=== PATIENT | male | born 1975 | race Two or more races ===

== ENCOUNTER 2021-06-17 17:39 | Emergency (ER) | payer MEDICAID, SELFPAY ==
--- NOTE | ~2021-06-17 | US_ITS ---
EXAMINATION: US VENOUS ULTRASOUND WITH DOPPLER LOWER EXTREMITY, LEFT CLINICAL INFORMATION: Left lower leg pain and swelling COMPARISON: None TECHNIQUE: Ultrasound of the deep veins is performed from the hip to the calf with compression sonography and color and pulse Doppler assessment. Spectral analysis with color-flow imaging is performed. FINDINGS: There is normal venous compression and respiratory variation and augmented flow. The visualized common femoral vein, superficial femoral vein, profunda femoral vein, popliteal vein, and the trifurcation region shows no evidence of deep venous thrombosis. There is no significant popliteal fossa cyst. If the patient's symptoms persist, followup ultrasound in 5 days 7 days might be of value to exclude proximal propagation from a non-visualized calf vein. US/US venous duplex LE IMPRESSION: No DVT demonstrated in the left lower extremity.
[2021-06-17 17:58] VITALS: BP 168/101; PULSE 104; RESP 18; TEMP 36.3; O2SAT 99; BMI 31.7
--- NOTE | 2021-06-17 19:39 | ED_ITS ---
HPI - Extremity Injury (Lower) General Chief Complaint: Extremity Injury, Lower Stated Complaint: left lower leg swollen Time Seen by Provider: 06/17/21 19:39 Source: patient Mode of arrival: ambulatory Limitations: no limitations History of Present Illness HPI Narrative: Patient is a 45 year old male presenting to the emergency department today with left lower leg pain. Patient states that as soon as he steps onto his left foot, he has pain that shoots from his heel to the rest of his foot. Patient states that because he has had some swelling to his lower leg, he would like to be evaluated for a blood clot. Patient denies any dizziness, lightheadedness, abdominal pain, nausea, vomiting, fever, chills, blurry vision, double vision, loss of vision, chest pain, difficulty breathing, shortness of breath, back pain, night sweats, pain with urination, increased urinary frequency, increased urinary urgency, blood in his urine or stool, syncope or a near syncopal episode, recent trauma or falls, bowel incontinence, bladder incontinence, bowel retention, bladder retention, or any other complaints at this time. Related Data Allergies Allergy/AdvReac Type Severity Reaction Status Date / Time No Known Allergies Allergy Verified 06/17/21 18:01 Review of Systems Constitutional: Constitutional: Reports no additional constitutional complaints, Denies chills, Denies fever(s) and Denies night sweats Eyes: Eyes: Reports no additional eye complaints, Denies blurry vision, Denies change in vision, Denies diplopia, Denies eye discharge, Denies loss of vision and Denies eye pain ENT: Denies dizziness Cardiovascular: Cardiovascular: Reports no additional cardiovascular complaints, Denies chest pain, Denies lightheadedness, Denies Loss of Consciousness and Denies dyspnea Respiratory: Respiratory: Reports no additional respiratory complaints and Denies dyspnea Gastrointestinal: Gastrointestinal: Reports no additional gastrointestinal complaints, Denies abdominal pain, Denies melena, Denies hematochezia, Denies change in bowel habits and Denies change in stool character Genitourinary: Genitourinary: Reports no additional male genitourinary complaints, Denies hematuria, Denies oliguria, Denies difficulty urinating, Denies dysuria, Denies urinary frequency, Denies urinary hesitancy, Denies urinary incontinence and Denies urinary urgency Musculoskeletal: Musculoskeletal: Reports no additional musculoskeletal complaints, Denies numbness and Denies tingling Comments: left heel pain, left lower leg swelling Neurologic: Denies dizziness, Denies loss of vision, Denies numbness and Denies tingling Psychiatric: Psychiatric: Reports no additional psychiatric complaints Endocrine: Endocrine: Reports no additional endocrine complaints Hematologic/Lymphatic: Hematologic/Lymphatic: Reports no additional hematologic/lymphatic complaints Allergic/Immunologic: Allergic/Immunologic: Reports no additional allergic/immunologic complaints [facility] Past Medical History Attestation statement: The following information was validated with the patient. Source: old records reviewed Medical History HTN (hypertension) Social History Social History Advance Directives: No Advance Directives Information Provided: No Physical Exam Vital Signs: Vital Signs: Last Vital Signs Temp 97.3 F 06/17/21 17:58 Pulse 104 H 06/17/21 17:58 Resp 18 06/17/21 17:58 BP 168/101 H 06/17/21 17:58 Pulse Ox 99 06/17/21 17:58 BMI result Body Mass Index 31.7 Const: General: cooperative, no acute distress, alert and awake Nutritional Appearance: well nourished Orientation/consciousness: patient oriented x3 Limitations: no limitations HENMT: Head: Yes normal to inspection and Yes atraumatic Ears: hearing grossly normal bilaterally and external ears normal General nose exam: Normal external nose present, no nasal discharge noted and no epistaxis Face and sinus: Yes normal facial exam, No abrasion and No laceration Mouth: Normal oral and palatal mucosa present, no drooling and no muffled voice Eyes: General: appearance normal, both eyes and all related structures Periorbital: periorbital findings normal Eyelids: Yes eyelids normal Conjunctivae: conjunctivae normal Pupils: Equal, round and reactive pupils present EOM: EOMs intact bilaterally Neck: Neck: Yes normal visual inspection, Yes full ROM and Yes no lymphadenopathy Chest: Chest palpation & inspection: normal inspection of the chest Resp: Effort & Inspection: normal respiratory effort and able to speak in complete sentences Auscultation: clear to auscultation bilaterally Cardio: Rate: regular rate Rhythm: regular rhythm GI: Inspection: Yes normal to inspection Neuro: General: patient oriented x3 and moves all extremities Cranial nerves: Yes Equal, round and reactive pupils present Cognition (Neuro): normal cognition Motor exam (neuro): 5/5 motor strength present throughout Sensory Exam: Normal double simultaneous stimulation for sensation Coordination: [id number] test normal Extrem: General: Yes normal to inspection, Yes full ROM and Yes capillary refill normal Psych: Appearance: grossly normal Mental Status: mental status grossly normal Affect: normal affect Attitude: cooperative Thought process: Normal thought process present Thought content: Normal thought content present Insight: Good insight present (Psych) MDM - Extremity Injury (Lower) MDM Narrative Medical decision making narrative: Patient is a 45 year old male presenting to the emergency department today with left heel pain and lower extremity swelling. Patient's physical exam was unremarkable. No swelling was appreciated to the left lower extremity. Patient's left lower leg ultrasound showed no acute process. I explained my physical exam findings as well as all test results to the patient. I answered all questions asked by the patient. I explained to the patient that the symptoms he is describing are consistent with plantar fasciaitis. I stressed the importance of the patient taking his medication as prescribed. I stressed the importance of the patient following up with his primary care provider and an orthopedic provider. I stressed the importance of the patient returning to the emergency department immediately if his symptoms were to worsen or if he were to develop any dizziness, shortness of breath, difficulty breathing, chest pain, blurry vision, loss of vision, nausea, vomiting, abdominal pain, fever, chills, back pain, or any other complaints. Patient verbalized agreement and understanding with this treatment plan and discharge. Differential Diagnosis Differential diagnosis: Likely ankle sprain and strain (plantar fasc) Medical Records Attestation: I reviewed the patient's medical records. Imaging Data Left lower leg venous US: Attestation: I personally reviewed and interpreted this imaging study as follows: Radiologist's impression: EXAMINATION:? US VENOUS ULTRASOUND WITH DOPPLER LOWER EXTREMITY, LEFT CLINICAL INFORMATION:? Left lower leg pain and swelling COMPARISON:? None TECHNIQUE: Ultrasound of the deep veins is performed from the hip to the calf with compression sonography and color and pulse Doppler assessment. Spectral analysis with color-flow imaging is performed. FINDINGS: There is normal venous compression and respiratory variation and augmented flow. The visualized common femoral vein, superficial femoral vein, profunda femoral vein, popliteal vein, and the trifurcation region shows no evidence of deep venous thrombosis. ? There is no significant popliteal fossa cyst. If the patient's symptoms persist, followup ultrasound in 5 days 7 days might be of value to exclude proximal propagation from a non-visualized calf vein. US/US venous duplex LE LT IMPRESSION: No DVT demonstrated in the left lower extremity. Dictated By: FLACO TORREZ MD Signed By: Electronically signed by FLACO TORREZ MD 06/17/212020 Discharge Plan Discharge Clinical Impression: Plantar fasciitis Patient Disposition: Home, Self-Care Instructions: Plantar Fasciitis (ED), Plantar Fasciitis Exercises (ED) Additional Instructions: Follow up with your primary care provider. Return to the emergency department immediately if your symptoms worsen or if you develop any dizziness, shortness of breath, difficulty breathing, chest pain, blurry vision, loss of vision, nausea, vomiting, abdominal pain, fever, chills, back pain, or any other complaints. Referrals: Xander Rosa MD [Physician] - 2 days Jennifer Evans NP [Primary Care Provider] - 2 days Discharge Date/Time: 06/17/21 21:11 Print Language: Burmese
[2021-06-17] MEDS: methylPREDNISolone Sod Succ 125 MG/2 ML VIAL 120 MG IM (20:52)
== END 2021-06-17 21:11 | disposition home or self-care (01) ==
PROVIDERS: Emergency Provider Internal Medicine; PCP Nurse Practitioner Primary Care
DX: M72.2 Plantar fascial fibromatosis (principal); M79.662 Pain in left lower leg; I10 Essential (primary) hypertension
CPT/HCPCS: 93971; 96372; 99282; 99284; J2930

== ENCOUNTER 2022-09-26 02:56 | Inpatient (IN) | payer MEDICAID, SELFPAY ==
[2022-09-26] VITALS (9 sets, daily range): BP systolic 128–167; BP diastolic 75–96; PULSE 64–88; RESP 18–21; TEMP 36.5–36.9; O2SAT 95–97; BMI 30.8; BMI 31.7
--- NOTE | ~2022-09-26 | XR_ITS ---
EXAMINATION: XR CHEST CLINICAL INFORMATION: Chest pain COMPARISON: 02/14/2013 TECHNIQUE: Frontal view of the chest was obtained. FINDINGS: No significant abnormality is noted involving the heart, lungs, mediastinum, bony thorax or soft tissues. XR/XR chest 1V IMPRESSION: Unremarkable examination.
--- NOTE | 2022-09-26 03:01 | ECG_ITS ---
Test Reason : CP Blood Pressure : / mmHG Vent. Rate : 082 BPM Atrial Rate : 082 BPM P-R Int : 136 ms QRS Dur : 100 ms QT Int : 378 ms P-R-T Axes : 056 044 019 degrees QTc Int : 441 ms Normal sinus rhythm Left ventricular hypertrophy with repolarization abnormality ( Sokolow-Trejo ) Nonspecific ST abnormality Abnormal ECG When compared with ECG of 14-FEB-2013 15:51, No significant change was found Referred By: Generic ED Physician Electronically Signed By:SARAY GARCIA MD
[2022-09-26 03:27] LABS: MANUAL DIFF FLAG NO
[2022-09-26 03:28] LABS: Basophils Percent Auto 0.4 % (0-2); Eosinophils Absolute Auto 0.4 X10*3/uL (0.0-0.4); Hematocrit 44.2 % (42.0-52.0); Hemoglobin 15.8 g/dl (14.0-18.0); Imm Gran Abs Auto 0.03 X10*3/uL (0.00-0.03); Imm Gran Pct Auto 0.3 % (0.0-0.4); Lymphocytes Absolute Auto 3.1 X10*3/uL (1.2-4.9); Lymphocytes Percent Auto 31.2 % (20-40); Mean Corpuscular HGB Conc 35.7 g/dl (31.0-36.0); Mean Corpuscular Hemoglobin 30.3 pg (27.0-33.0); Mean Corpuscular Volume 84.8 fL (80.0-98.0); Mean Platelet Volume 10.8 fL (9.4-12.4); Monocytes Absolute Auto 0.7 X10*3/uL (0.1-1.2); Neutrophils Absolute Auto 5.6 x10*3/uL (2.0-8.3); Neutrophils Percent Auto 57.1 % (45-73); Platelet Count 285 X10*3/uL (160-400); Red Blood Count 5.21 X10*6/uL (4.60-5.80); Red Cell Distribution Width 13.2 % (11.0-16.0); White Blood Count 9.8 X10*3/uL (4.8-10.8)
--- NOTE | 2022-09-26 03:38 | PC.NURSE ---
patient received in the ER patient complained of chest pain 11/19 patient vitals are being monitored patient is being seen by the doctor patient labs and ekg was given to the doctor patient will be monitored for safety
[2022-09-26 03:41] LABS: Anion Gap 16 (12-20); Blood Urea Nitrogen 22 mg/dL (9-16); Calcium 9.1 mg/dL (8.4-10.2); Carbon Dioxide 23 mmol/L (22-29); Chloride 104 mmol/L (96-108); Creatinine Clr Calc Pharmacy 88.9; Estimated Glomerular Filt Rate > 60; Glucose Random 172 mg/dL (60-115); Potassium 3.6 mmol/L (3.3-5.1); Sodium 139 mmol/L (135-145)
[2022-09-26 03:47] LABS: Troponin-I High Sensitivity 3.4 ng/L (<3.5-35.0)
--- NOTE | 2022-09-26 05:27 | ED_ITS ---
HPI - Chest Pain General Chief Complaint: Chest Pain Stated Complaint: Chest pain, cant feel L arm/ hand Time Seen by Provider: 09/26/22 05:26 Source: patient and family (, Mariya) Mode of arrival: ambulatory Limitations: no limitations History of Present Illness HPI narrative: 46-year-old male with a history of hypertension, non compliant with his lisinopril for 3 months who presents emergency department for evaluation of chest pain. The patient states that at 01:00 hours he was playing video games when he had a sudden onset chest pain. Patient points to his upper sternum when asked to localize the pain. He describes the pain is a tightness and heaviness. The pain is been constant since onset. States the pain was initially 10/10 at the time my evaluation the pain was 3/10 without any treatment. He states that he also had left arm numbness and weakness associated with the chest pain. He was diaphoretic and short of breath. The patient states that this is probably his 6th episode of this type of pain over the last 2-3 weeks. He states that several of his chest pain episodes came on after walking up stairs or after lifting heavy objects. Patient states that both his mother and father had heart attacks when they were in their 60s. He does not know if he has elevated cholesterol. He does have hypertension and he has been noncompliant with his medications for 3 months. Related Data Allergies Allergy/AdvReac Type Severity Reaction Status Date / Time No Known Allergies Allergy Verified 06/17/21 18:01 Review of Systems Review of Systems: Yes all other systems are reviewed and are negative [facility] Past Medical History [facility] Narrative: Social history: Patient is . He denies tobacco use. He occasionally drinks alcohol. He denies drug use. Medical History HTN (hypertension) Social History Social History Alcohol intake: never Smoked in Last 30 Days: No Use of substances other than those prescribed or required for medical reasons: No Advance Directives: No Advance Directives Information Provided: Yes Physical Exam Vital Signs: Vital Signs: Last Vital Signs Temp 98.4 F 09/26/22 06:11 Pulse 79 09/26/22 06:17 Resp 21 H 09/26/22 06:11 BP 145/88 H 09/26/22 06:17 Pulse Ox 97 09/26/22 06:11 O2 Del Method Room Air 09/26/22 06:11 BMI result Body Mass Index 30.8 Const: General: cooperative and no acute distress Orientation/consciousness: oriented to person and oriented to place Limitations: no limitations HEENT: Head: Yes normal to inspection, Yes normocephalic and Yes atraumatic Ears: external ears normal General nose exam: Normal external nose present Face and sinus: Yes normal facial exam Mouth: Normal oral and palatal mucosa present Throat: Yes posterior oropharynx normal Eyes: General: appearance normal, both eyes and all related structures Pupils: Equal, round and reactive pupils present Neck: Neck: Yes normal visual inspection, Yes no lymphadenopathy, Yes trachea midline and Yes supple Chest: Chest palpation & inspection: normal inspection of the chest and normal palpation of entire chest wall Resp: Effort & Inspection: normal respiratory effort and able to speak in complete sentences Auscultation: clear to auscultation bilaterally Cardio: Rate: regular rate Rhythm: regular rhythm Heart sounds: S1 normal heart sound present, S2 normal heart sound present and no murmurs GI: Inspection: Yes normal to inspection Palpation (GI): Soft to palpation, nontender and no guarding Auscultation: normal bowel sounds : General: Yes no CVA tenderness Back/Spine/Pelvis: Back: no CVA tenderness Skin: General skin exam: no rashes or lesions noted Neuro: General: oriented to person and oriented to place Cranial nerves: Yes CN's II-XII intact bilaterally and Yes Equal, round and reactive pupils present Cognition (Neuro): normal cognition Motor exam (neuro): 5/5 motor strength present throughout Extrem: General: Yes normal to inspection Psych: Appearance: grossly normal Speech and movement: Normal speech and movement present Affect: normal affect Attitude: cooperative Thought process: Normal thought process present Thought content: Normal thought content present Medications Administered Generic Name Dose Route Start Last Admin Trade Name Freq PRN Reason Stop Dose Admin Nitroglycerin 0.4 mg 09/26/22 05:46 09/26/22 06:17 Nitroglycerin 0.4 Mg Tab.Subl SUBLINGUAL 3 tab [id number] PRN Administration Chest Pain Discontinued Medications Generic Name Dose Route Start Last Admin Trade Name Freq PRN Reason Stop Dose Admin Aspirin 324 mg 09/26/22 05:46 09/26/22 06:15 Aspirin 81 Mg Tab.Chew PO 09/26/22 05:47 324 mg ONCE STA Administration Lactated Ringer's 1,000 mls @ 999 mls/hr 09/26/22 06:00 09/26/22 06:29 Lr IV 09/26/22 07:00 999 mls/hr .[id number] SONG Administration Medical Decision Making Medical Decision Making MDM Narrative: 46-year-old male who presents emergency department for evaluation of sudden onset of sternal chest heaviness/tightness which began at 01:00 hours when he wa s playing a video game. Patient's chest pain was associated with left arm numbness or weakness, diaphoresis and shortness of breath. The patient states that this is his 6th episode chest tightness/heaviness over the past 2-3 weeks. Several of these episodes came after minimal exertion such as walking up stairs or lifting heavy objects. Patient's vital signs did reveal an elevated blood pressure of 167/96 otherwise unremarkable. The patient's physical examination was unremarkable. Laboratory evaluation was ordered. Patient was ordered to get aspirin 324 mg to chew and nitroglycerin 0.4 mg sublingually Q 5 minutes x3 to see if this improves his pain. 0557: My interpretation patient's laboratory evaluation is as follows: CBC was normal. BMP revealed an elevated glucose of 172. Patient's initial high sensitive troponin was detectable but not elevated at 3.4. Repeat troponin was ordered for 06:30 hours. The patient's HEART score was 4 (H1,E0,A1,R2,T0) suggesting that he is at m oderate risk for MACE. 0659: Patient's repeat troponin significantly elevated at 284.9. The patient's pain did improve after getting sublingual nitroglycerin he is currently pain-free. I did discuss the patient's presentation elevated troponin with the covering qa reviewer, Dr. Aparicio. He recommended that we admit the patient here for further management. He also recommended atorvastatin 80 mg orally, metoprolol 25 mg orally, nitroglycerin paste 1 in to the chest wall, low-dose heparin and STEMI protocol, repeat EKG. He does not want the patient to get Brilinta or Plavix at this time. I will discuss the patient's presentation with the covering hospitalist. 0726: I did discuss the patient's presentation with the covering hospitalist Dr. Jansen. Patient's repeat EKG was unchanged with no ST segment elevation depression. Differential Diagnosis Differential diagnosis includes was not limited to myocardial infarction, myocardial ischemia, new onset angina, anxiety, costochondritis Admission/Observation Consideration of admission/observation: Escalation of care including admi ssion/observation considered Consult Healthcare Provider Management of the patient was discussed with: Hospitalist and Gl Accountant Lab Data MDM Lab Attestation statement: I reviewed the patient's lab results. 09/26/22 03:22 09/26/22 03:22 Labs: Lab Results 09/26/22 09/26/22 09/26/22 Range/Units 03:22 03:22 03:22 WBC 9.8 (4.8-10.8) X10*3/uL RBC 5.21 (4.60-5.80) X10*6/uL Hgb 15.8 (14.0-18.0) g/dl Hct 44.2 (42.0-52.0) % MCV 84.8 (80.0-98.0) fL MCH 30.3 (27.0-33.0) pg MCHC 35.7 (31.0-36.0) g/dl RDW 13.2 (11.0-16.0) % Plt Count 285 (160-400) X10*3/uL MPV 10.8 (9.4-12.4) fL Immature Gran % (Auto) 0.3 (0.0-0.4) % Neut % (Auto) 57.1 (45-73) % Lymph % (Auto) 31.2 (20-40) % [place] % (Auto) 7.0 (2-11) % Eos % (Auto) 4.0 (0-4) % Baso % (Auto) 0.4 (0-2) % Lymph # (Auto) 3.1 (1.2-4.9) X10*3/uL [place] # (Auto) 0.7 (0.1-1.2) X10*3/uL Eos # (Auto) 0.4 (0.0-0.4) X10*3/uL Baso # (Auto) 0.0 (0.0-0.2) X10*3/uL Abs Immat Gran (auto) 0.03 (0.00-0.03) X10*3/uL Absolute Neuts (auto) 5.6 (2.0-8.3) x10*3/uL Absolute Nucleated RBC 0.000 (0.0-0.012) X10*3/uL Nucleated RBC % (auto) 0.0 (0.0-0.2) /100WBC PT INR APTT Sodium 139 (135-145) mmol/L Potassium 3.6 (3.3-5.1) mmol/L Chloride 104 (96-108) mmol/L Carbon Dioxide 23 (22-29) mmol/L Anion Gap 16 (12-20) BUN 22 H (9-16) mg/dL Creatinine 1.19 (0.5-1.4) mg/dL Estim Creat Clear Calc 88.9 Estimated GFR > 60 Random Glucose 172 H (60-115) mg/dL Calcium 9.1 (8.4-10.2) mg/dL Troponin I High Sens 3.4 (<3.5-35.0) ng/L 09/26/22 09/26/22 09/26/22 Range/Units 06:02 07:03 07:03 WBC 9.2 (4.8-10.8) X10*3/uL RBC 4.72 (4.60-5.80) X10*6/uL Hgb 14.6 (14.0-18.0) g/dl Hct 40.9 L (42.0-52.0) % MCV 86.7 (80.0-98.0) fL MCH 30.9 (27.0-33.0) pg MCHC 35.7 (31.0-36.0) g/dl RDW 13.3 (11.0-16.0) % Plt Count 257 (160-400) X10*3/uL MPV 11.3 (9.4-12.4) fL Immature Gran % (Auto) (0.0-0.4) % Neut % (Auto) (45-73) % Lymph % (Auto) (20-40) % [place] % (Auto) (2-11) % Eos % (Auto) (0-4) % Baso % (Auto) (0-2) % Lymph # (Auto) (1.2-4.9) X10*3/uL [place] # (Auto) (0.1-1.2) X10*3/uL Eos # (Auto) (0.0-0.4) X10*3/uL Baso # (Auto) (0.0-0.2) X10*3/uL Abs Immat Gran (auto) (0.00-0.03) X10*3/uL Absolute Neuts (auto) (2.0-8.3) x10*3/uL Absolute Nucleated RBC 0.000 (0.0-0.012) X10*3/uL Nucleated RBC % (auto) 0.0 (0.0-0.2) /100WBC PT INR APTT Cancelled Sodium (135-145) mmol/L Potassium (3.3-5.1) mmol/L Chloride (96-108) mmol/L Carbon Dioxide (22-29) mmol/L Anion Gap (12-20) BUN (9-16) mg/dL Creatinine (0.5-1.4) mg/dL Estim Creat Clear Calc Estimated GFR Random Glucose (60-115) mg/dL Calcium (8.4-10.2) mg/dL Troponin I High Sens 284.9 H* D (<3.5-35.0) ng/L // Range/Units 07:03 WBC (4.8-10.8) X10*3/uL RBC (4.60-5.80) X10*6/uL Hgb (14.0-18.0) g/dl Hct (42.0-52.0) % MCV (80.0-98.0) fL MCH (27.0-33.0) pg MCHC (31.0-36.0) g/dl RDW (11.0-16.0) % Plt Count (160-400) X10*3/uL MPV (9.4-12.4) fL Immature Gran % (Auto) (0.0-0.4) % Neut % (Auto) (45-73) % Lymph % (Auto) (20-40) % [place] % (Auto) (2-11) % Eos % (Auto) (0-4) % Baso % (Auto) (0-2) % Lymph # (Auto) (1.2-4.9) X10*3/uL [place] # (Auto) (0.1-1.2) X10*3/uL Eos # (Auto) (0.0-0.4) X10*3/uL Baso # (Auto) (0.0-0.2) X10*3/uL Abs Immat Gran (auto) (0.00-0.03) X10*3/uL Absolute Neuts (auto) (2.0-8.3) x10*3/uL Absolute Nucleated RBC (0.0-0.012) X10*3/uL Nucleated RBC % (auto) (0.0-0.2) /100WBC PT Cancelled INR Cancelled APTT Sodium (135-145) mmol/L Potassium (3.3-5.1) mmol/L Chloride (96-108) mmol/L Carbon Dioxide (22-29) mmol/L Anion Gap (12-20) BUN (9-16) mg/dL Creatinine (0.5-1.4) mg/dL Estim Creat Clear Calc Estimated GFR Random Glucose (60-115) mg/dL Calcium (8.4-10.2) mg/dL Troponin I High Sens (<3.5-35.0) ng/L Independent Interpretation I performed an independent interpretation of an: EKG Interpretation: My independent interpretation the patient's 1st 12 EKG done at 03:04 hours is as follows: Normal sinus rhythm with a rate of 82, normal VA, QRS duration QTC interval, no ST segment elevation, no ST segment depression, inverted T-wave in lead 3, no PACs, no PVCs. My independent interpretation of the patient's 2nd 12 EKG done at 07:16 hours is as follows: Normal sinus rhythm rate of 73, normal VA interval, QRS duration QTC interval, no ST segment elevation, no ST segment depression, inverted T-wave in lead 3, no PACs, no PVCs. This is unchanged from the 1st EKG. Independent Historian Clinical information obtained from an independent historian. History obtained from or confirmed by: Spouse Critical Care Time Critical Care Time Critical Care Time: Yes Total Critical Care Time: 75 Attestation: Critical Care: The patient was critically ill with a high probability of imminent or life threatening deterioration. I spent greater than 30 minutes of discontinuous time evaluating the patient,delivering critical care at the bedside, discussing and evaluating pertinent data with consultants. Critical care time does not include time spent performing separately billable procedures or teaching. Total time spent performing critical care was 75 minutes. Discharge Plan Discharge Clinical Impression: Acute non-ST elevation myocardial infarction (NSTEMI), Chest pain Patient Disposition: Admitted As Inpatient
--- NOTE | 2022-09-26 05:46 | ECG_ITS ---
Test Reason : CP REPEAT Blood Pressure : / mmHG Vent. Rate : 073 BPM Atrial Rate : 073 BPM P-R Int : 132 ms QRS Dur : 096 ms QT Int : 410 ms P-R-T Axes : 050 026 019 degrees QTc Int : 451 ms Normal sinus rhythm Normal ECG When compared with ECG of 26-SEP-2022 07:13, No significant change was found Referred By: Gustavo Kenyon Electronically Signed By:SARAY GARCIA MD
[2022-09-26] MEDS: Aspirin 81 MG TAB.CHEW 324 MG PO (06:15)
[2022-09-26] MEDS: Nitroglycerin 0.4 MG TAB.SUBL SUBLINGUAL (06:17)
[2022-09-26] MEDS: Lactated Ringers 1,000 ML 999 ML IV (06:29)
[2022-09-26 06:30] LABS: Troponin-I High Sensitivity 284.9 ng/L (<3.5-35.0)
--- NOTE | 2022-09-26 07:00 | CA_ITS ---
Transthoracic Echocardiogram Patient (Last, First, Middle): Adam Enciso, Gender: Male Date of : 1975 Age: 46 Procedure Date: 09/26/2022 Procedure Type: Transthoracic Echocardiogram Location: ER Height: 177.8 cm Weight: 99.79 kg BSA: 2.17 m2 Heart Rate: 66 bpm BP: 165 / 89 mmHg [employer] Supervisor: ALICIA Referring MD: Khalif Jansen MD Clinical Lab Technologist: Jose Aparicio MD Symptoms: ACS Study Quality: Adequate w contrast ECG Rhythm: Sinus Conclusions: - 1. Mildly reduced LV systolic function with LVEF of 45-50% with grade 1 diastolic dysfunction 2. Normal cardiac valvular Dopplers 3. No gross pericardial effusion Findings Procedure Information Contrast agent, definity, is being given per protocol without apparent complications. Left Ventricle Normal left ventricular cavity size. There is normal left ventricular wall thickness. The left ventricular systolic function is mildly decreased. The visually estimated ejection fraction is between 45-50%. Spectral Doppler is indicative of an impaired relaxation filling pattern. E/E prime ratio is <8, consistent with normal filling pressures. Evidence suggests grade I (mild) diastolic dysfunction. There is mild septal asymmetric hypertrophy. Wall Motion Rest Echo Findings The basal inferior, mid inferior, and basal inferoseptal segments are hypokinetic. All other scored wall segments showed normal motion. Right Ventricle Normal right ventricular cavity size and systolic function. Atria The left atrium is likely dilated. There is lipomatous hypertrophy of the interatrial septum. There is no evidence of interatrial shunt. The right atrium is normal in size. Aortic Valve Normal aortic valve structure and function. There is no aortic valve stenosis. There is no aortic valve regurgitation. Mitral Valve There is mild anterior mitral leaflet thickening. There is no mitral valve regurgitation. There is no mitral valve stenosis. Pulmonic Valve The pulmonic valve is likely normal. Tricuspid Valve Likely normal tricuspid valve structure and function. Tricuspid regurgitation envelope is inadequate for calculation of right ventricular systolic pressure. Great Vessels All visible segments of the aorta are normal in size. The pulmonary artery was not well visualized. Venous The inferior vena cava was not well visualized. Pericardium/Pleural There is no evidence of pericardial effusion. Measurements 2D Linear Measurements IVSd: 1.12 0.6-0.9/0.6-1.0 cm LVIDd: 4.67 3.9-5.3/4.2-5.9 cm LVIDd Index: 2.15 2.4-3.2/2.2-3.1 cm/m2 LVIDs: 3.70 2.0-3.6 cm LVPWd: 0.87 0.7-1.1 cm LA Diam: 3.90 2.7-3.8/3.0-4.0 cm LAIDs Index: 1.80 1.5-2.3 cm/m2 LV Mass: 201.03 67-162/88-224 g LV Mass Index: 92.64 43-95/49-115 g/m2 LVOT Diam: 2.40 3.0+(-)1.3 cm 2D Systolic Function EF 4C: 46.20 >55% EF 2C: 54.70 >55% EF BiP: 50.20 >55% Mitral Valve MV Pk E: 0.54 MV PK A: 0.63 MV Decel Time: 165.00 E/A: 0.90 E'Lateral: 5.87 E'Medial: 6.42 E/E' Med: 8.30 E/E' Lat: 9.10 PHT: 48.00 MVA PHT: 4.58 Decel Phillips: 3.24 Aortic Valve AoV Pk Ferny: 1.11 AoV Pk Grad: 5.00 HENRI: 2.87 LVOT LVOT Pk Ferny: 0.73 LVOT Mn Ferny: 0.48 LVOT VTI: 0.16 LVOT Pk Grad: 2.00 LVOT Mn Grad: 1.00 LVOT Diam: 2.40 LVOT Area: 4.52 Diastolic Function MV Pk E: 0.54 MV Pk A: 0.63 E/A: 0.90 E'Medial: 6.42 E/E' Med: 8.30 E' Laterial: 5.87 E/E' Lat: 9.10 Right Ventricle TAPSE (mm): 20.90 TVS' Ferny: 10.30 Great Vessels Aorta Sinus of Valsalva: 3.40 2.0-3.5 cm Ao Asc: 3.40 2.1-3.4 cm Ao Arch: 2.80 Pulmonary Veins Pulm Vein S/D 2.00 Pulmonary Valve PV Pk Ferny: 0.85 Peak PV Grad: 3.00 Updated in Other Vendor System with Status of Final Jose Aparicio MD electronically signed on 09/26/2022 12:19:24 PM with status of Final
--- NOTE | 2022-09-26 07:14 | ECG_ITS ---
Test Reason : REPEAT Blood Pressure : / mmHG Vent. Rate : 073 BPM Atrial Rate : 073 BPM P-R Int : 130 ms QRS Dur : 096 ms QT Int : 402 ms P-R-T Axes : 051 025 016 degrees QTc Int : 442 ms Normal sinus rhythm Normal ECG When compared with ECG of 26-SEP-2022 03:04, Nonspecific ST abnormality has improved Referred By: Gustavo Kenyon Electronically Signed By:SARAY GARCIA MD
[2022-09-26 07:23] LABS: Hematocrit 40.9 % (42.0-52.0); Hemoglobin 14.6 g/dl (14.0-18.0); Mean Corpuscular HGB Conc 35.7 g/dl (31.0-36.0); Mean Corpuscular Hemoglobin 30.9 pg (27.0-33.0); Mean Corpuscular Volume 86.7 fL (80.0-98.0); Mean Platelet Volume 11.3 fL (9.4-12.4); Platelet Count 257 X10*3/uL (160-400); Red Blood Count 4.72 X10*6/uL (4.60-5.80); Red Cell Distribution Width 13.3 % (11.0-16.0); White Blood Count 9.2 X10*3/uL (4.8-10.8)
[2022-09-26 07:25] LABS: INTERNATIONAL NORM RATIO 1.2 (0.9-1.1); Prothrombin Time 13.8 SEC (10.0-13.1)
[2022-09-26] MEDS: Nitroglycerin 2 % Oint 1 GM Packet 1 INCH TRANSDERMA ×3 (07:28→20:52)
[2022-09-26] MEDS: Metoprolol Tartrate 25 MG TABLET PO ×2 (07:28→20:52)
[2022-09-26] MEDS: Atorvastatin Calcium 80 MG TABLET PO ×2 (07:28→20:52)
[2022-09-26] MEDS: Heparin Sodium,Porcine 5,000 UNIT/ML VIAL 4000 UNIT IVPUSH ×2 (07:42→14:43)
[2022-09-26] MEDS: Heparin Sodium,Porcine/1/2NS 25,000 UNIT/250 ML IV.SOLN 10 UNIT IVCONT (07:52)
[2022-09-26 08:57] LABS: Cholesterol 244 mg/dL; HDL Cholesterol 25 mg/dL; Triglycerides 447 mg/dL
--- NOTE | 2022-09-26 09:02 | PHA.MEDREC ---
Pharmacy Consult ? Medication Reconciliation Pharmacy has completed the medication reconciliation. Patient states they were on lisinopril 40mg daily 3 months ago and stopped taking the medication because they felt better . According to the patient, they have not notified their MD of this and have not seen a doctor in 8 years.
[2022-09-26 09:13] LABS: Troponin-I High Sensitivity 975.2 ng/L (<3.5-35.0)
--- NOTE | 2022-09-26 11:00 | P.CONCA_ITS ---
History of Present Illness History of Present Illness Date of Service: 09/26/22 Requesting physician: Khalif Jansen Consult reason: other (Acute coronary syndrome) Chief complaint: Chest pain, cant feel L arm/ hand Narrative: I was consulted to see Adam in cardiology consultation today for chest discomfort elevated troponins. He is a 46-year-old male who was prior diagnose hypertension and mixed hyperlipidemia from chart but currently not taking any medications. He said he was diagnosed hypertension and was taking lisinopril but then he cut down his salt intake a lot and felt that he did not need his blood pressure medication has been not taking for many months. He came to the hospital with acute chest discomfort in the precordial area which felt like pressure radiating to left arm. Symptoms started at 01:00. However over the last 2-3 weeks he has been having ongoing symptoms of intermittent chest pressure with exertion. He came to the emergency room initial troponin was negative subsequent troponin was elevated consistent with acute coronary syndrome. He was also noted to be hypertensive. Patient has been admitted now and has been chest pain-free after given sublingual nitroglycerin and nitro paste. Blood pressure remains elevated. He currently denies any chest pain or shortness of breath. Denies any palpitations, lightheadedness, syncope. No prior cardiovascular issues except for elevated blood pressure for which she is not currently taking medicines Review of Systems Constitutional: Constitutional: Reports no additional constitutional complaints ENT: Reports system reviewed and no additional complaints, except as documented Cardiovascular: Cardiovascular: Reports chest pain at rest, Reports chest pain with activity, Denies rapid heart rate, Denies leg edema, Denies Loss of Consciousness, Denies palpitations and Denies dyspnea Respiratory: Respiratory: Reports no additional respiratory complaints and Denies dyspnea Gastrointestinal: Gastrointestinal: Reports no additional gastrointestinal complaints Genitourinary: Genitourinary: Reports no additional male genitourinary complaints Musculoskeletal: Musculoskeletal: Reports no additional musculoskeletal complaints Integumentary/Breasts: Skin/Breast: Reports system reviewed and no additional complaints, except as docu Neurologic: Reports system reviewed and no additional complaints, except as documented Psychiatric: Psychiatric: Reports no additional psychiatric complaints Endocrine: Endocrine: Reports no additional endocrine complaints and Denies palpitations Hematologic/Lymphatic: Hematologic/Lymphatic: Reports no additional hematologic/lymphatic complaints Allergic/Immunologic: Allergic/Immunologic: Reports no additional all ergic/immunologic complaints PMFSH Past Medical History Medical History HTN (hypertension) Social History Social History Alcohol intake: never Smoked in Last 30 Days: No Use of substances other than those prescribed or required for medical reasons: No Advance Directives: No Advance Directives Information Provided: Yes Meds Allergies Allergy/AdvReac Type Severity Reaction Status Date / Time No Known Allergies Allergy Verified 06/17/21 18:01 Active Medications: Current Medications Heparin Sodium (Porcine) (Heparin Sodium,Porcine 5,000 Unit/Ml Vial) 4,000 unit 40 unit/kg (4000 unit) IVPUSH PROTOCOL BOLUS PRN; Protocol PRN Reason: 40 unit/kg - Heparin Protocol Heparin Sodium (Porcine) (Heparin Sodium,Porcine 5,000 Unit/Ml Vial) 8,000 unit 80 unit/kg (8000 unit) IVPUSH PROTOCOL BOLUS PRN; Protocol PRN Reason: 80 unit/kg - Heparin Protocol Heparin Sodium/Sodium Chloride (Heparin Sodium,Porcine/1/2ns) 25,000 unit in 250 mls @ 0 mls/hr IVCONT .Q0M SONG; Protocol Last Admin: 09/26/22 07:52 Dose: 9.99 units/kg/hr, 10 mls/hr Nitroglycerin (Nitroglycerin 0.4 Mg Tab.Subl) 0.4 mg SUBLINGUAL Q5MX3 PRN PRN Reason: Chest Pain Last Admin: 09/26/22 06:17 Dose: 3 tab Home Medications Medication Instructions Recorded Confirmed Last Taken Type ibuprofen 400 mg tablet 400 mg PO Q8H PRN Pain 09/26/22 09/26/22 Unknown History Physical Exam Vital Signs: Vital Signs: Last Vital Signs Temp 98.4 F 09/26/22 06:11 Pulse 73 09/26/22 07:28 Resp 21 H 09/26/22 06:11 BP 165/89 H 09/26/22 07:28 Pulse Ox 97 09/26/22 06:11 O2 Del Method Room Air 09/26/22 06:11 BMI result Body Mass Index 31.7 Const: General: cooperative, comfortable, no acute distress, alert, awake and Physically active Nutritional Appearance: overweight Orientation/consciousness: patient oriented x3 Limitations: no limitations HEENT: Head: Yes normocephalic and Yes atraumatic Neck: Neck: Yes trachea midline, Yes supple and Yes no JVD Resp: Effort & Inspection: normal respiratory effort Auscultation: clear to auscultation bilaterally Cardio: Jugular venous distension: no JVD Palpation: normal PMI Rate: regular rate Rhythm: regular rhythm Heart sounds: S1 normal heart sound present, S2 normal heart sound present, no click, no gallops, no murmurs and no rubs GI: Auscultation: normal bowel sounds Skin: General skin exam: no rashes or lesions noted Neuro: General: patient oriented x3 and no focal motor deficits Extrem: General: Yes no clubbing, cyanosis or edema Psych: Appearance: grossly normal Objective Labs and Meds 09/26/22 07:03 09/26/22 03:22 Lab results: Laboratory Results - last 24 hr 09/26/22 09/26/22 09/26/22 03:22 03:22 03:22 WBC 9.8 RBC 5.21 Hgb 15.8 Hct 44.2 MCV 84.8 MCH 30.3 MCHC 35.7 RDW 13.2 Plt Count 285 MPV 10.8 Immature Gran % (Auto) 0.3 Neut % (Auto) 57.1 Lymph % (Auto) 31.2 [place] % (Auto) 7.0 Eos % (Auto) 4.0 Baso % (Auto) 0.4 Lymph # (Auto) 3.1 [place] # (Auto) 0.7 Eos # (Auto) 0.4 Baso # (Auto) 0.0 Abs Immat Gran (auto) 0.03 Absolute Neuts (auto) 5.6 Absolute Nucleated RBC 0.000 Nucleated RBC % (auto) 0.0 PT INR APTT aPTT Heparin Protocol Sodium 139 Potassium 3.6 Chloride 104 Carbon Dioxide 23 Anion Gap 16 BUN 22 H Creatinine 1.19 Estim Creat Clear Calc 88.9 Estimated GFR > 60 Random Glucose 172 H Calcium 9.1 Troponin I High Sens 3.4 Triglycerides Cholesterol LDL Cholesterol, Calc HDL Cholesterol 09/26/22 09/26/22 09/26/22 06:02 07:03 07:03 WBC 9.2 RBC 4.72 Hgb 14.6 Hct 40.9 L MCV 86.7 MCH 30.9 MCHC 35.7 RDW 13.3 Plt Count 257 MPV 11.3 Immature Gran % (Auto) Neut % (Auto) Lymph % (Auto) [place] % (Auto) Eos % (Auto) Baso % (Auto) Lymph # (Auto) [place] # (Auto) Eos # (Auto) Baso # (Auto) Abs Immat Gran (auto) Absolute Neuts (auto) Absolute Nucleated RBC 0.000 Nucleated RBC % (auto) 0.0 PT 13.8 H INR 1.2 H APTT aPTT Heparin Protocol 31.0 L Sodium Potassium Chloride Carbon Dioxide Anion Gap BUN Creatinine Estim Creat Clear Calc Estimated GFR Random Glucose Calcium Troponin I High Sens 284.9 H* D Triglycerides Cholesterol LDL Cholesterol, Calc HDL Cholesterol 09/26/22 09/26/22 09/26/22 07:03 07:03 08:31 WBC RBC Hgb Hct MCV MCH MCHC RDW Plt Count MPV Immature Gran % (Auto) Neut % (Auto) Lymph % (Auto) [place] % (Auto) Eos % (Auto) Baso % (Auto) Lymph # (Auto) [place] # (Auto) Eos # (Auto) Baso # (Auto) Abs Immat Gran (auto) Absolute Neuts (auto) Absolute Nucleated RBC Nucleated RBC % (auto) PT Cancelled INR Cancelled APTT Cancelled aPTT Heparin Protocol Sodium Potassium Chloride Carbon Dioxide Anion Gap BUN Creatinine Estim Creat Clear Calc Estimated GFR Random Glucose Calcium Troponin I High Sens Triglycerides 447 Cholesterol 244 LDL Cholesterol, Calc TNP HDL Cholesterol 25 09/26/22 08:31 WBC RBC Hgb Hct MCV MCH MCHC RDW Plt Count MPV Immature Gran % (Auto) Neut % (Auto) Lymph % (Auto) [place] % (Auto) Eos % (Auto) Baso % (Auto) Lymph # (Auto) [place] # (Auto) Eos # (Auto) Baso # (Auto) Abs Immat Gran (auto) Absolute Neuts (auto) Absolute Nucleated RBC Nucleated RBC % (auto) PT INR APTT aPTT Heparin Protocol Sodium Potassium Chloride Carbon Dioxide Anion Gap BUN Creatinine Estim Creat Clear Calc Estimated GFR Random Glucose Calcium Troponin I High Sens 975.2 H* D Triglycerides Cholesterol LDL Cholesterol, Calc HDL Cholesterol EKG 1. Shows normal sinus rhythm with diffuse mild ST sagging with LVH. EKG 2. Shows normal sinus rhythm normal EKG with improved ST segments Imaging Radiologist's impression: Impressions Chest X-Ray 09/26/22 06:27 IMPRESSION: Unremarkable examination. Assessment and Plan (1) Acute coronary syndrome: Status: Acute Acute coronary syndrome with high risk features with transient ST changes as well as abnormal troponins and prolonged chest pain. Multiple risk factors including hypertension and mixed hyperlipidemia with elevated sugars. Patient currently is chest pain-free. Has been started nitropaste and metoprolol therapy as recommended. Also on currently aspirin as well as IV heparin and high-intensity statin therapy. Would avoid dual antiplatelet agent till he undergoes cardiac catheterization. He will require cardiac catheterization and this was discussed with him. Currently stable and does not require transfer to [facility] as of yet. But will transfer him next day or 2. Will obtain echocardiogram to assess LV systolic and diastolic function. Advised the patient the findings and the management plan. Risks, benefits, alternatives of cardiac catheterization with discussed. He understands and agrees. Continue aggressive control blood pressure started with metoprolol and nitropaste and if needed can add valsartan or lisinopril if blood pressure remains still elevated. Will follow with him. Thank you for allowing me to partake in his care Time Spent With Patient Time: Total time managing care of this patient today ____ minutes. Procedures Date of Service Date of Service: 09/26/22
[2022-09-26 11:04] LABS: PTT Heparin Drip 52.8 SEC (53-77.9)
--- NOTE | 2022-09-26 11:15 | P.HPHOSP_ITS ---
History of Present Illness Date of Service: 09/26/22 Chief Complaint: Chest pain 46-year-old gentleman with past medical history significant for hypertension, hyperlipidemia, stop taking antihypertensive 3 months ago and has not been on statins for a long time presented to [facility] emergency room due to midsternal chest discomfort that started at 01:00 while he was playing video games with radiation of pain towards the neck,and left arm numbness, he describes pain as heaviness and tightness associated with diaphoresis, no palpitations, no shortness of breath, as per patient he has been having intermittent chest discomfort for last 2-3 weeks lasting for 10 minutes usually occurring with exertion like walking up stairs or lifting heavy object resolved by itself, today patient took heartburn medication without any relief in symptoms therefore presented to emergency room,, in the emergency room patient initial EKG showed some ST sagging in lateral leads, initial troponin was negative however repeat troponin 284, chest x-ray showed no acute abnormality. due to patient's multiple coronary artery disease risk factors for hypertension, hyperlipidemia, family history, ex-smoker and with presentation consistent with acute coronary syndrome, patient treated in the emergency room with IV heparin, metoprolol, Lipitor and nitro paste, chest pain resolved in the ED after use of aspirin and nitro sublingual and now being admitted to [facility] for continued monitoring and treatment and possible discharge to [facility] for cardiac catheterization. Review of Systems Review of Systems: General no headache no dizziness no fever chills. CVS no recurrent chest pain, no palpitation. Respiratory no cough no sob Gastrointestinal no nausea, no vomiting, no abdominal pain PMFSH Medical History HTN (hypertension) Social History Alcohol intake: never Smoked in Last 30 Days: No Use of substances other than those prescribed or required for medical reasons: No Advance Directives: No Advance Directives Information Provided: Yes Meds Allergies Allergy/AdvReac Type Severity Reaction Status Date / Time No Known Allergies Allergy Verified 06/17/21 18:01 Active Medications: Current Medications Acetaminophen (Acetaminophen 325 Mg Tablet) 650 mg PO Q6H PRN PRN Reason: Pain, Mild (Pain Scale 1-3) Aspirin (Aspirin Enteric Coated 81 Mg Tablet.) 81 mg PO DAILY SONG Atorvastatin Calcium (Atorvastatin Calcium 80 Mg Tablet) 80 mg PO BEDTIME [facility] Heparin Sodium (Porcine) (Heparin Sodium,Porcine 5,000 Unit/Ml Vial) 4,000 unit 40 unit/kg (4000 unit) IVPUSH PROTOCOL BOLUS PRN; Protocol PRN Reason: 40 unit/kg - Heparin Protocol Heparin Sodium (Porcine) (Heparin Sodium,Porcine 5,000 Unit/Ml Vial) 8,000 unit 80 unit/kg (8000 unit) IVPUSH PROTOCOL BOLUS PRN; Protocol PRN Reason: 80 unit/kg - Heparin Protocol Heparin Sodium/Sodium Chloride (Heparin Sodium,Porcine/1/2ns) 25,000 unit in 250 mls @ 0 mls/hr IVCONT .Q0M [facility]; Protocol Last Admin: 09/26/22 07:52 Dose: 9.99 units/kg/hr, 10 mls/hr Metoprolol Tartrate (Metoprolol Tartrate 25 Mg Tablet) 25 mg PO BID [facility]; Protocol Nitroglycerin (Nitroglycerin 0.4 Mg Tab.Subl) 0.4 mg SUBLINGUAL Q5MX3 PRN PRN Reason: Chest Pain Last Admin: 09/26/22 06:17 Dose: 3 tab Nitroglycerin (Nitroglycerin 0.4 Mg Tab.Subl) 0.4 mg SUBLINGUAL Q5MX3 PRN PRN Reason: Chest Pain Nitroglycerin (Nitroglycerin 2 % Oint 1 Gm Packet) 1 inch TRANSDERMA Q6H [facility] Ondansetron HCl (Ondansetron Hcl 4 Mg/2 Ml Vial) 4 mg IVPUSH Q8H PRN PRN Reason: Nausea and Vomiting Sodium Chloride (0.9 % Sodium Chloride Flush 3 Ml Syringe) 3 ml IVFLUSH QSHIFT [facility] Home Medications Medication Instructions Recorded Confirmed Last Taken Type ibuprofen 400 mg tablet 400 mg PO Q8H PRN Pain 09/26/22 09/26/22 Unknown History Physical Exam Vital Signs and Narrative: Vital Signs: Last Vital Signs Temp 98.4 F 09/26/22 06:11 Pulse 73 09/26/22 07:28 Resp 21 H 09/26/22 06:11 BP 165/89 H 09/26/22 07:28 Pulse Ox 97 09/26/22 06:11 O2 Del Method Room Air 09/26/22 06:11 BMI result Body Mass Index 31.7 Const: Other: General Awake alert x3, resting comfortably in no acute distress. HEENT PERRLA anicteric sclera Neck is supple no JVD. CVS regular rate rhythm, Respiratory lungs clear to auscultation, no respiratory distress, no wheeze, no rhonchi. Gastrointestinal abdomen soft, nontender, bowel sounds audible, no guarding , no rigidity. Extremities no edema. Neuro nonfocal Skin no rash psych appropriate affect Results Labs 09/26/22 07:03 09/26/22 03:22 Labs: Laboratory Results - last 24 hr 09/26/22 09/26/22 09/26/22 03:22 03:22 03:22 MCV 84.8 MCH 30.3 MCHC 35.7 RDW 13.2 Plt Count 285 MPV 10.8 Immature Gran % (Auto) 0.3 Neut % (Auto) 57.1 Lymph % (Auto) 31.2 [place] % (Auto) 7.0 Eos % (Auto) 4.0 Baso % (Auto) 0.4 Lymph # (Auto) 3.1 [place] # (Auto) 0.7 Eos # (Auto) 0.4 Baso # (Auto) 0.0 Abs Immat Gran (auto) 0.03 Absolute Neuts (auto) 5.6 Absolute Nucleated RBC 0.000 Nucleated RBC % (auto) 0.0 PT INR APTT aPTT Heparin Protocol Anion Gap 16 Estim Creat Clear Calc 88.9 Estimated GFR > 60 Random Glucose 172 H Calcium 9.1 Troponin I High Sens 3.4 Triglycerides Cholesterol LDL Cholesterol, Calc HDL Cholesterol 09/26/22 09/26/22 09/26/22 06:02 07:03 07:03 MCV 86.7 MCH 30.9 MCHC 35.7 RDW 13.3 Plt Count 257 MPV 11.3 Immature Gran % (Auto) Neut % (Auto) Lymph % (Auto) [place] % (Auto) Eos % (Auto) Baso % (Auto) Lymph # (Auto) [place] # (Auto) Eos # (Auto) Baso # (Auto) Abs Immat Gran (auto) Absolute Neuts (auto) Absolute Nucleated RBC 0.000 Nucleated RBC % (auto) 0.0 PT 13.8 H INR 1.2 H APTT aPTT Heparin Protocol 31.0 L Anion Gap Estim Creat Clear Calc Estimated GFR Random Glucose Calcium Troponin I High Sens 284.9 H* D Triglycerides Cholesterol LDL Cholesterol, Calc HDL Cholesterol 09/26/22 09/26/22 09/26/22 07:03 07:03 08:31 MCV MCH MCHC RDW Plt Count MPV Immature Gran % (Auto) Neut % (Auto) Lymph % (Auto) [place] % (Auto) Eos % (Auto) Baso % (Auto) Lymph # (Auto) [place] # (Auto) Eos # (Auto) Baso # (Auto) Abs Immat Gran (auto) Absolute Neuts (auto) Absolute Nucleated RBC Nucleated RBC % (auto) PT Cancelled INR Cancelled APTT Cancelled aPTT Heparin Protocol Anion Gap Estim Creat Clear Calc Estimated GFR Random Glucose Calcium Troponin I High Sens Triglycerides 447 Cholesterol 244 LDL Cholesterol, Calc TNP HDL Cholesterol 25 09/26/22 08:31 MCV MCH MCHC RDW Plt Count MPV Immature Gran % (Auto) Neut % (Auto) Lymph % (Auto) [place] % (Auto) Eos % (Auto) Baso % (Auto) Lymph # (Auto) [place] # (Auto) Eos # (Auto) Baso # (Auto) Abs Immat Gran (auto) Absolute Neuts (auto) Absolute Nucleated RBC Nucleated RBC % (auto) PT INR APTT aPTT Heparin Protocol Anion Gap Estim Creat Clear Calc Estimated GFR Random Glucose Calcium Troponin I High Sens 975.2 H* D Triglycerides Cholesterol LDL Cholesterol, Calc HDL Cholesterol Imaging Radiologist's Impressions: Impressions Chest X-Ray 09/26/22 06:27 IMPRESSION: Unremarkable examination. Assessment and Plan (1) Acute coronary syndrome: Status: Acute (2) Acute non-ST elevation myocardial infarction (NSTEMI): Status: Acute Plan 46-year-old gentleman with past medical history significant for hypertension, hyperlipidemia noncompliant with medications presented to [facility] with chest pain diagnosed to have acute coronary syndrome with elevated troponin mild initial ST changes on EKG that improved on subsequent EKGs patient receive IV heparin, aspirin, metoprolol and Lipitor in the ED and now being admitted to telemetry. Acute non ST elevation MT chest pain resolved, no recurrent symptoms since arrival to ED. no evidence of CHF or arrhythmia admit to telemetry unit on IV heparin/Lipitor 80 mg at bedtime, metoprolol 25 mg b.i.d., aspirin 81 mg daily/nitropaste follow echo/ cardiac diet/ close cardiac monitoring case discussed with Cardiology patient will be transferred to [facility] in next 1-2 days hypertension placed on metoprolol 25 mg b.i.d. follow blood pressure closely, follow e chocardiogram adjust medications hyperlipidemia/ hypertriglyceridemia LDL test not performed due to elevated triglyceride will check directed LDL, low HDL of 25 placed on Lipitor 80 mg at bedtime code status full code DVT prophylaxis on had IV heparin in my clinical judgment patient will need 2 night inpatient stay due to acute coronary syndrome on IV heparin drip requiring close cardiac monitoring. Time Spent With Patient Time: Total time managing care of this patient today ____ minutes. Quality Stroke Does the patient have a stroke diagnosis?: No VTE Prior VTE?: No VTE Risk Level:: Medical - moderate - high VTE Device Contraindication: Treatment Not Indicated VTE Drug Contraindication: N/A - Med Ordered
--- NOTE | 2022-09-26 11:40 | PC.NURSE ---
nitro paste order is for Q6H, sophy texted MD asking if they would like the full inch that often. awaiting answer.
--- NOTE | 2022-09-26 11:53 | PC.NURSE ---
per MD, hold nitro pasted now, and administer 2 hours from scheduled, [id number]
--- NOTE | 2022-09-26 13:35 | MHC.CM.PN ---
Met w/pt and spouse to review d/c planning needs: pt independent w/all care needs, no DME or services: spouse will transport pt to home vs ALS if tx to [facility] for cardiac intervention. HCP declined - CM to follow for changes in d/c plan
--- NOTE | 2022-09-26 14:03 | PC.NURSE ---
pr , nitro paste was held until 6h past first dose. Pharmacy retimed med. Nitro pasted given per new time.
[2022-09-26 14:08] LABS: PTT Heparin Drip 49.9 SEC (53-77.9)
--- NOTE | 2022-09-26 14:49 | PC.NURSE ---
6h PTT HD results indicate increasing dose rate by 2ml hr and administer bolus. cosigned with Amador SANTAMARIA
[2022-09-26] MEDS: 0.9 % Sodium Chloride Flush 3 ML SYRINGE IVFLUSH (21:04)
[2022-09-26 21:39] LABS: COVID-19 Test Negative (Negative); IDNOW Serial# BCCEAD1C
[2022-09-26 22:46] LABS: PTT Heparin Drip 136.2 SEC (53-77.9)
--- NOTE | 2022-09-27 | ECG_ITS ---
Test Reason : nstemi Blood Pressure : / mmHG Vent. Rate : 066 BPM Atrial Rate : 066 BPM P-R Int : 138 ms QRS Dur : 094 ms QT Int : 424 ms P-R-T Axes : 055 037 017 degrees QTc Int : 444 ms Normal sinus rhythm Normal ECG When compared with ECG of 26-SEP-2022 07:16, No significant change was found Referred By: Khalif Jansen Electronically Signed By:NITO FORD
[2022-09-27 00:35] LABS: PTT Heparin Drip 83.4 SEC (53-77.9)
[2022-09-27] MEDS: Acetaminophen 325 MG TABLET 650 MG PO ×3 (00:55→16:27)
[2022-09-27] MEDS: Nitroglycerin 2 % Oint 1 GM Packet 1 INCH TRANSDERMA ×2 (01:55→08:35)
[2022-09-27 03:49] VITALS: BP 136/79; PULSE 66; RESP 20; TEMP 36.4; O2SAT 96
[2022-09-27] MEDS: Heparin Sodium,Porcine/1/2NS 25,000 UNIT/250 ML IV.SOLN 10 UNIT IVCONT (04:41)
[2022-09-27 06:50] LABS: Hematocrit 43.4 % (42.0-52.0); Hemoglobin 15.2 g/dl (14.0-18.0); Mean Corpuscular Hemoglobin 30.3 pg (27.0-33.0); Mean Corpuscular Volume 86.5 fL (80.0-98.0); Mean Platelet Volume 11.4 fL (9.4-12.4); Platelet Count 254 X10*3/uL (160-400); Red Blood Count 5.02 X10*6/uL (4.60-5.80); Red Cell Distribution Width 13.3 % (11.0-16.0); White Blood Count 10.2 X10*3/uL (4.8-10.8)
[2022-09-27 07:34] LABS: INTERNATIONAL NORM RATIO 1.2 (0.9-1.1); Prothrombin Time 13.4 SEC (10.0-13.1)
[2022-09-27 07:36] LABS: PTT Heparin Drip 82.3 SEC (53-77.9)
[2022-09-27 08:00] VITALS: BP 153/92; PULSE 74; RESP 20; TEMP 36.4; O2SAT 98
[2022-09-27] MEDS: Aspirin Enteric Coated 81 MG TABLET.DR PO (08:34)
[2022-09-27] MEDS: Metoprolol Tartrate 25 MG TABLET PO (08:34)
[2022-09-27 11:17] VITALS: BP 128/74; PULSE 65; RESP 16; TEMP 36.5; O2SAT 96
[2022-09-27 12:11] LABS: PTT Heparin Drip 66.9 SEC (53-77.9)
--- NOTE | 2022-09-27 12:27 | P.PNCA_ITS ---
Subjective Subjective Date of Service: 09/27/22 Principal diagnosis: Acute coronary syndrome Interval history: His short episode of chest pressure yesterday. Since then no further episodes. His troponins are still up trending. Echocardiogram shows normal LV systolic function but with some wall motion abnormality in the RCA territory. No overnight arrhythmias. Blood pressures was still elevated this morning. He is not tolerating nitropaste with headaches. Review of Systems Review of Systems Yes all other systems are reviewed and are negative Physical Exam Vital Signs: Last Vital Signs Temp 97.7 F 09/27/22 11:17 Pulse 65 09/27/22 11:17 Resp 16 09/27/22 11:17 BP 128/74 09/27/22 11:17 Pulse Ox 96 09/27/22 11:17 O2 Del Method Room Air 09/27/22 11:17 BMI result Body Mass Index 31.7 Const General: cooperative, comfortable, no acute distress, alert, awake and Physically active Nutritional Appearance: overweight Orientation/consciousness: patient oriented x3 Limitations: no limitations Neck Neck: Yes trachea midline, Yes supple and Yes no JVD Resp Effort & Inspection: normal respiratory effort Auscultation: clear to auscultation bilaterally Cardio Jugular venous distension: no JVD Palpation: normal PMI Rate: regular rate Rhythm: regular rhythm Heart sounds: S1 normal heart sound present, S2 normal heart sound present, no click, no gallops, no murmurs and no rubs GI Auscultation: normal bowel sounds Skin General skin exam: no rashes or lesions noted Neuro General: patient oriented x3 and no focal motor deficits Extrem General: Yes no clubbing, cyanosis or edema Psych Appearance: grossly normal Objective Labs and Meds 09/27/22 06:15 09/26/22 03:22 Lab results: Laboratory Results - last 24 hr 09/26/22 09/26/22 09/26/22 13:42 20:55 21:00 WBC RBC Hgb Hct MCV MCH MCHC RDW Plt Count MPV Absolute Nucleated RBC Nucleated RBC % (auto) PT INR aPTT Heparin Protocol 49.9 L 136.2 H* D COVID-19 ([facility]) Negative COVID-19 Clin Com See Note 09/27/22 09/27/22 09/27/22 00:15 06:15 06:15 WBC 10.2 RBC 5.02 Hgb 15.2 Hct 43.4 MCV 86.5 MCH 30.3 MCHC 35.0 RDW 13.3 Plt Count 254 MPV 11.4 Absolute Nucleated RBC 0.000 Nucleated RBC % (auto) 0.0 PT 13.4 H INR 1.2 H aPTT Heparin Protocol 83.4 H D COVID-19 ([facility]) COVID-19 Clin Com 09/27/22 09/27/22 06:15 11:45 WBC RBC Hgb Hct MCV MCH MCHC RDW Plt Count MPV Absolute Nucleated RBC Nucleated RBC % (auto) PT INR aPTT Heparin Protocol 82.3 H 66.9 COVID-19 ([facility]) COVID-19 Clin Com Progress Note: A&P Assessment and plan (1) Acute coronary syndrome: Status: Acute Assessment and Plan: Patient with acute coronary syndrome with high risk features. Needs cardiac catheterization. Discussed with him. He had recurrent chest pain last night which was transient. Continue maximize metoprolol therapy. Add Norvasc and discontinue nitropaste due to headaches. Continue high-intensity statin therapy, aspirin and IV heparin. Discussed with him the risks, benefits, alternatives to cardiac catheterization understands agrees. Will be transferred to [facility] later today but based on bed availability. Thank you for allowing me to partake in his care Time Spent With Patient Time: Total time managing care of this patient today ____ minutes. Progress Note: Quality Stroke Does the patient have a stroke diagnosis?: No Procedures Date of Service Date of Service: 09/27/22
--- NOTE | 2022-09-27 12:34 | PM.DS ---
DS: Providers Provider Date of Service: 09/27/22 Date of admission: 09/26/22 11:02 Primary care physician: Jennifer Evans NP Consults: 09/26/22 07:01 Consult to Cardiology Stat Consulting Provider: [facility] Cardiovascular Services Reason for consultation: NSTEMI DS: Diagnosis Discharge Diagnosis (1) Acute coronary syndrome: Status: Acute DS: Summary Hospital Course Hospital Course: Acute coronary syndrome with high risk features with transient ST changes as well as abnormal troponins and prolonged chest pain.? Multiple risk factors including hypertension and mixed hyperlipidemia with elevated sugars.? Patient currently is chest pain-free.? Has been started nitropaste and metoprolol therapy as recommended.? Also on currently aspirin as well as IV heparin and high-intensity statin therapy.? Would avoid dual antiplatelet agent till he undergoes cardiac catheterization.? He will require cardiac catheterization and this was discussed with him.? Currently stable and does not require transfer to [facility] as of yet.? But will transfer him next day or 2.? Will obtain echocardiogram to assess LV systolic and diastolic function.? Advised the patient the findings and the management plan.? Risks, benefits, alternatives of cardiac catheterization with discussed.? He understands and agrees.? Continue aggressive control blood pressure started with metoprolol and nitropaste and if needed can add valsartan or lisinopril if blood pressure remains still elevated. history of presenting illness: Date of Service: 09/26/22 Chief Complaint: Chest pain ?46-year-old gentleman with past medical history significant for hypertension, hyperlipidemia, stop taking antihypertensive 3 months ago and has not been on statins for a long time presented to [facility] emergency room due to midsternal chest discomfort that started at 01:00 while he was playing video games with radiation of pain towards the neck,and left arm numbness, he describes pain as heaviness and tightness associated with diaphoresis, no palpitations, no shortness of breath, as per patient he has been having intermittent chest discomfort for last 2-3 weeks lasting for 10 minutes usually occurring with exertion like walking up stairs or lifting heavy object resolved by itself, today patient took heartburn medication without any relief in symptoms therefore presented to emergency room,, in the emergency room patient initial EKG showed some ST sagging in lateral leads, initial troponin was negative however repeat troponin? 284, chest x-ray showed no acute abnormality. due to patient's multiple coronary artery disease risk factors for hypertension, hyperlipidemia, family history, ex-smoker and with? presentation consistent with acute coronary syndrome, patient treated in the emergency room with IV heparin, metoprolol, Lipitor and nitro paste, chest pain resolved in the ED after use of aspirin and nitro sublingual and now being admitted to [facility]? for continued monitoring and treatment and possible discharge to [facility] for cardiac catheterization. hospital course: 46-year-old gentleman with past medical history significant for hypertension, hyperlipidemia noncompliant with medications presented to [facility] with chest pain diagnosed to have acute coronary syndrome with elevated troponin mild initial ST changes on EKG that? improved on subsequent EKGs patient receive IV heparin, aspirin, metoprolol and Lipitor in the ED and now being admitted to telemetry. ?Acute non ST elevation MO, admitted to telemetry unit, treated with IV heparin/Lipitor 80 mg , metoprolol , aspirin 81 mg daily and nitropaste, tele monitor showed no arrhythmia, had a few sec. episode of chest pain this morning, repeat EKG showed no acute ischemic changes, developed headache due to nitro paste, therefore nitropaste discontinued, and placed on amlodipine , echo showed EF 45-50% grade 1 mild diastolic dysfunction and basal inferior, mid inferior and basal inferior septal hypokinesis, patient followed closely by Cardiology and is being discharged to [facility] for cardiac catheterization. ? ?hypertension ?on metoprolol 25 mg b.i.d. and Norvasc 5 mg by mouth daily. recommend to add losartan if noted to have elevated blood pressures. ?hyperlipidemia/ hypertriglyceridemia ?elevated triglyceride 447,low HDL of 25 , on Lipitor 80 mg at bedtime, check directed LDL level. Time Spent with Patient Time attestation: Total time managing care of this patient today ____ minutes. Discharge coordination time: Greater than 30 minutes Quality: Safe Use of Opioids Does Pt have an Active Cancer Diagnosis on the Problem List?: No Quality: Stroke Does the patient have a stroke diagnosis?: No Physical Exam Vital Signs: Vital Signs: Last Vital Signs Temp 97.7 F 09/27/22 11:17 Pulse 65 09/27/22 11:17 Resp 16 09/27/22 11:17 BP 128/74 09/27/22 11:17 Pulse Ox 96 09/27/22 11:17 O2 Del Method Room Air 09/27/22 11:17 BMI result Body Mass Index 31.7 Const: Other: General ? Awake al ert x3, resting co mfortably in no ac fabien distress. HEEN T PERRLA anicteric sclera Neck is patiño pple no JVD. CVS? regular rate rhyth m, Respiratory felipa gs clear to auscul tation, no respira tory distress, no wheeze, no rhonchi . Gastrointestinal abdomen soft, non tender, bowel kingsley nds audible, no gu arding , no rigidi ty. Extremities no edema. Neuro non thefocal Skin no rash psych appropr iate affect DS: Data Data Completed and Pending Labs on day of discharge: Laboratory Results - last 24 hr 09/26/22 09/26/22 09/26/22 13:42 20:55 21:00 WBC RBC Hgb Hct MCV MCH MCHC RDW Plt Count MPV Absolute Nucleated RBC Nucleated RBC % (auto) PT INR aPTT Heparin Protocol 49.9 L 136.2 H* D COVID-19 ([facility]) Negative COVID-19 Clin Com See Note 09/27/22 09/27/22 09/27/22 00:15 06:15 06:15 WBC 10.2 RBC 5.02 Hgb 15.2 Hct 43.4 MCV 86.5 MCH 30.3 MCHC 35.0 RDW 13.3 Plt Count 254 MPV 11.4 Absolute Nucleated RBC 0.000 Nucleated RBC % (auto) 0.0 PT 13.4 H INR 1.2 H aPTT Heparin Protocol 83.4 H D COVID-19 ([facility]) COVID-19 Clin Com 09/27/22 09/27/22 06:15 11:45 WBC RBC Hgb Hct MCV MCH MCHC RDW Plt Count MPV Absolute Nucleated RBC Nucleated RBC % (auto) PT INR aPTT Heparin Protocol 82.3 H 66.9 COVID-19 ([facility]) COVID-19 Clin Com Discharge Plan Discharge Anticipated Discharge Date/Time: 09/27/22 12:24 Patient Disposition: Xfer Acute Care Hospital Discharge Diagnosis: acute coronary syndrome Referrals: [facility] [Outside] - 1 Week Jennifer Evans NP [Primary Care Provider] - 1 Week Discharge Medications: New atorvastatin 80 mg Tablet 80 mg PO BEDTIME Qty: 30 0RF acetaminophen 325 mg Tablet 650 mg PO Q6H PRN (Reason: Pain, Mild (Pain Scale 1-3)) Qty: 30 0RF amlodipine 5 mg Tablet 5 mg PO DAILY Qty: 30 0RF Protocol: Hold for SBP< HOLD for SBP < : 90 aspirin 81 mg Tablet,Delayed Release (Dr/Ec) 81 mg PO DAILY Qty: 30 0RF nitroglycerin [Nitrostat] 0.4 mg Tablet, Sublingual 0.4 mg sublingual Q5MX3 PRN (Reason: Chest Pain) Qty: 30 0RF heparin (porcine) 5,000 unit/mL Solution 8,000 unit IVPUSH PROTOCOL BOLUS PRN (Reason: 80 Unit/Kg - Heparin Protocol) Qty: 30 0RF heparin (porcine) 5,000 unit/mL Solution 4,000 unit IVPUSH PROTOCOL BOLUS PRN (Reason: 40 Unit/Kg - Heparin Protocol) Qty: 30 0RF heparin(porcine) in 0.45% NaCl 25,000 unit/250 mL Parenteral Solution 25,000 unit continuous IV infusion .Q0M Qty: 30 0RF metoprolol tartrate 25 mg Tablet 25 mg PO BID Qty: 30 0RF Protocol: Hold for SBP/HR < HOLD for SBP < : 90 HOLD for HR < : 60 Discontinued ibuprofen [Motrin] 400 mg Tablet 400 mg PO Q8H PRN (Reason: Pain) Discharge Orders: Discharge Order (Routine); Ordered 09/27/22 Ordered By: Khalif Jansen Diet: Low fat, low cholesterol Activity on Discharge: bedrest Stand Alone Forms: Patient Portal Discharge page Care Plan Goals: acute coronary syndrome being discharged to [facility] for cardiac catheterization continue IV heparin, aspirin, atorvastatin, metoprolol and Norvasc Health Concerns: multiple coronary artery disease risk factors, former smoker, history of hypertension, hyperlipidemia and family history. Plan of Treatment: follow-up with primary care physician and Cardiology Assessment: as above
--- NOTE | 2022-09-27 12:58 | MHC.CM.PN ---
Patient will be dc/transferred to [facility] for cardiac cath.
[2022-09-27] MEDS: amLODIPine Besylate 5 MG TABLET PO (13:18)
[2022-09-27 15:42] VITALS: BP 137/81; PULSE 89; RESP 18; TEMP 37.1; O2SAT 98
== END 2022-09-27 17:31 | disposition short-term general hospital (02) | DRG 190 ==
LOC: HO.ED 07:06 → HO.EDOVER 11:17 → HO.IMC 15:33
PROVIDERS: Internal Medicine; Admitting Provider Hospitalist; Emergency Provider Emergency Medicine Emergency Medical Services; PCP Nurse Practitioner Primary Care; Visit Provider Hospitalist
DX: I21.4 Non-ST elevation (NSTEMI) myocardial infarction (principal); E78.2 Mixed hyperlipidemia; I10 Essential (primary) hypertension; T46.4X6A Underdosing of angiotensin-converting-enzyme inhibitors, initial encounter; Z91.128 Patient's intentional underdosing of medication regimen for other reason; Z20.822 Contact with and (suspected) exposure to COVID-19; Z79.82 Long term (current) use of aspirin; Z79.899 Other long term (current) drug therapy
CPT/HCPCS: 36415; 71045; 80048; 80061; 84484; 85025; 85027; 85610; 85730; 87635; 93005; 93306; 99285; J1643; Q9957

== ENCOUNTER 2022-10-23 14:19 | Outpatient (AMB) | payer MEDICAID, SELFPAY ==
--- NOTE | 2022-10-23 14:36 | MHC.OFFVIS ---
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 Allergies No Known Allergies Allergy (Verified 10/23/22 14:47) Medication List - Last Reconciled 10/23/22 by CLARE Orozco amlodipine 5 mg See Protocol PO DAILY aspirin 81 mg PO DAILY atorvastatin 80 mg PO BEDTIME metoprolol tartrate 25 mg See Protocol PO BID nitroglycerin (Nitrostat) 0.4 mg sublingual Q5MX3 PRN HPI [facility] FU S/P CARDIAC CATH (NEEDED WED.) HPI Details Adam is a 47-year-old male with past medical history of hypertension, hyperlipidemia who was having chest discomfort on 09/26 and presented to [facility] for evaluation where he ruled in for ACS. He was started on appropriate medical management and underwent an echocardiogram showing mildly reduced EF and regional wall motion abnormality. He was transferred to [facility] for cardiac catheterization and had stent placement. He now presents for follow-up. today he reports he has been feeling much better since his procedure. He has not had any recurrent chest or left arm discomfort. He denies shortness of breath, palpitations, dizziness, presyncope, syncope, PND, orthopnea or edema. Right radial catheterization site is feeling well. He has been taking medications as directed. No bleeding issues reported. He starts cardiac rehab at [facility] next week. [facility] Medical History (Updated 10/23/22 @ 16:07 by CLARE Orozco) CAD (coronary atherosclerotic disease) HTN (hypertension) Surgical History S/P cardiac cath Social History Household Members: Spouse Housing: House Do you presently have visiting nurse or other home services: No Alcohol intake: never Patient Tobacco Use Status: Never used Tobacco Tobacco use type: Cigarette Second Hand Smoke Exposure: No service: No Review of Systems Const All systems reviewed & are unremarkable except as noted in HPI and below ENT Reports dizziness Card Denies chest pain, Denies chest pain at rest, Denies chest pain with activity, Denies rapid heart rate, Denies pedal edema, Denies edema, Denies leg edema, Denies lightheadedness, Denies palpitations, Denies dyspnea, Denies dyspnea on exertion and Denies orthopnea Resp Denies cough, Denies dyspnea and Denies dyspnea on exertion GI Denies hematochezia and Denies change in stool character Musc Denies abnormal gait, Reports limited range of motion, Reports muscle cramps, Denies muscle weakness, Denies numbness, Denies radiating pain into limb, Denies stiffness and Denies tingling Neuro Denies abnormal gait, Reports dizziness, Denies numbness and Denies tingling Endo Denies palpitations Physical Exam Vital Signs: Last Vital Signs Pulse 72 10/23/22 14:37 BP 140/80 H 10/23/22 14:37 BMI result Body Mass Index 30.0 Const General: cooperative, healthy appearing, comfortable and no acute distress Orientation/consciousness: patient oriented x3 Neck Neck: Yes normal visual inspection and Yes no JVD Resp Effort & Inspection: normal respiratory effort Auscultation: clear to auscultation bilaterally, no crackles, no rales, no rhonchi and no wheezes Cardio Jugular venous distension: no JVD Rate: regular rate Rhythm: regular rhythm Heart sounds: S1 normal heart sound present, S2 normal heart sound present, no murmurs and no rubs Neuro General: patient oriented x3 Extrem Other: right radial cath site well healed General: Yes normal to inspection Psych Appearance: grossly normal Mental Status: mental status grossly normal Speech and movement: Normal speech and movement present Office Procedures EKG Details: Today, read by me, SR, minimal voltage criteria for LVH, rate 72, QTc 433ms [id number], Complete Assessment & Plan Assessment & Plan (1) Acute non-ST elevation myocardial infarction (NSTEMI): Code(s): I21.4 - Non-ST elevation (NSTEMI) myocardial infarction Plan: [facility] admission 09/26/2022 with chest pain, ruled in for ACS. Echocardiogram showed EF 45-50%, basal inferior, mid inferior, basal inferior septal hypokinesis, grade 1 diastolic dysfunction. He was started on appropriate medical management and transferred to [facility] for cardiac catheterization on 09/29/2022 showing severe 1st OM stenosis and NELLA placed, residual proximal RCA 65% stenosis and distal RCA 70% stenosis. today he is reporting no recurrent anginal sounding symptoms. He starts cardiac rehab next week. An EKG was done today showing normal sinus rhythm, minimal voltage criteria for LVH, rate 72, QTc 433 milliseconds. He is on aspirin indefinitely. He will be on Brilinta uninterrupted for at least 1 year. He will continue on atorvastatin high dose, metoprolol, amlodipine. Ongoing risk factor modification with LDL goal less than 70, ideal blood pressure goal less than 130/86. Catheterization note indicates that if he does have recurrent symptoms then PCI to the RCA will be considered. . Signs and symptoms of angina discussed. Emergency care if needed for any recurrent symptoms. Cardiology follow-up in 3 months, sooner if needed. (2) S/P cardiac cath: Comment: 09/29/2022, left main normal, 1st diagonal mid 50% stenosis, distal LAD 40% stenosis, om 270% stenosis, 1st OM 95% stenosis, RUKHSANA 3 flow moderate risk, RCA proximal 65% stenosis, distal RCA 70% stenosis RUKHSANA 3 flow, good runoff. drug-eluting stent placed to the OM 1, kissing balloon inflation OM1 and OM2 bifurcation if recurrent symptoms recommend PCI to RCA Code(s): Z98.890 - Other specified postprocedural states (3) CAD (coronary atherosclerotic disease): Code(s): I25.10 - Atherosclerotic heart disease of [place] coronary artery without angina pectoris (4) Hyperlipidemia: Code(s): E78.5 - Hyperlipidemia, unspecified Plan: LDL goal less than 70. Plan for fasting lipids, LFT at next visit. (5) HTN (hypertension): Code(s): I10 - Essential (primary) hypertension Plan: near goal at present. will be checked in cardiac rehab as well. Coding Level of Care Code Est Pt Level 4 (35947) Diagnoses Acute non-ST elevation myocardial infarction (NSTEMI) I21.4 S/P cardiac cath Z98.890 CAD (coronary atherosclerotic disease) I25.10 Hyperlipidemia E78.5 HTN (hypertension) I10 CPT Codes EKG - CPT: [id number], Complete ([id number]) Time Spent (min) 28 Comment chart review, document, interview, assess
[2022-10-23 14:37] VITALS: BP 136/80; PULSE 72
== END 2022-10-23 15:09 | disposition home or self-care (01) ==
PROVIDERS: PCP Nurse Practitioner Primary Care; Visit Provider Nurse Practitioner Family
DX: I21.4 Non-ST elevation (NSTEMI) myocardial infarction (principal); Z98.890 Other specified postprocedural states; I25.10 Atherosclerotic heart disease of native coronary artery without angina pectoris; E78.5 Hyperlipidemia, unspecified; I10 Essential (primary) hypertension
CPT/HCPCS: 93010; 99214

== ENCOUNTER → 2022-10-23 14:19 | Outpatient (BNVA) | payer MEDICAID, SELFPAY | PROVIDERS: PCP Nurse Practitioner Primary Care; Visit Provider Nurse Practitioner Family | DX: I25.2 Old myocardial infarction (principal); I25.10 Atherosclerotic heart disease of native coronary artery without angina pectoris; I10 Essential (primary) hypertension; E78.5 Hyperlipidemia, unspecified; Z98.890 Other specified postprocedural states | CPT/HCPCS: 93005; 99214 ==

== ENCOUNTER 2023-02-12 10:54 | Outpatient (AMB) | payer MEDICAID, SELFPAY ==
[2023-02-12 10:57] VITALS: BP 130/78; PULSE 67; BMI 27.1
--- NOTE | 2023-02-12 10:57 | MHC.OFFVIS ---
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 He has been doing very well overall. With his usual activity denies any significant cardiac symptoms including chest pain. Taking all his medications. One time he forgot his Brilinta but otherwise has been very compliant. No recent lipid panel. Blood pressure is generally well controlled as per him. Denies any prolonged palpitation irregular heartbeat. Denies any heart failure symptoms. FORMERLY [facility], [facility]–1983 Medical History (Updated 02/12/23 @ 11:56 by Jose Aparicio MD) Acute non-ST elevation myocardial infarction (NSTEMI) CAD (coronary atherosclerotic disease) HTN (hypertension) Surgical History S/P cardiac cath Social History Household Members: Spouse Housing: House Do you presently have visiting nurse or other home services: No Alcohol intake: never Patient Tobacco Use Status: Never used Tobacco Tobacco use type: Cigarette Second Hand Smoke Exposure: No service: No Review of Systems Const Denies weakness ENT Denies dizziness Card Denies chest pain, Denies chest pain with activity, Denies syncope, Denies rapid heart rate, Denies pedal edema, Denies edema, Denies leg edema, Denies lightheadedness, Denies palpitations, Denies dyspnea, Denies dyspnea on exertion and Denies orthopnea Resp Denies cough, Denies dyspnea and Denies dyspnea on exertion GI Denies hematochezia and Denies change in stool character Musc Denies abnormal gait, Denies muscle cramps, Denies muscle weakness, Denies numbness, Denies radiating pain into limb and Denies tingling Neuro Denies abnormal gait, Denies dizziness, Denies syncope, Denies numbness, Denies tingling and Denies weakness Endo Denies palpitations Physical Exam Vital Signs: Last Vital Signs Pulse 67 02/12/23 10:57 BP 130/78 02/12/23 10:57 BMI result Body Mass Index 27.1 Const General: cooperative, healthy appearing, comfortable and no acute distress Orientation/consciousness: patient oriented x3 Neck Neck: Yes normal visual inspection and Yes no JVD Resp Effort & Inspection: normal respiratory effort Auscultation: clear to auscultation bilaterally, no crackles, no rales, no rhonchi and no wheezes Cardio Jugular venous distension: no JVD Rate: regular rate Rhythm: regular rhythm Heart sounds: S1 normal heart sound present, S2 normal heart sound present, no murmurs and no rubs Neuro General: patient oriented x3 Extrem Other: right radial cath site well healed General: Yes normal to inspection Psych Appearance: grossly normal Mental Status: mental status grossly normal Speech and movement: Normal speech and movement present Assessment & Plan Assessment & Plan (1) CAD (coronary atherosclerotic disease): Code(s): I25.10 - Atherosclerotic heart disease of [place] coronary artery without angina pectoris Plan: CAD status post acute coronary syndrome in September status post drug-eluting stent to bifurcation of OM1 and OM2. He has diffuse coronary disease and a segment including RCA although with no current symptoms of angina. Under long discussion about diffuse nature of coronary disease in his case and at his age. Continue aggressive medical therapy. Importance of dual antiplatelet therapy given the nature of drug-eluting stent was discussed. May consider continuing prolonged dual antiplatelet therapy for 30 months. Blood pressure is well optimized see below. Continue high-intensity statin therapy. Advised lipid panel near future with target goal LDL closer to 60 mg/dL and triglycerides less than 200 mg/dL. 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 (2) HTN (hypertension): Code(s): I10 - Essential (primary) hypertension Plan: Hypertension which is currently well optimized on therapy with metoprolol and amlodipine. Continue the same. Advised importance of blood pressure control. Understands. Advised to monitor blood pressure at home maintain a log. Goal blood pressure less than 130/84. Low-salt diet was discussed. Advised to maintain heart healthy lifestyle. Will follow up in the clinic in 6 months time, sooner p.r.n.. Thank you for allowing me to partake in his care Orders: Orders Lipid Panel Today I25.10 - Atherosclerotic heart disease of [place] coronary artery without angina pectoris CA stress test Today I25.10 - Atherosclerotic heart disease of [place] coronary artery without angina pectoris NM cardiolite stress test 2 Weeks I25.10 - Atherosclerotic heart disease of [place] coronary artery without angina pectoris, R07.9 - Chest pain, unspecified Coding Level of Care Code Est Pt Level 4 (69862) Diagnoses CAD (coronary atherosclerotic disease) I25.10 HTN (hypertension) I10
== END 2023-02-12 11:14 | disposition home or self-care (01) ==
PROVIDERS: PCP Nurse Practitioner Primary Care; Visit Provider Internal Medicine Cardiovascular Disease
DX: I25.10 Atherosclerotic heart disease of native coronary artery without angina pectoris (principal); I10 Essential (primary) hypertension
CPT/HCPCS: 99214

== ENCOUNTER → 2023-02-12 10:54 | Outpatient (BNVA) | payer MEDICAID, SELFPAY | PROVIDERS: PCP Nurse Practitioner Primary Care; Visit Provider Internal Medicine Cardiovascular Disease | DX: I25.10 Atherosclerotic heart disease of native coronary artery without angina pectoris (principal); I10 Essential (primary) hypertension | CPT/HCPCS: 99212 ==

== ENCOUNTER → 2023-04-02 08:18 | Outpatient (REF) | payer MEDICAID, SELFPAY ==
--- NOTE | 2023-04-02 08:20 | CA_ITS ---
Acquisition Time: 2023-04-02 08:31:06 Total Exercise Time: 00:10:08 Test Indications: CAD POST STENT Medications: AMLODIPINE ASA ATORVASTATIN METOPROLOL BRILLINTA Protocol: PAIGE Max HR: 150 BPM 87% of Pred: 171 BPM Max BP: 158/088 mmHG Max Work Load: 11.9 METS Exercise stress test with exercise 10 min 8 sec of Paige protocol protocol, achieving 85% MPHR, without anginal symptoms, with isolated PACs, PVCs rare ventricular cuplet, with normotensive response to exercise, with EKG changes meeting criteria for ischemia: inferolateral leads with gradual improvement back to baseline in recovery. Nuclear images pending. Test reviewed with Dr Aparicio Referred By: Jose Aparicio Overread By: IVAN FELDMAN
== END ==
LOC: HO.CARD 08:18
PROVIDERS: PCP Nurse Practitioner Primary Care; Visit Provider Internal Medicine Cardiovascular Disease
DX: R07.9 Chest pain, unspecified (principal); I25.10 Atherosclerotic heart disease of native coronary artery without angina pectoris
CPT/HCPCS: 78452; 93017; A9500

== ENCOUNTER → 2023-04-02 08:20 | Outpatient (BNV) | payer MEDICAID, SELFPAY | PROVIDERS: PCP Nurse Practitioner Primary Care; Visit Provider Nurse Practitioner Family | DX: R07.9 Chest pain, unspecified (principal) | CPT/HCPCS: 78452; 93016; 93018 ==

== ENCOUNTER 2023-04-23 12:17 | Outpatient (REF) | payer MEDICAID, SELFPAY ==
[2023-04-23 13:17] LABS: Appearance Urine Clear; Color Urine Yellow; Glucose Urine UA Negative (Negative); Leukocyte Esterase Urine Negative (Negative); Nitrite Urine Negative (Negative); Urine Blood Negative (Negative); Urine Ketones Negative (Negative); Urine Protein Negative (Neg-Trace)
[2023-04-23 13:19] LABS: Bacteria Urine None Seen (None Seen); Hyaline Casts Urine 0-2 /LPF (0-2); RBC Urine 0-2 /HPF (0-2); Squamous Epithelial Cell Urine 0-2 /HPF (0-2); WBC Urine 0-5 /HPF (0-5)
[2023-04-23 13:56] LABS: Appearance Urine Clear; Color Urine Yellow; Glucose Urine UA Negative (Negative); Leukocyte Esterase Urine Negative (Negative); Nitrite Urine Negative (Negative); Urine Blood Negative (Negative); Urine Ketones Negative (Negative); Urine Protein Negative (Neg-Trace)
[2023-04-23 13:59] LABS: Bacteria Urine None Seen (None Seen); Hyaline Casts Urine 0-2 /LPF (0-2); RBC Urine 0-2 /HPF (0-2); Squamous Epithelial Cell Urine 0-2 /HPF (0-2); WBC Urine 0-5 /HPF (0-5)
[2023-04-23 14:15] LABS: Estimated Average Glucose 114 mg/dL; Hemoglobin A1c % 5.6 % (<6.0)
[2023-04-23 14:32] LABS: Cholesterol 145 mg/dL (<200); HDL Cholesterol 32 mg/dL (>40); LDL Cholesterol Calculated 83 mg/dL (<100); Triglycerides 151 mg/dL (<150)
[2023-04-23 14:49] LABS: Creatinine Urine 144.95 mg/dL; Microalbum/Creatinine Ratio Ur 6.8 ug/mg cr (<30)
[2023-04-23 14:51] LABS: TSH reflex Free T4 1.12 uIU/mL (0.32-4.0)
[2023-04-29 07:38] LABS: HCV Log PCR <1.18 NOT DETECTED Log IU/mL (NOT DETECTED); HepC Viral Load <15 NOT DETECTED IU/mL (NOT DETECTED)
[2023-04-30 15:54] LABS: Testosterone, Free 98.5 pg/mL (35.0-155.0); Testosterone, Total 412 ng/dL (250-1100)
== END 2023-04-23 12:18 | disposition home or self-care (01) ==
LOC: HO.HHCL 12:17
PROVIDERS: Visit Provider Nurse Practitioner Primary Care
DX: N20.0 Calculus of kidney (principal); I10 Essential (primary) hypertension; R76.8 Other specified abnormal immunological findings in serum; R73.9 Hyperglycemia, unspecified; I25.10 Atherosclerotic heart disease of native coronary artery without angina pectoris; R68.82 Decreased libido
CPT/HCPCS: 36415; 80061; 81001; 82043; 82570; 83036; 84402; 84403; 84443; 87522

== ENCOUNTER 2023-06-04 09:56 | Outpatient (AMB) | payer MEDICAID, SELFPAY ==
--- NOTE | 2023-06-04 10:10 | A.OFFVIS_ITS ---
Intake Intake Visit Reasons: kidney stones/ erectile dysfunction Intake Note: NEW Patient presents today to established treatment for Kidney Stones & Erectile Dysfunction: Meds- None Allergies to Antibiotic- No Known Allergies Blood Thinner- Aspirin Process Assistant Required: No Accompanied by: Self / Same As Patient Allergies No Known Allergies Allergy (Verified 06/04/23 10:11) HPI HPI Comments History of Present Illness Details Adam is here for evaluation due to erectile dysfunction and kidney stones. The patient states since he was young he noticed that he problems having an erection. The patient states he has have children he states that he has used a ring at base of his penis to assist in keeping the penis erect. Comorbidity coronary artery disease I have discussed with him the the physiology of the erection includes good blood flow to the penis as well as a venous outlet blockage to keep the penis engorged. Discussed for evaluation with Doppler the penis. Review of blood work free and total testosterone--within normal limits Adam states that he was in [place] and had an attack of left flank pain who was told that kidney stones he states this is the 1st episode. I have discussed at length diet modification to decrease risk of forming more kidney stones. I have discussed low oxalate diet and specific foods to avoid including certain green leafy vegetables, chocalate, nuts, tea, beets, rubarb; low sodium, decreased use of animal protein and the importance of hydration drinking up to 2-2.5 liters of fluids and use of adding lemon to water to increase citrate in the diet. A pamphlet is also provided today. 06/04/2023--plan Doppler ultrasound for penis blood flow Cialis 5 mg daily 24 hour urine collection Diet modification discussed CT stone protocol [facility] Medical History (Updated 06/04/23 @ 11:11 by Neno Gu MD) Erectile dysfunction Kidney stones Acute non-ST elevation myocardial infarction (NSTEMI) CAD (coronary atherosclerotic disease) HTN (hypertension) Surgical History S/P cardiac cath Family History Father No family history of cancer Mother Leukemia Social History Household Members: Spouse Housing: House Do you presently have visiting nurse or other home services: No Alcohol intake: never Patient Tobacco Use Status: Never used Tobacco Tobacco use type: Cigarette Second Hand Smoke Exposure: No service: No Review of Systems Const All systems reviewed & are unremarkable except as noted in HPI and below Reports no additional complaints Eyes Reports no additional complaints ENT Reports no additional complaints Card Denies dyspnea Resp Denies cough and Denies dyspnea GI Reports no additional complaints Musc Reports no additional complaints Skin/Breast Denies rash and Denies unusual bruising Neuro Reports no additional complaints Psych Reports no additional complaints Endo Reports no additional complaints Elliot/Lymph Reports no additional complaints Aller/Immun Reports no additional complaints Physical Exam Const General: healthy appearing, no acute distress and well developed Orientation/consciousness: patient oriented x3 HEENT Head: Yes normocephalic and Yes atraumatic Eyes Conjunctivae: conjunctivae normal Neck Neck: Yes normal visual inspection Chest Chest palpation & inspection: normal inspection of the chest Resp Effort & Inspection: normal respiratory effort Cardio Rate: regular rate GI Inspection: Yes normal to inspection Skin General skin exam: no rashes or lesions noted Neuro General: patient oriented x3 Extrem General: No pedal edema Psych Appearance: grossly normal Affect: normal affect Results AMB Urinalysis, Automated UA Leukoctes 0 Lyn/uL Last Edit by ASHLEY Escobar on 06/04/23 10:30 UA Nitrite Negative Last Edit by ASHLEY Escobar on 06/04/23 10:30 UA Urobilinogen 0.2 mg/dL Last Edit by ASHLEY Escobar on 06/04/23 10:3 0 UA Protein 15 mg/dL Last Edit by ASHLEY Escobar on 06/04/23 10:30 UA pH 5.5 Last Edit by ASHLEY Escobar on 06/04/23 10:30 UA Blood 0 Piero/uL Last Edit by ASHLEY Escobar on 06/04/23 10:30 UA Specific [place] 1.025 Last Edit by ASHLEY Escobar on 06/04/23 10: 30 UA Ketone Negative Last Edit by ASHLEY Escobar on 06/04/23 10:30 UA Bilirubin 0 mg/dL Last Edit by SEN EscobarA on 06/04/23 10:30 UA Glucose 0 mg/dL Last Edit by ASHLEY Escobar on 06/04/23 10:30 Results Reviewed Results Reviewed: Laboratory Last Values Urine pH (Auto) 5.5 06/04/23 10:29 Specific [place] (Auto) 1.025 06/04/23 10:29 Urine Protein (Auto) 15 mg/dL 06/04/23 10:29 Glucose (UA)(Auto) 0 mg/dL 06/04/23 10:29 Urine Ketones (Auto) Negative 06/04/23 10:29 Urine Blood (Auto) 0 Piero/uL 06/04/23 10:29 Urine Nitrite (Auto) Negative 06/04/23 10:29 Urine Bilirubin (Auto) 0 mg/dL 06/04/23 10:29 Urine Urobilinogen (Auto) 0.2 mg/dL 06/04/23 10:29 Leukocyte Esterase (Auto) 0 Lyn/uL 06/04/23 10:29 Assessment & Plan Assessment & Plan (1) Flank pain: Code(s): R10.9 - Unspecified abdominal pain (2) Kidney stones: Code(s): N20.0 - Calculus of kidney (3) Erectile disorder: Code(s): N52.9 - Male erectile dysfunction, unspecified Plan Doppler ultrasound for penis blood flow Cialis 5 mg daily 24 hour urine collection Diet modification discussed CT stone protocol Orders: Orders CT abdomen pelvis wo IV con 06/04/23 N20.0 - Calculus of kidney, R10.9 - Unspecified abdominal pain AMB Urinalysis Automated 06/04/23 Z13.9 - Encounter for screening, unspecified US duplex AV flow penis comp 06/04/23 I25.10 - Atherosclerotic heart disease of [place] coronary artery without angina pectoris, N52.9 - Male erectile dysf unction, unspecified Coding Level of Care Code New Pt Level 4 (66185) Diagnoses Flank pain R10.9 Kidney stones N20.0 Erectile disorder N52.9
== END 2023-06-04 11:28 | disposition home or self-care (01) ==
PROVIDERS: PCP Nurse Practitioner Primary Care; Visit Provider Urology
DX: R10.9 Unspecified abdominal pain (principal); N20.0 Calculus of kidney; N52.9 Male erectile dysfunction, unspecified
CPT/HCPCS: 99204

== ENCOUNTER → 2023-06-04 09:56 | Outpatient (BNVA) | payer MEDICAID, SELFPAY | PROVIDERS: PCP Nurse Practitioner Primary Care; Visit Provider Urology | DX: N20.0 Calculus of kidney (principal); N52.9 Male erectile dysfunction, unspecified; R10.9 Unspecified abdominal pain | CPT/HCPCS: 81003; 99202 ==

== ENCOUNTER 2023-06-17 10:52 | Emergency (ER) | payer MEDICAID, SELFPAY ==
--- NOTE | ~2023-06-17 | CT_ITS ---
EXAMINATION: CT ABDOMEN AND PELVIS WITHOUT CONTRAST CLINICAL INFORMATION: Left flank pain. COMPARISON: None available. TECHNIQUE: Multidetector volumetric imaging was performed from the superior aspect of the liver through the pubic symphysis. Sagittal and coronal reformatted images were obtained on the technologist's workstation. This CT examination was performed using dose optimization techniques as appropriate, variously including the following: *Automated exposure control *Adjustment of mA and/or kV according to patient size (this includes techniques or standardized protocols for targeted exams where dose is matched to indication/reason for exam; i.e. extremities or head) *Use of iterative reconstruction technique DLP: 600 mGy-cm FINDINGS: LUNG BASES: The visualized lung bases are unremarkable. LIVER, GALLBLADDER, AND BILIARY TREE: The noncontrast liver is enlarged and decreased in attenuation. No biliary ductal dilatation is present. The gallbladder is unremarkable with no evidence of radiopaque gallstones, gallbladder wall thickening, or obvious pericholecystic inflammatory changes. PANCREAS: Unremarkable. SPLEEN: Unremarkable. ADRENAL GLANDS: Unremarkable. KIDNEYS AND URETERS: The kidneys are normal in size, shape, and attenuation. 5 mm nonobstructing calculus in the midpole of the left kidney. No hydronephrosis. No perinephric stranding. BLADDER: Unremarkable. GASTROINTESTINAL TRACT: Small and large bowel loops are of normal caliber. No small bowel obstruction. Appendix is within normal limits. ABDOMINAL WALL: No significant hernia is appreciated. LYMPH NODES: No bulky lymphadenopathy. VASCULAR: Normal caliber abdominal aorta. PELVIC VISCERA: Unremarkable. OSSEOUS STRUCTURES: No destructive bone lesions. CT/CT abdomen pelvis wo IV con IMPRESSION: 5 mm nonobstructing left renal calculus. No hydronephrosis. Hepatomegaly and hepatic steatosis.
[2023-06-17 11:01] VITALS: BP 164/106; PULSE 78; RESP 18; TEMP 36.3; O2SAT 97
--- NOTE | 2023-06-17 11:04 | ED.MALEGU ---
HPI - Male Genitourinary General Chief complaint: Urogenital-Male Stated complaint: blood in urine back pain Time Seen by Provider: 06/17/23 15:33 Source: patient and RN notes reviewed Mode of arrival: ambulatory Limitations: no limitations History of Present Illness HPI Narrative: This is a 47-year-old male, with a history of kidney stones, presenting to the emergency department complaints of 1 episode of hematuria yesterday as well as some left-sided flank pain. Patient reports that 2 months ago he was seen in [place] due to left-sided flank pain he was diagnosed with a kidney stone. He states that he was referred to a urologist who he has not seeing until mid July. He states that yesterday he noticed red colored urine, similar to the collar he had 2 months ago when he had a kidney stone. He denies any fevers, chills, chest pain, shortness of breath, abdominal pain, nausea, vomiting or diarrhea. Denies taking any medications at home to treat his current symptoms. No dysuria, urinary frequency or urgency. No other complaints or concerns at this time. Duration: constant Relieving factors: none Exacerbating factors: none Related Data Home Medications Medication Instructions Recorded Confirmed ticagrelor 90 mg tablet (Brilinta) 90 mg PO BID 02/12/23 02/12/23 Previous Rx's Medication Instructions Recorded amlodipine 5 mg tablet 5 mg PO DAILY #30 tabs 09/27/22 aspirin 81 mg tablet,delayed 81 mg PO DAILY #30 tabs 09/27/22 release atorvastatin 80 mg tablet 80 mg PO BEDTIME #30 tabs 09/27/22 metoprolol tartrate 25 mg tablet 25 mg PO BID #30 tabs 09/27/22 nitroglycerin 0.4 mg sublingual 0.4 mg sublingual Q5MX3 PRN Chest 09/27/22 tablet (Nitrostat) Pain #30 tabs Allergies Allergy/AdvReac Type Severity Reaction Status Date / Time No Known Allergies Allergy Verified 06/04/23 10:11 Review of Systems Review of Systems: Yes all other systems are reviewed and are negative Constitutional: Constitutional: Reports as per [facility] Past Medical History Attestation statement: The following information was validated with the patient. Medical History Erectile dysfunction Kidney stones Acute non-ST elevation myocardial infarction (NSTEMI) CAD (coronary atherosclerotic disease) HTN (hypertension) Surgical History S/P cardiac cath Family History Family History Father No family history of cancer Mother Leukemia Social History Social History Household Members: Spouse Housing: House Do you presently have visiting nurse or other home services: No Alcohol intake: never Patient Tobacco Use Status: Never used Tobacco Tobacco use type: Cigarette Second Hand Smoke Exposure: No Advance Directives: No service: No Physical Exam Vital Signs: Vital Signs: Last Vital Signs Temp 97.4 F 06/17/23 11:01 Pulse 78 06/17/23 11:01 Resp 18 06/17/23 11:01 BP 164/106 H 06/17/23 11:01 Pulse Ox 97 06/17/23 11:01 O2 Del Method Room Air 06/17/23 11:01 BMI result Body Mass Index 30.0 Const: General: cooperative, comfortable and no acute distress Orientation/consciousness: patient oriented x3 Limitations: no limitations HEENT: Head: Yes normal to inspection, Yes normocephalic and Yes atraumatic Ears: hearing grossly normal bilaterally General nose exam: Normal external nose present Face and sinus: Yes normal facial exam Mouth: Normal oral and palatal mucosa present, oropharynx normal and moist mucous membranes Throat: Yes posterior oropharynx normal Eyes: General: appearance normal, both eyes and all related structures Eyelids: Yes eyelids normal Conjunctivae: conjunctivae normal Sclerae: sclerae normal Pupils: Equal, round and reactive pupils present EOM: EOMs intact bilaterally Neck: Neck: Yes normal visual inspection, Yes full ROM and Yes no lymphadenopathy Lymphatic: no lymphadenopathy noted Chest: Chest palpation & inspection: normal inspection of the chest Resp: Effort & Inspection: normal respiratory effort and able to speak in complete sentences Auscultation: clear to auscultation bilaterally, no crackles, no rales, no rhonchi and no wheezes Cardio: Rate: regular rate Rhythm: regular rhythm Heart sounds: S1 normal heart sound present and S2 normal heart sound present GI: Other: Abdomen is soft, nontender, nondistended Inspection: Yes normal to inspection : Other: No CVA tenderness Skin: General skin exam: no rashes or lesions noted Trauma: no lacerations or abrasions Wounds: no wounds Neuro: General: patient oriented x3 and moves all extremities Cranial nerves: Yes Equal, round and reactive pupils present Extrem: General: Yes normal to inspection Right upper extremity: normal to inspection Left upper extremity: normal to inspection Right lower extremity: normal to inspection Left lower extremity: normal to inspection Course Course Course Narrative: This is a rapid medical exam: Additional HPI, ROS, PE not included below will be deferred to primary provider. Patient is a 47-year-old male previously diagnosed with kidney stones in [place] presenting to the ED with report of hematuria and left flank pain. Denies fevers. Seeing urology here but not for another month. Plan: UA, labs, CT Medications Administered Generic Name Dose Route Start Last Admin Trade Name Freq PRN Reason Stop Dose Admin Sodium Chloride 1,000 mls @ 999 mls/hr 06/17/23 15:45 06/17/23 15:50 Ns IVCONT 06/17/23 16:45 Not Given .Q1H1M SONG Discontinued Medications Generic Name Dose Route Start Last Admin Trade Name Freq PRN Reason Stop Dose Admin Tamsulosin HCl 0.4 mg 06/17/23 15:40 06/17/23 15:49 Tamsulosin Hcl 0.4 Mg Capsule PO 06/17/23 15:41 Not Given ONCE ONE Medical Decision Making Medical Decision Making [facility] Narrative: This is a 47-year-old male, with a history of kidney stones, presenting to the emergency department for evaluation of hematuria and left-sided flank pain since yesterday. On arrival patient mildly hypertensive at 164/106. Patient has no CVA tenderness or abdominal pain. Differential diagnoses include hydronephrosis, nephrolithiasis, urinary tract infection, obstructive uropathy. Less likely urinary tract infection, bacteremia. Labs were performed, patient has no leukocytosis, stable H&H, chemistry within normal limits. Urine does appear to have blood and rbc's, no bacteria seen, does not appear to be infected. This case was reviewed by my attending physician, Dr. Smith, who reviewed CT imaging as CT imaging revealed 5 mm nonobstructing renal stone noted, no hydronephrosis noted. He reports that this just needs follow-up outpatient, does not need Flomax for IV fluids or any other testing. Patient's pain is well managed without any medications. Patient given return precautions. He understands agrees with plan. Patient stable for discharge Differential Diagnosis Differential Diagnoses: The differential diagnosis associated with the presentation includes See above Admission/Observation Consideration of admission/observation: Escalation of care including admission/observation considered Escalation of care including admission/observation considered however given workup today not warranted at this time. Lab Data MDM Lab Attestation statement: I reviewed the patient's lab results. My interpretation of the lab results that were performed today are as follows: No leukocytosis, H&H within normal limits, chemistry within normal limits, BUN 17, creatinine 0.94 no evidence of DIONI. Hematuria noted with large blood, and rbc's, no bacteria seen. No evidence of infection. 06/17/23 11:14 06/17/23 11:14 Labs: Lab Results 06/17/23 06/17/23 Range/Units 11:14 11:38 WBC 8.2 (4.8-10.8) X10*3/uL RBC 5.53 (4.60-5.80) X10*6/uL Hgb 16.3 (14.0-18.0) g/dl Hct 47.3 (42.0-52.0) % MCV 85.5 (80.0-98.0) fL MCH 29.5 (27.0-33.0) pg MCHC 34.5 (31.0-36.0) g/dl RDW 13.6 (11.0-16.0) % Plt Count 258 (160-400) X10*3/uL MPV 10.4 (9.4-12.4) fL Immature Gran % (Auto) 0.2 (0.0-0.4) % Neut % (Auto) 54.3 (45-73) % Lymph % (Auto) 33.1 (20-40) % Faulkner % (Auto) 6.7 (2-11) % Eos % (Auto) 5.5 H (0-4) % Baso % (Auto) 0.2 (0-2) % Lymph # (Auto) 2.7 (1.2-4.9) X10*3/uL [place] # (Auto) 0.6 (0.1-1.2) X10*3/uL Eos # (Auto) 0.5 H (0.0-0.4) X10*3/uL Baso # (Auto) 0.0 (0.0-0.2) X10*3/uL Abs Immat Gran (auto) 0.02 (0.00-0.03) X10*3/uL Absolute Neuts (auto) 4.5 (2.0-8.3) x10*3/uL Absolute Nucleated RBC 0.000 (0.0-0.012) X10*3/uL Nucleated RBC % (auto) 0.0 (0.0-0.2) /100WBC Sodium 139 (135-145) mmol/L Potassium 4.6 (3.3-5.1) mmol/L Chloride 105 (96-108) mmol/L Carbon Dioxide 26 (22-29) mmol/L Anion Gap 13 (12-20) BUN 17 H (9-16) mg/dL Creatinine 0.94 (0.5-1.4) mg/dL Estim Creat Clear Calc 109.9 Estimated GFR > 60 Random Glucose 109 (60-115) mg/dL Calcium 9.2 (8.4-10.2) mg/dL Total Bilirubin 0.6 (0.0-1.0) mg/dL AST 18 (5-37) U/L ALT 32 (0-40) U/L Alkaline Phosphatase 58 (39-117) U/L Total Protein 7.4 (6.5-8.0) g/dL Albumin 4.1 (3.5-5.0) g/dL Urine Color Yellow Urine Appearance Cloudy Urine pH 5.5 (5.0-9.0) Ur Specific [place] 1.020 (1.005-1.025) Urine Protein Negative (Neg-Trace) mg/dL Urine Glucose (UA) Negative (Negative) mg/dL Urine Ketones Negative (Negative) mg/dL Urine Blood Large (3+) H (Negative) Urine Nitrite Negative (Negative) Ur Leukocyte Esterase Negative (Negative) Urine RBC >20 H (0-2) /HPF Urine WBC 0-5 (0-5) /HPF Ur Squamous Epith Cells 0-2 (0-2) /HPF Urine Bacteria None Seen (None Seen) Hyaline Casts 0-2 (0-2) /LPF Independent Interpretation Interpretation: I reviewed the CT scan and agree with the radiology report. Radiology Impression Discussion of test interpretation with radiology: I have reviewed the radiologist's reading. Radiologist Impression: EXAMINATION: CT ABDOMEN AND PELVIS WITHOUT CONTRAST CLINICAL INFORMATION: Left flank pain. COMPARISON: None available. TECHNIQUE: Multidetector volumetric imaging was performed from the superior aspect of the liver through the pubic symphysis. Sagittal and coronal reformatted images were obtained on the technologist's workstation. This CT examination was performed using dose optimization techniques as appropriate, variously including the following: *Automated exposure control *Adjustment of mA and/or kV according to patient size (this includes techniques or standardized protocols for targeted exams where dose is matched to indication/reason for exam; i.e. extremities or head) *Use of iterative reconstruction technique DLP: 600 mGy-cm FINDINGS: LUNG BASES: The visualized lung bases are unremarkable. LIVER, GALLBLADDER, AND BILIARY TREE: The noncontrast liver is enlarged and decreased in attenuation. No biliary ductal dilatation is present. The gallbladder is unremarkable with no evidence of radiopaque gallstones, gallbladder wall thickening, or obvious pericholecystic inflammatory changes. PANCREAS: Unremarkable. SPLEEN: Unremarkable. ADRENAL GLANDS: Unremarkable. KIDNEYS AND URETERS: The kidneys are normal in size, shape, and attenuation. 5 mm nonobstructing calculus in the midpole of the left kidney. No hydronephrosis. No perinephric stranding. BLADDER: Unremarkable. GASTROINTESTINAL TRACT: Small and large bowel loops are of normal caliber. No small bowel obstruction. Appendix is within normal limits. ABDOMINAL WALL: No significant hernia is appreciated. LYMPH NODES: No bulky lymphadenopathy. VASCULAR: Normal caliber abdominal aorta. PELVIC VISCERA: Unremarkable. OSSEOUS STRUCTURES: No destructive bone lesions. CT/CT abdomen pelvis wo IV con IMPRESSION: 5 mm nonobstructing left renal calculus. No hydronephrosis. Hepatomegaly and hepatic steatosis. Dictated By: Niya Bolden MD Prescription Management I considered prescription management with: Pain Medication and Antibiotic I considered prescription management with pain medication however pain well managed, considered antibiotic however urine does not appear to be infected Discharge Plan Discharge Clinical Impression: Kidney stones, Hematuria Patient Disposition: Home, Self-Care Instructions: Kidney Stones (ED), Hematuria (ED), How to Strain Your Urine (ED) Additional Instructions: Your seen in the emergency department due to blood in your urine. Your CT of your abdomen does reveal a kidney stone within your kidney. This was reviewed and this is unlikely the cause of your symptoms however you may have already passed a kidney stone which has caused you to have some blood in your urine. Please drink plenty of fluids get plenty of rest. Call the urologist office today stating that you were seen in the emergency department for the symptoms. If any new or worsening symptoms occur including but not limited to worsening pain, nausea, vomiting, please return for re-evaluation. Prescriptions: No Action atorvastatin 80 mg Tablet 80 mg PO BEDTIME Qty: 30 0RF amlodipine 5 mg Tablet 5 mg PO DAILY Qty: 30 0RF Protocol: Hold for SBP< HOLD for SBP < : 90 aspirin 81 mg Tablet,Delayed Release (Dr/Ec) 81 mg PO DAILY Qty: 30 0RF nitroglycerin [Nitrostat] 0.4 mg Tablet, Sublingual 0.4 mg sublingual Q5MX3 PRN (Reason: Chest Pain) Qty: 30 0RF metoprolol tartrate 25 mg Tablet 25 mg PO BID Qty: 30 0RF Protocol: Hold for SBP/HR < HOLD for SBP < : 90 HOLD for HR < : 60 Brilinta 90 mg tablet 90 mg PO BID Referrals: [facility] [Provider Group]
[2023-06-17 11:21] LABS: MANUAL DIFF FLAG NO
[2023-06-17 11:22] LABS: Basophils Percent Auto 0.2 % (0-2); Eosinophils Absolute Auto 0.5 X10*3/uL (0.0-0.4); Eosinophils Percent Auto 5.5 % (0-4); Hematocrit 47.3 % (42.0-52.0); Hemoglobin 16.3 g/dl (14.0-18.0); Imm Gran Abs Auto 0.02 X10*3/uL (0.00-0.03); Imm Gran Pct Auto 0.2 % (0.0-0.4); Lymphocytes Absolute Auto 2.7 X10*3/uL (1.2-4.9); Lymphocytes Percent Auto 33.1 % (20-40); Mean Corpuscular HGB Conc 34.5 g/dl (31.0-36.0); Mean Corpuscular Hemoglobin 29.5 pg (27.0-33.0); Mean Corpuscular Volume 85.5 fL (80.0-98.0); Mean Platelet Volume 10.4 fL (9.4-12.4); Monocytes Absolute Auto 0.6 X10*3/uL (0.1-1.2); Monocytes Percent Auto 6.7 % (2-11); Neutrophils Absolute Auto 4.5 x10*3/uL (2.0-8.3); Neutrophils Percent Auto 54.3 % (45-73); Platelet Count 258 X10*3/uL (160-400); Red Blood Count 5.53 X10*6/uL (4.60-5.80); Red Cell Distribution Width 13.6 % (11.0-16.0); White Blood Count 8.2 X10*3/uL (4.8-10.8)
[2023-06-17 11:45] LABS: Alanine Aminotransferase 32 U/L (0-40); Albumin Level 4.1 g/dL (3.5-5.0); Alkaline Phosphatase 58 U/L (39-117); Anion Gap 13 (12-20); Aspartate Amino Transferase 18 U/L (5-37); Bilirubin Total 0.6 mg/dL (0.0-1.0); Blood Urea Nitrogen 17 mg/dL (9-16); Calcium 9.2 mg/dL (8.4-10.2); Carbon Dioxide 26 mmol/L (22-29); Chloride 105 mmol/L (96-108); Creatinine Clr Calc Pharmacy 109.9; Estimated Glomerular Filt Rate > 60; Glucose Random 109 mg/dL (60-115); Potassium 4.6 mmol/L (3.3-5.1); Sodium 139 mmol/L (135-145); Total Protein 7.4 g/dL (6.5-8.0)
[2023-06-17 11:46] LABS: Appearance Urine Cloudy; Color Urine Yellow; Glucose Urine UA Negative (Negative); Leukocyte Esterase Urine Negative (Negative); Nitrite Urine Negative (Negative); PH 5.5 (5.0-9.0); UMIC TRIGGER UACC YES; Urine Blood Large (3+) (Negative); Urine Ketones Negative (Negative); Urine Protein Negative (Neg-Trace)
[2023-06-17 11:48] LABS: Bacteria Urine None Seen (None Seen); Hyaline Casts Urine 0-2 /LPF (0-2); RBC Urine >20 /HPF (0-2); Squamous Epithelial Cell Urine 0-2 /HPF (0-2); WBC Urine 0-5 /HPF (0-5)
== END 2023-06-17 16:09 | disposition home or self-care (01) ==
PROVIDERS: Registered Nurse Emergency; Emergency Provider Emergency Medicine; PCP Nurse Practitioner Primary Care
DX: N20.0 Calculus of kidney (principal); R31.9 Hematuria, unspecified; M54.50 Low back pain, unspecified; R10.9 Unspecified abdominal pain; Z79.899 Other long term (current) drug therapy
CPT/HCPCS: 36415; 74176; 80053; 81001; 85025; 99282; 99284

== ENCOUNTER 2023-07-30 13:19 | Outpatient (REF) | payer MEDICAID, SELFPAY ==
--- NOTE | ~2023-07-30 | CT_ITS ---
EXAMINATION: CT ABDOMEN AND PELVIS WITHOUT CONTRAST CLINICAL INFORMATION: Abdominal pain. COMPARISON: CT abdomen and pelvis 06/17/2023. TECHNIQUE: Multidetector volumetric imaging was performed from the superior aspect of the liver through the pubic symphysis. Sagittal and coronal reformatted images were obtained on the technologist's workstation. This CT examination was performed using dose optimization techniques as appropriate, variously including the following: *Automated exposure control *Adjustment of mA and/or kV according to patient size (this includes techniques or standardized protocols for targeted exams where dose is matched to indication/reason for exam; i.e. extremities or head) *Use of iterative reconstruction technique DLP: 561 mGy-cm FINDINGS: LUNG BASES: The visualized lung bases are unremarkable. Some minimal basilar scarring is present. LIVER, GALLBLADDER, AND BILIARY TREE: The liver is enlarged measuring 18.8 cm in cephalocaudad dimension with decreased attenuation consistent with hepatic steatosis. Focal fatty sparing is seen around the gallbladder. No concerning solid focal hepatic lesion or biliary ductal dilatation is present. The gallbladder is unremarkable with no evidence of radiopaque gallstones, gallbladder wall thickening, or obvious pericholecystic inflammatory changes. PANCREAS: Unremarkable. SPLEEN: Unremarkable. ADRENAL GLANDS: Unremarkable. KIDNEYS AND URETERS: The kidneys are normal in size, shape, and attenuation. There is a 5 mm nonobstructing left upper pole renal calyceal calculus. No hydronephrosis, hydroureter, or additional calculi seen. No perinephric stranding. There is a 1.1 cm hyperattenuating 57 Hounsfield unit mass in the lower pole of the left kidney (3:40 and 5:74), unchanged from prior. BLADDER: Mild symmetric thickening of the bladder wall. GASTROINTESTINAL TRACT: The small and large bowel are unremarkable. The appendix is unremarkable. ABDOMINAL WALL: No significant hernia is appreciated. LYMPH NODES: No retroperitoneal lymphadenopathy. VASCULAR: Calcific atherosclerotic changes are present in the aorta and iliofemoral vessels. There is no evidence of an abdominal aortic aneurysm. PELVIC VISCERA: The prostate and seminal vesicles are unremarkable. OSSEOUS STRUCTURES: Unremarkable. CT/CT abdomen pelvis wo IV con IMPRESSION: 1. A cause for the patient's abdominal pain has not been found. 2. Incidental note made of an enlarged fatty liver, 5 mm nonobstructing left upper pole renal calculus and 1.1 cm hyperattenuating left lower pole renal mass. Renal ultrasound is recommended for further evaluation. I suspect this is a hemorrhagic cyst but confirmation is needed. Fleischner guidelines were followed.
== END 2023-07-30 13:20 | disposition home or self-care (01) ==
LOC: HO.CT 13:19
PROVIDERS: PCP Nurse Practitioner Primary Care; Visit Provider Urology
DX: R10.9 Unspecified abdominal pain (principal); N20.0 Calculus of kidney
CPT/HCPCS: 74176

== ENCOUNTER 2023-08-20 09:53 | Outpatient (AMB) | payer MEDICAID, SELFPAY ==
[2023-08-20 09:59] VITALS: BP 130/68; PULSE 78; BMI 30.7
--- NOTE | 2023-08-20 09:59 | A.OFFVIS_ITS ---
Vital Signs 08/20/23 09:59 Height 5 ft 10 in Weight 213 lb 13.574 oz BMI 30.7 BP 130/68 Blood Pressure Location Lt brachial Position Sitting Pulse 78 Intake Visit Reasons: 6 mth fu Allergies No Known Allergies Allergy (Verified 06/04/23 10:11) Medication List - Last Reconciled 08/20/23 by Socorro Roberts, FIELD ADMINISTRATOR-C amlodipine 5 mg See Protocol PO DAILY aspirin 81 mg PO DAILY atorvastatin 80 mg PO BEDTIME ezetimibe (Zetia) 10 mg PO DAILY metoprolol tartrate 25 mg See Protocol PO BID nitroglycerin (Nitrostat) 0.4 mg sublingual Q5MX3 PRN ticagrelor (Brilinta) 90 mg PO BID PFSH Medical History Erectile dysfunction Kidney stones Acute non-ST elevation myocardial infarction (NSTEMI) CAD (coronary atherosclerotic disease) HTN (hypertension) Surgical History S/P cardiac cath Family History Father No family history of cancer Mother Leukemia Social History Household Members: Spouse Housing: House Do you presently have visiting nurse or other home services: No Alcohol intake: never Patient Tobacco Use Status: Never used Tobacco Tobacco use type: Cigarette Second Hand Smoke Exposure: No service: No Review of Systems Const All systems reviewed & are unremarkable except as noted in HPI and below Denies weakness ENT Denies dizziness Card Denies chest pain, Denies chest pain with activity, Denies syncope, Denies rapid heart rate, Denies pedal edema, Denies edema, Denies leg edema, Denies lighth eadedness, Denies palpitations, Denies dyspnea, Denies dyspnea on exertion and Denies orthopnea Resp Denies cough, Denies dyspnea and Denies dyspnea on exertion GI Denies hematochezia and Denies change in stool character Musc Denies abnormal gait, Denies muscle cramps, Denies muscle weakness, Denies numbness, Denies radiating pain into limb and Denies tingling Neuro Denies abnormal gait, Denies dizziness, Denies syncope, Denies numbness, Denies tingling and Denies weakness Endo Denies palpitations Physical Exam Vital Signs: Last Vital Signs Pulse 78 08/20/23 09:59 BP 130/68 08/20/23 09:59 BMI result Body Mass Index 30.7 Const General: cooperative, healthy appearing, comfortable and no acute distress Orientation/consciousness: patient oriented x3 Neck Neck: Yes normal visual inspection and Yes no JVD Resp Effort & Inspection: normal respiratory effort Auscultation: clear to auscultation bilaterally, no crackles, no rales, no rhonchi and no wheezes Cardio Jugular venous distension: no JVD Rate: regular rate Rhythm: regular rhythm Heart sounds: S1 normal heart sound present, S2 normal heart sound present, no murmurs and no rubs Neuro General: patient oriented x3 Extrem General: Yes normal to inspection and No no pedal edema Psych Appearance: grossly normal Mental Status: mental status grossly normal Speech and movement: Normal speech and movement present Office Procedures EKG Details: Today, read by me, normal sinus rhythm, no acute ST or T-wave abnormalities, rate 73, QTC 409 milliseconds [id number], Complete Assessment & Plan Assessment & Plan (1) CAD (coronary atherosclerotic disease): Code(s): I25.10 - Atherosclerotic heart disease of [place] coronary artery without angina pectoris Category: Medical Plan: CAD status post acute coronary syndrome in September 2022 status post drug-eluting stent to bifurcation of OM1 and OM2. He has diffuse coronary disease and moderate proximal and distal RCA stenosis although with no current symptoms of angina. Last echo done 09/26/2022 showed EF 45-50%, grade 1 diastolic dysfunction, basal inferior, mid inferior and basal inferior septal segments hypokinetic. A nuclear stress test was done on 04/02/2023 with good exercise ca pacity, no anginal symptoms, EKGs positive for ischemia, normal myocardial perfusion imaging. Today he reports he has been doing well with no anginal symptoms. EKG today shows normal sinus rhythm with no acute ST or T-wave abnormalities, rate 73. Will have him continue aspirin indefinitely. Continue Brilinta 90 mg b.i.d. until 1 year post stent then will reduce down to 60 mg b.i.d. for a total of 30 months use. Blood pressure 130/68. Continue amlodipine, metoprolol. Labs done 04/23/2023 showed LDL 83. Will have him continue on high-dose atorvastatin and add Zetia 10 mg daily. Instructed on fasting lipids in 2-3 months, order placed. Continue physical activity as tolerated. Signs and symptoms of angina reviewed. Instructed to call if any concerning symptoms. Emergency care if ever needed. Cardiology office visit in 6 months. 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 Will update his echo to reassess EF prior to next visit. (2) HTN (hypertension): Code(s): I10 - Essential (primary) hypertension Category: Medical Plan: Normal range at present. Continue amlodipine and metoprolol. Reviewed low-salt diet. Plan Time spent on chart review, documentation, interview and assessment Orders: Orders Comprehensive Met. Panel 2 Months E78.5 - Hyperlipidemia, unspecified, I10 - Essential (primary) hypertension, I25.10 - Atherosclerotic heart disease of [place] coronary artery without angina pectoris Lipid Panel 2 Months I25.10 - Atherosclerotic heart disease of [place] coronary artery without angina pectoris CA echo transthoracic complete 5 Months I25.10 - Atherosclerotic heart disease of [place] coronary artery without angina pectoris Medications: New ezetimibe (Zetia) Cholesterol lowering agent. Take along with Atorvastatin 10 mg PO DAILY 90 tabs 3RF Coding Level of Care Code Est Pt Level 4 (68603) Diagnoses CAD (coronary atherosclerotic disease) I25.10 HTN (hypertension) I10 CPT Codes EKG - CPT: 60369-[id number], Complete ([id number]) Time Spent (min) 28
== END 2023-08-20 10:38 | disposition home or self-care (01) ==
PROVIDERS: PCP Nurse Practitioner Primary Care; Visit Provider Nurse Practitioner Family
DX: I25.10 Atherosclerotic heart disease of native coronary artery without angina pectoris (principal); I10 Essential (primary) hypertension
CPT/HCPCS: 93010; 99214

== ENCOUNTER → 2023-08-20 09:53 | Outpatient (BNVA) | payer MEDICAID, SELFPAY | PROVIDERS: PCP Nurse Practitioner Primary Care; Visit Provider Nurse Practitioner Family | DX: N20.0 Calculus of kidney (principal); N52.9 Male erectile dysfunction, unspecified; I25.10 Atherosclerotic heart disease of native coronary artery without angina pectoris; I10 Essential (primary) hypertension; Z79.82 Long term (current) use of aspirin; Z79.899 Other long term (current) drug therapy | CPT/HCPCS: 81003; 93005; 99212 ==

== ENCOUNTER 2023-08-20 12:52 | Outpatient (AMB) | payer MEDICAID, SELFPAY ==
--- NOTE | 2023-08-20 13:03 | MHC.OFFVIS ---
Intake Visit Reasons: 10w/US/CT/[facility] Intake Note: Patient presents today for a follow-up on CT Results: Meds- None Allergies to Antibiotic- No Known Allergies Blood Thinner- Aspirin Heel Reducer Required: No Accompanied by: Self / Same As Patient Allergies No Known Allergies Allergy (Verified 06/04/23 10:11) Medication List - Last Reconciled 08/20/23 by Neno Gu MD amlodipine 5 mg See Protocol PO DAILY aspirin 81 mg PO DAILY atorvastatin 80 mg PO BEDTIME ezetimibe (Zetia) 10 mg PO DAILY metoprolol tartrate 25 mg See Protocol PO BID nitroglycerin (Nitrostat) 0.4 mg sublingual Q5MX3 PRN tadalafil (Cialis) 5 mg PO DAILY ticagrelor (Brilinta) 90 mg PO BID HPI Comments Details: Adam is here for follow-up. He had a CT scan and 24 hour urine collection completed. I have reviewed the CT imaging results is a 5 mm stone in the left kidneys no hydronephrosis. Discussed 24 hour urine results: Total volume 2.1 L, Calcium 59 mg; Oxalate 55 mg, Sodium 196, Citrate 623 mg. Instructed on importance of fluid intake, Low oxalate diet, low sodium diet. I have discussed treatment options of shockwave lithotripsy versus conservative management by monitoring kidney stone at 5 mm with risk of the stone getting larger moving and causing obstruction or infection in the urinary tract. Discussed risks to include but not limited to, blood in the urine, bruising to the skin, kidney hematoma, possible need for another procedure if a stone fragment obstructs the ureter while passing, possible need to repeat procedure if stone is not completely fragmented. The patient agrees for left ESWL. He is on blood thinners and follows with cardiology due to coronary artery disease history. We will need cardiac clearance prior. In addition Cialis 5 mg was prescribed for daily use the patient has not had a penile Doppler testing done as yet and will need the appointment rescheduled. Review of chart: 06/04/23--Adam is here for evaluation due to erectile dysfunction and kidney stones. The patient states since he was young he noticed that he problems having an erection. The patient states he has have children he states that he has used a ring at base of his penis to assist in keeping the penis erect. Comorbidity coronary artery disease I have discussed with him the the physiology of the erection includes good blood flow to the penis as well as a venous outlet blockage to keep the penis engorged. Discussed for evaluation with Doppler the penis. Review of blood work free and total testosterone--within normal limits Adam states that he was in [place] and had an attack of left flank pain who was told that kidney stones he states this is the 1st episode. I have discussed at length diet modification to decrease risk of forming more kidney stones. I have discussed low oxalate diet and specific foods to avoid including certain green leafy vegetables, chocalate, nuts, tea, beets, rubarb; low sodium, decreased use of animal protein and the importance of hydration drinking up to 2-2.5 liters of fluids and use of adding lemon to water to increase citrate in the diet. A pamphlet is also provided today. -plan Doppler ultrasound for penis blood flow Cialis 5 mg daily. 24 hour urine collection. Diet modification discussed. CT stone protocol 08/20/2023--Plan--schedule left ESWL we will need cardiac clearance prior. Cialis 5 mg daily prescribed. The patient is prescribed nitroglycerin sublingual med states he has not needed to use this in over a year. Vitamin B6 100 mg prescribed. [facility] Medical History Erectile dysfunction Kidney stones Acute non-ST elevation myocardial infarction (NSTEMI) CAD (coronary atherosclerotic disease) HTN (hypertension) Surgical History S/P cardiac cath Family History Father No family history of cancer Mother Leukemia Social History Household Members: Spouse Housing: House Do you presently have visiting nurse or other home services: No Alcohol intake: never Patient Tobacco Use Status: Never used Tobacco Tobacco use type: Cigarette Second Hand Smoke Exposure: No service: No Review of Systems Const All systems reviewed & are unremarkable except as noted in HPI and below Reports no additional complaints Eyes Reports no additional complaints ENT Reports no additional complaints Card Reports no additional complaints Resp Reports no additional complaints GI Reports no additional complaints Reports as per HPI Musc Reports no additional complaints Skin/Breast Reports system reviewed and no additional complaints, except as documented Neuro Reports no additional complaints Psych Reports no additional complaints Endo Reports no additional complaints Elliot/Lymph Reports no additional complaints Aller/Immun Reports no additional complaints Results AMB Urinalysis, Automated UA Leukoctes 0 Lyn/uL Last Edit by ASHLEY Escobar on 08/20/23 13:23 UA Nitrite Negative Last Edit by Sondra Kim [facility] on 08/20/23 13:23 UA Urobilinogen 0.2 mg/dL Last Edit by Sondra Kim [facility] on 08/20/23 13:23 UA Protein 0 mg/dL Last Edit by Sondra Kim [facility] on 08/20/23 13:23 UA pH 5.5 Last Edit by Sondra Kim [facility] on 08/20/23 13:23 UA Blood 200 Piero/uL Last Edit by Sondra Kim [facility] on 08/20/23 13:23 3+ Sondra Kim 08/20/23 13:23 UA Specific [place] 1.025 Last Edit by Sondra Kim [facility] on 08/20/23 13:23 UA Ketone Negative Last Edit by Sondra Kim [facility] on 08/20/23 13:23 UA Bilirubin 0 mg/dL Last Edit by Sondra Kim [facility] on 08/20/23 13:23 UA Glucose 0 mg/dL Last Edit by Sondra Kim [facility] on 08/20/23 13:23 Results Reviewed Results Reviewed: Laboratory Last Values Urine pH (Auto) 5.5 08/20/23 13:17 Specific [place] (Auto) 1.025 08/20/23 13:17 Urine Protein (Auto) 0 mg/dL 08/20/23 13:17 Glucose (UA)(Auto) 0 mg/dL 08/20/23 13:17 Urine Ketones (Auto) Negative 08/20/23 13:17 Urine Blood (Auto) 200 Piero/uL 08/20/23 13:17 Urine Nitrite (Auto) Negative 08/20/23 13:17 Urine Bilirubin (Auto) 0 mg/dL 08/20/23 13:17 Urine Urobilinogen (Auto) 0.2 mg/dL 08/20/23 13:17 Leukocyte Esterase (Auto) 0 Lyn/uL 08/20/23 13:17 Assessment & Plan Assessment & Plan (1) CAD (coronary atherosclerotic disease): Code(s): I25.10 - Atherosclerotic heart disease of [place] coronary artery without angina pectoris Category: Medical (2) Kidney stones: Code(s): N20.0 - Calculus of kidney Category: Medical (3) Erectile disorder: Code(s): N52.9 - Male erectile dysfunction, unspecified Category: Medical Plan Plan--schedule left ESWL we will need cardiac clearance prior. Cialis 5 mg daily prescribed. The patient is prescribed nitroglycerin sublingual med states he has not needed to use this in over a year. Vitamin B6 100 mg prescribed. Orders: Orders AMB Urinalysis Automated Today Z13.9 - Encounter for screening, unspecified Medications: New pyridoxine (vitamin B6) 100 mg PO DAILY 90 tabs 3RF N20.0 - Calculus of kidney tadalafil (Cialis) [id number] [facility] [id number] Member [id number] 5 mg PO DAILY 30 tabs 1RF Patient Instructions: The patient had an opportunity to ask questions regarding treatment plan. The patient expressed understanding and agreement with the above treatment plan. The patient is aware they should contact our office by phone for worsening of their current condition or the appearance of new symptoms. Compliance is encouraged with any medications and followup testing that is ordered. It is a privilege to be allowed the opportunity to participate in the urologic care of your patient. If you have any questions or concerns regarding treatment for the above conditions please do not hesitate to contact me. The office telephone contact is [phone]. This note is constructed in part using voice recognition software. While every effort has been made to ensure accuracy product development assistant errors may have been included. Yours sincerely, Neno Gu MD Coding Level of Care Code Est Pt Level 4 (11907) Complex EM visit Add On G2211 Diagnoses CAD (coronary atherosclerotic disease) I25.10 Kidney stones N20.0 Erectile disorder N52.9
== END 2023-08-20 13:48 | disposition home or self-care (01) ==
PROVIDERS: PCP Nurse Practitioner Primary Care; Visit Provider Urology
DX: I25.10 Atherosclerotic heart disease of native coronary artery without angina pectoris (principal); N20.0 Calculus of kidney; N52.9 Male erectile dysfunction, unspecified; Z13.9 Encounter for screening, unspecified
CPT/HCPCS: 99214; G2211

== ENCOUNTER 2023-09-02 19:35 | Emergency (ER) | payer MEDICAID, SELFPAY ==
--- NOTE | ~2023-09-02 | CT_ITS ---
EXAMINATION: CT ABDOMEN AND PELVIS WITHOUT CONTRAST CLINICAL INFORMATION: Renal stone worsening left flank pain COMPARISON: CT abdomen from 07/30/2023 TECHNIQUE: Multidetector volumetric imaging was performed from the superior aspect of the liver through the pubic symphysis. Sagittal and coronal reformatted images were obtained on the technologist's workstation. This CT examination was performed using dose optimization techniques as appropriate, variously including the following: *Automated exposure control *Adjustment of mA and/or kV according to patient size (this includes techniques or standardized protocols for targeted exams where dose is matched to indication/reason for exam; i.e. extremities or head) *Use of iterative reconstruction technique DLP: 707 mGy-cm FINDINGS: LUNG BASES: Bibasilar atelectasis, left greater than right. No pneumothorax. No large pleural effusion. Coronary artery calcifications are noted. LIVER, GALLBLADDER, AND BILIARY TREE: Liver is enlarged measuring 19.8 cm. Decreased hepatic attenuation suggesting hepatic steatosis. No focal hepatic lesion or biliary ductal dilatation is present. The gallbladder is unremarkable with no evidence of radiopaque gallstones, gallbladder wall thickening, or obvious pericholecystic inflammatory changes. PANCREAS: Unremarkable. SPLEEN: Unremarkable. ADRENAL GLANDS: Unremarkable. KIDNEYS AND URETERS: Mild to moderate left-sided hydroureteronephrosis with periureteral nephric and periureteral stranding secondary to a 6 mm calculus along the left proximal ureter. Redemonstrated hyperattenuating focus in the left renal lower pole measuring 1.2 cm, stable. No right-sided nephrolithiasis or hydronephrosis. BLADDER: Mild urinary bladder wall thickening measuring 6 mm which may reflect element of cystitis versus bladder outlet obstruction. GASTROINTESTINAL TRACT: Small hiatal hernia. The small and large bowel are unremarkable. The appendix is unremarkable. ABDOMINAL WALL: Small hiatal hernia. LYMPH NODES: No enlarged lymph nodes per size criteria. VASCULAR: Abdominal aorta is nonaneurysmal. Atherosclerotic calcifications abdominal aorta is branches. PELVIC VISCERA: Prostate measures 3.7 cm with punctate calcifications. OSSEOUS STRUCTURES: Grade 1 anterolisthesis of L2 on L3, L3 on L4, L4 on L5. CT/CT abdomen pelvis wo IV con IMPRESSION: 1. Mild to moderate left-sided hydroureteronephrosis with periureteral nephric and periureteral stranding secondary to a 6 mm calculus along the left proximal ureter. 2. Redemonstrated hyperattenuating focus in the left renal lower pole measuring 1.2 cm stable. 3. Mild urinary bladder wall thickening measuring 6 mm which may reflect element of cystitis versus bladder outlet obstruction. 4. Enlarged liver with decreased hepatic attenuation suggesting hepatic steatosis. 5. Small hiatal hernia.
--- NOTE | 2023-09-02 19:39 | ED_ITS ---
HPI - General Adult General Chief complaint: Abdominal Pain Stated complaint: kidney stones Time Seen by Provider: 09/02/23 22:41 Source: patient Mode of arrival: ambulatory Limitations: no limitations History of Present Illness ED Provider: August Rebolledo PA-C HPI narrative: 47-year-old male with history of kidney stones, hypertension, CAD who presents to the ER for evaluation of 01/19 left flank pain that started yesterday. He has known kidney stones on the left side and was planned for lithotripsy with Dr. García on September 12. He works as a vacuum truck driver and yesterday after driving, when he went to urinate his urine was [employer] colored. It has since cleared. He reports ongoing severe left-sided flank pain. He is nauseous but has not vomited. No dysuria or blood in the stool. He is taking Motrin with minimal relief in the pain. MD complaint: Left-sided flank pain Onset (ago): day(s) (1) Location: back and abdomen Radiation: back Severity: severe Severity scale (1-10): 10 Quality: stabbing Pain Consistency: constant Relieving factors: medication Exacerbating factors: none Associated symptoms: denies other symptoms Treatments prior to arrival: none Related Data Home Medications ?Medication ?Instructions ?Recorded ?Confirmed ticagrelor 90 mg tablet (Brilinta) 90 mg PO BID 02/12/23 08/20/23 Previous Rx's ?Medication ?Instructions ?Recorded amlodipine 5 mg tablet 5 mg PO DAILY #30 tabs 09/27/22 aspirin 81 mg tablet,delayed 81 mg PO DAILY #30 tabs 09/27/22 release atorvastatin 80 mg tablet 80 mg PO BEDTIME #30 tabs 09/27/22 metoprolol tartrate 25 mg tablet 25 mg PO BID #30 tabs 09/27/22 nitroglycerin 0.4 mg sublingual 0.4 mg sublingual Q5MX3 PRN Chest 09/27/22 tablet (Nitrostat) Pain #30 tabs ezetimibe 10 mg tablet (Zetia) 10 mg PO DAILY #90 tabs 08/20/23 pyridoxine (vitamin B6) 100 mg 100 mg PO DAILY #90 tabs 08/20/23 tablet tadalafil 5 mg tablet (Cialis) 5 mg PO DAILY #30 tabs 08/20/23 oxycodone 5 mg tablet 5 mg PO Q4H PRN severe pain (scale 09/03/23 score 7-10) #10 tabs prednisone 20 mg tablet 40 mg (2 x 20 mg) PO DAILY #10 tabs 09/03/23 tamsulosin 0.4 mg capsule (Flomax) 0.4 mg PO DAILY #14 caps 09/03/23 Allergies Allergy/AdvReac Type Severity Reaction Status Date / Time No Known Allergies Allergy Verified 09/02/23 19:42 Review of Systems 2 Review of Systems: Yes all other systems are reviewed and are negative [facility] Past Medical History Medical History Erectile dysfunction Kidney stones Acute non-ST elevation myocardial infarction (NSTEMI) CAD (coronary atherosclerotic disease) HTN (hypertension) Surgical History S/P cardiac cath Family History Family History Father No family history of cancer Mother Leukemia Social History Social History Household Members: Spouse Housing: House Do you presently have visiting nurse or other home services: No Alcohol intake: never Patient Tobacco Use Status: Never used Tobacco Tobacco use type: Cigarette Second Hand Smoke Exposure: No Advance Directives: No Advance Directives Information Provided: Yes Do you have a plan to hurt others: No Plan service: No Physical Exam ED Vital Signs: Vital Signs - 24 hr 09/02/23 19:40 09/02/23 22:42 09/03/23 00:38 Temperature 98.7 F 98.4 F 98.2 F Pulse Rate 81 96 87 Respiratory Rate 18 14 18 Blood Pressure 162/95 H 181/90 H 152/88 H Pulse Oximetry 98 97 96 Oxygen Delivery Method Room Air Room Air Room Air BMI result Body Mass Index 31.3 Appearance: Alert. Oriented X3. No acute distress. Head: normocephalic, atraumatic. Eyes: Pupils equal, round and reactive to light. ENT: Pharynx normal. No tonsillar swelling or exudate. Neck: Normal inspection. Neck supple. CVS: Normal heart rate and rhythm. Pulses normal. Respiratory: No respiratory distress. Breath sounds normal. Abdomen: Soft and nontender. +BS x4 +CVA tenderness on the left Skin: Skin warm and dry. Normal skin color. Normal skin turgor. No rashes. Extremities: No lower extremity edema. No joint swelling. Neuro/psych: Oriented X 3. No motor deficit. No sensory deficit. CN II-XII intact. Normal speech and cognition. Course Course Course Narrative: This is a Rapid Medical Examination (RME) performed by Quiana Patel PA-C in triage. Full HPI, ROS, assessment and treatment plan per primary provider in the Main ED. 47 yo male hx kidney stones, HTN, CAD s/p cardiac cath, HDL here for eval of left sided abdominal pain/ left flank pain x wks, worsening yesterday. reports episode of [place] urine yesterday which as since resolved. He is followed up with urologist and has operations scheduled for September of this year. here w/ worsening pain not responding to motrin 600mg at home. last dose at 1200 today. visibly uncomfortable in triage. ttp of left lower quadrant. +left cvat. Plan: labs, UA, CT Medications Administered Discontinued Medications Generic Name Dose Route Start Last Admin Trade Name Freq PRN Reason Stop Dose Admin Acetaminophen 975 mg 09/02/23 22:49 09/02/23 23:02 Acetaminophen 325 Mg Tablet PO 09/02/23 22:50 975 mg ONCE ONE Administration Sodium Chloride 1,000 mls @ 999 mls/hr 09/02/23 22:45 09/03/23 00:46 Ns IVCONT 09/02/23 23:45 Infused .Q1H1M SONG Infusion Morphine Sulfate 4 mg 09/02/23 22:49 09/02/23 23:02 Morphine Sulfate 4 Mg/Ml Cartridge IVPUSH 09/02/23 22:50 4 mg ONCE ONE Administration Protocol Ondansetron HCl 4 mg 09/02/23 22:49 09/02/23 23:03 Ondansetron Hcl 4 Mg/2 Ml Vial IVPUSH 09/02/23 22:50 4 mg ONCE ONE Administration Prednisone 40 mg 09/02/23 22:49 09/02/23 23:02 Prednisone 20 Mg Tablet PO 09/02/23 22:50 40 mg ONCE ONE Administration Tamsulosin HCl 0.4 mg 09/02/23 22:49 09/02/23 23:02 Tamsulosin Hcl 0.4 Mg Capsule PO 09/02/23 22:50 0.4 mg ONCE ONE Administration Medical Decision Making Medical Decision Making [facility] Narrative: 47-year-old male with known kidney stones presents to the ER for evaluation of 10/10 left flank pain. On arrival to the ER patient is hypertensive, BP as high as 181/90. Likely due to pain. His labs show a leukocytosis of 13.2 and an DIONI with BUN/creatinine 20/1.58 from a baseline of 17/0.94. CT scan ordered from the waiting room and shows a 6 mm stone in the proximal ureter with [id number] hydroureteronephrosis. There is also bladder wall thickening. IV was established and patient was given IV fluids, morphine and Zofran for pain control, Flomax and steroids. Upon re-evaluation patient's pain was improved. He would like to go home. Will call the urology office in the morning to see if we can move up his appointment. He was given return precautions. Will discharge with oxycodone p.r.n., Flomax, steroids. Advised he has an DIONI and he should refrain from taking NSAIDs until his renal function can be rechecked in confirm normalization. Patient stable for discharge home Differential Diagnosis Differential Diagnoses: The differential diagnosis associated with the presentation includes kidney stone with hydronephrosis, UTI, pyelonephritis, DIONI, Admission/Observation Consideration of admission/observation: Escalation of care including admission/observation considered Lab Data [facility] Lab Attestation statement: I reviewed the patient's lab results. Mild leukocytosis, DIONI 09/02/23 19:59 09/02/23 19:59 Labs: Lab Results 09/02/23 09/02/23 Range/Units 19:59 22:41 WBC 13.2 H (4.8-10.8) X10*3/uL RBC 5.20 (4.60-5.80) X10*6/uL Hgb 15.9 (14.0-18.0) g/dl Hct 44.5 (42.0-52.0) % MCV 85.6 (80.0-98.0) fL MCH 30.6 (27.0-33.0) pg MCHC 35.7 (31.0-36.0) g/dl RDW 13.1 (11.0-16.0) % Plt Count 288 (160-400) X10*3/uL MPV 10.2 (9.4-12.4) fL Immature Gran % (Auto) 0.3 (0.0-0.4) % Neut % (Auto) 72.0 (45-73) % Lymph % (Auto) 16.3 L (20-40) % [place] % (Auto) 8.1 (2-11) % Eos % (Auto) 3.0 (0-4) % Baso % (Auto) 0.3 (0-2) % Lymph # (Auto) 2.2 (1.2-4.9) X10*3/uL [place] # (Auto) 1.1 (0.1-1.2) X10*3/uL Eos # (Auto) 0.4 (0.0-0.4) X10*3/uL Baso # (Auto) 0.0 (0.0-0.2) X10*3/uL Abs Immat Gran (auto) 0.04 H (0.00-0.03) X10*3/uL Absolute Neuts (auto) 9.5 H (2.0-8.3) x10*3/uL Absolute Nucleated RBC 0.000 (0.0-0.012) X10*3/uL Nucleated RBC % (auto) 0.0 (0.0-0.2) /100WBC Sodium 144 (135-145) mmol/L Potassium 4.7 (3.3-5.1) mmol/L Chloride 105 (96-108) mmol/L Carbon Dioxide 30 H (22-29) mmol/L Anion Gap 14 (12-20) BUN 20 H (9-16) mg/dL Creatinine 1.58 H (0.5-1.4) mg/dL Estim Creat Clear Calc 66.7 Estimated GFR 47 Random Glucose 128 H (60-115) mg/dL Calcium 9.3 (8.4-10.2) mg/dL Magnesium 2.2 (1.6-2.6) mg/dL Total Bilirubin 0.5 (0.0-1.0) mg/dL AST 28 (5-37) U/L ALT 43 H (0-40) U/L Alkaline Phosphatase 68 (39-117) U/L Total Protein 7.4 (6.5-8.0) g/dL Albumin 4.0 (3.5-5.0) g/dL Lipase 56 (8-78) U/L Urine Color Yellow Urine Appearance Clear Urine pH 7.5 (5.0-9.0) Ur Specific [place] 1.020 (1.005-1.025) Urine Protein Negative (Neg-Trace) mg/dL Urine Glucose (UA) Negative (Negative) mg/dL Urine Ketones Trace (Negative) mg/dL Urine Blood Small (1+) H (Negative) Urine Nitrite Negative (Negative) Ur Leukocyte Esterase Negative (Negative) Urine RBC 11-20 H (0-2) /HPF Urine WBC 0-5 (0-5) /HPF Ur Squamous Epith Cells 0-2 (0-2) /HPF Urine Bacteria None Seen (None Seen) Hyaline Casts 0-2 (0-2) /LPF Independent Interpretation I performed an independent interpretation of an: CT Scan Interpretation: large stone in the proximal ureter with hydronephrosis, agree with radiology read Radiology Impression Discussion of test interpretation with radiology: I have reviewed the radiologist's reading. Radiologist Impression: EXAMINATION: CT ABDOMEN AND PELVIS WITHOUT CONTRAST CLINICAL INFORMATION: Renal stone worsening left flank pain COMPARISON: CT abdomen from 07/30/2023 TECHNIQUE: Multidetector volumetric imaging was performed from the superior aspect of the liver through the pubic symphysis. Sagittal and coronal reformatted images were obtained on the technologist's workstation. This CT examination was performed using dose optimization techniques as appropriate, variously including the following: *Automated exposure control *Adjustment of mA and/or kV according to patient size (this includes techniques or standardized protocols for targeted exams where dose is matched to indication/reason for exam; i.e. extremities or head) *Use of iterative reconstruction technique DLP: 707 mGy-cm FINDINGS: LUNG BASES: Bibasilar atelectasis, left greater than right. No pneumothorax. No large pleural effusion. Coronary artery calcifications are noted. LIVER, GALLBLADDER, AND BILIARY TREE: Liver is enlarged measuring 19.8 cm. Decreased hepatic attenuation suggesting hepatic steatosis. No focal hepatic lesion or biliary ductal dilatation is present. The gallbladder is unremarkable with no evidence of radiopaque gallstones, gallbladder wall thickening, or obvious pericholecystic inflammatory changes. PANCREAS: Unremarkable. SPLEEN: Unremarkable. ADRENAL GLANDS: Unremarkable. KIDNEYS AND URETERS: Mild to moderate left-sided hydroureteronephrosis with periureteral nephric and periureteral stranding secondary to a 6 mm calculus along the left proximal ureter. Redemonstrated hyperattenuating focus in the left renal lower pole measuring 1.2 cm, stable. No right-sided nephrolithiasis or hydronephrosis. BLADDER: Mild urinary bladder wall thickening measuring 6 mm which may reflect element of cystitis versus bladder outlet obstruction. GASTROINTESTINAL TRACT: Small hiatal hernia. The small and large bowel are unremarkable. The appendix is unremarkable. ABDOMINAL WALL: Small hiatal hernia. LYMPH NODES: No enlarged lymph nodes per size criteria. VASCULAR: Abdominal aorta is nonaneurysmal. Atherosclerotic calcifications abdominal aorta is branches. PELVIC VISCERA: Prostate measures 3.7 cm with punctate calcifications. OSSEOUS STRUCTURES: Grade 1 anterolisthesis of L2 on L3, L3 on L4, L4 on L5. CT/CT abdomen pelvis wo IV con IMPRESSION: 1. Mild to moderate left-sided hydroureteronephrosis with periureteral nephric and periureteral stranding secondary to a 6 mm calculus along the left proximal ureter. 2. Redemonstrated hyperattenuating focus in the left renal lower pole measuring 1.2 cm stable. 3. Mild urinary bladder wall thickening measuring 6 mm which may reflect element of cystitis versus bladder outlet obstruction. 4. Enlarged liver with decreased hepatic attenuation suggesting hepatic steatosis. 5. Small hiatal hernia. External Record Review External record reviewed: Office record, Outpatient record, Prior outpatient labs and Prior outpatient radiology Prescription Management I considered prescription management with: Pain Medication and Antibiotic Chronic Conditions Patient?s care impacted by: Hypertension Critical Care Time Critical Care Time Critical Care Time: Yes Total Critical Care Time: 32 Attestation: I have personally provided critical care time exclusive of time spent on separately billable procedures. Time includes review of lab data, radiology results, discussion with consultants, and monitoring for potential decompensation. Intervention performed as documented. Discharge Plan Discharge Clinical Impression: Calculus of proximal left ureter, DIONI (acute kidney injury) Patient Disposition: Home, Self-Care Instructions: Ureteral Stones (ED) Additional Instructions: Your lab work showed a mild worsening of your kidney function. It is important drink plenty of fluids. STOP taking NSAIDs such as ibuprofen, Aleve, Motrin. It can make kidney function worse. Take Tylenol 1000 mg every 6-8 hours. Take the prescribed oxycodone as needed for severe pain only. Follow-up with your urologist. Call the office in the morning. If you develop new or worsening symptoms call 911 or come back to the ER for further evaluation. EXAMINATION: CT ABDOMEN AND PELVIS WITHOUT CONTRAST CLINICAL INFORMATION: Renal stone worsening left flank pain CT/CT abdomen pelvis wo IV con IMPRESSION: 1. Mild to moderate left-sided hydroureteronephrosis with periureteral nephric and periureteral stranding secondary to a 6 mm calculus along the left proximal ureter. 2. Redemonstrated hyperattenuating focus in the left renal lower pole measuring 1.2 cm stable. 3. Mild urinary bladder wall thickening measuring 6 mm which may reflect element of cystitis versus bladder outlet obstruction. 4. Enlarged liver with decreased hepatic attenuation suggesting hepatic steatosis. 5. Small hiatal hernia. Prescriptions: New oxycodone 5 mg tablet 5 mg PO Q4H PRN (Reason: severe pain (scale score 7-10)) Qty: 10 0RF Rx Instructions: Partial Fill upon patient request. tamsulosin [Flomax] 0.4 mg capsule 0.4 mg PO DAILY Qty: 14 0RF prednisone 20 mg tablet 40 mg PO DAILY Qty: 10 0RF No Action atorvastatin 80 mg Tablet 80 mg PO BEDTIME Qty: 30 0RF amlodipine 5 mg Tablet 5 mg PO DAILY Qty: 30 0RF Protocol: Hold for SBP< HOLD for SBP < : 90 aspirin 81 mg Tablet,Delayed Release (Dr/Ec) 81 mg PO DAILY Qty: 30 0RF nitroglycerin [Nitrostat] 0.4 mg Tablet, Sublingual 0.4 mg sublingual Q5MX3 PRN (Reason: Chest Pain) Qty: 30 0RF metoprolol tartrate 25 mg Tablet 25 mg PO BID Qty: 30 0RF Protocol: Hold for SBP/HR < HOLD for SBP < : 90 HOLD for HR < : 60 ezetimibe [Zetia] 10 mg tablet 10 mg PO DAILY Qty: 90 3RF Rx Instructions: Cholesterol lowering agent. Take along with Atorvastatin Brilinta 90 mg tablet 90 mg PO BID tadalafil [Cialis] 5 mg tablet 5 mg PO DAILY Qty: 30 1RF Rx Instructions: [id number] [facility] [id number] Member [id number] pyridoxine (vitamin B6) 100 mg tablet 100 mg PO DAILY Qty: 90 3RF Referrals: [facility] [Provider Group] (6mm proximal ureteral stone) Jennifer Evans [employer] [Primary Care Provider] - Interventions: ED Discharge Assessment Last Done: 09/03/23 00:38 Discharge Date/Time: 09/03/23 00:50 Print Language: Swedish
[2023-09-02 19:40] VITALS: BP 162/95; PULSE 81; RESP 18; TEMP 37.1; O2SAT 98; BMI 31.3
[2023-09-02 20:02] LABS: MANUAL DIFF FLAG NO
[2023-09-02 20:03] LABS: Basophils Percent Auto 0.3 % (0-2); Eosinophils Absolute Auto 0.4 X10*3/uL (0.0-0.4); Hematocrit 44.5 % (42.0-52.0); Hemoglobin 15.9 g/dl (14.0-18.0); Imm Gran Abs Auto 0.04 X10*3/uL (0.00-0.03); Imm Gran Pct Auto 0.3 % (0.0-0.4); Lymphocytes Absolute Auto 2.2 X10*3/uL (1.2-4.9); Lymphocytes Percent Auto 16.3 % (20-40); Mean Corpuscular HGB Conc 35.7 g/dl (31.0-36.0); Mean Corpuscular Hemoglobin 30.6 pg (27.0-33.0); Mean Corpuscular Volume 85.6 fL (80.0-98.0); Mean Platelet Volume 10.2 fL (9.4-12.4); Monocytes Absolute Auto 1.1 X10*3/uL (0.1-1.2); Monocytes Percent Auto 8.1 % (2-11); Neutrophils Absolute Auto 9.5 x10*3/uL (2.0-8.3); Platelet Count 288 X10*3/uL (160-400); Red Cell Distribution Width 13.1 % (11.0-16.0); White Blood Count 13.2 X10*3/uL (4.8-10.8)
[2023-09-02 20:17] LABS: Alanine Aminotransferase 43 U/L (0-40); Alkaline Phosphatase 68 U/L (39-117); Anion Gap 14 (12-20); Aspartate Amino Transferase 28 U/L (5-37); Bilirubin Total 0.5 mg/dL (0.0-1.0); Blood Urea Nitrogen 20 mg/dL (9-16); Calcium 9.3 mg/dL (8.4-10.2); Carbon Dioxide 30 mmol/L (22-29); Chloride 105 mmol/L (96-108); Creatinine Clr Calc Pharmacy 66.7; Estimated Glomerular Filt Rate 47; Glucose Random 128 mg/dL (60-115); Lipase 56 U/L (8-78); Magnesium 2.2 mg/dL (1.6-2.6); Potassium 4.7 mmol/L (3.3-5.1); Sodium 144 mmol/L (135-145); Total Protein 7.4 g/dL (6.5-8.0)
[2023-09-02 22:42] VITALS: BP 181/90; PULSE 96; RESP 14; TEMP 36.9; O2SAT 97
[2023-09-02 22:48] LABS: Appearance Urine Clear; Color Urine Yellow; Glucose Urine UA Negative (Negative); Leukocyte Esterase Urine Negative (Negative); Nitrite Urine Negative (Negative); PH 7.5 (5.0-9.0); UMIC TRIGGER UACC YES; Urine Blood Small (1+) (Negative); Urine Ketones Trace mg/dL (Negative); Urine Protein Negative (Neg-Trace)
[2023-09-02 22:51] LABS: Bacteria Urine None Seen (None Seen); Hyaline Casts Urine 0-2 /LPF (0-2); Squamous Epithelial Cell Urine 0-2 /HPF (0-2); WBC Urine 0-5 /HPF (0-5)
[2023-09-02] MEDS: Acetaminophen 325 MG TABLET 975 MG PO (23:02)
[2023-09-02] MEDS: predniSONE 20 MG TABLET 40 MG PO (23:02)
[2023-09-02] MEDS: Morphine Sulfate 4 MG/ML CARTRIDGE IVPUSH (23:02)
[2023-09-02] MEDS: Tamsulosin HCL 0.4 MG CAPSULE PO (23:02)
[2023-09-02] MEDS: 0.9 % Sodium Chloride 1,000 ML 999 ML IVCONT (23:03)
[2023-09-02] MEDS: ondansetron HCL 4 MG/2 ML VIAL IVPUSH (23:03)
--- OUTSIDE RECORDS SUMMARY | 2023-09-02 23:20 | XMS_ITS | Continuity of Care Document ---
Author Organization [facility] ter Address [address] [place] [id number]- Care Team Providers Care Block Paver Name Role Phone Not on Staff, PCP Primary Care Physician Unavail able Encounter [facility] Date(s): 10/18/22 - 11/26/[address] [id number] Attending Physician: Julius Julien MD Admitting Physician: Julius Julien MD Referring Physician: Julius Julien MD Allergies, Adverse Reactions, Alerts No Known Medication Allergies Immunizations Given and Recorded Vaccine Date Status Refusal Reason SARS-CoV-2 (COVID-19) mRNA-1273 vaccine 03/26/21 R ecorded tetanus/diphtheria/pertussis, acel(Tdap) 01/28/21 Recorded SARS-CoV-2 (COVID-19) Ad26 vaccine 07/17/20 Record ed Medications amLODIPine 5 mg oral tablet 5 mg, 1, tablet, By Mouth, Daily, # 30 tablet, Refills 2, Tot. Refills 2, Maintenance, 09/30/22 9:16:00 EDT, Route to Pharmacy Electronically, [facility], Partial fill upon patient request if the prescription is for a schedule II opioid... Start Date: 09/30/22 Status: Ordered aspirin 81 mg oral delayed release tablet 81 mg, By Mouth, Daily, # 30 tablet, Refills 2, Tot. Refills 2, Maintenance, 09/30/22 9:15:00 EDT, Route to Pharmacy Electronically, [facility], Partial fill upon patient request if theprescription is for a schedule II opioid drug., 177... Start Date: 09/30/22 Status: Ordered Brilinta (ticagrelor) 90 mg oral tablet 1 tablet = 90 mg, By Mouth, 2 times a day, # 60 tablet, 2 Refills, Maintenance, 09/30/22 9:16:00 EDT, [facility], Partial fill upon patient request if the prescription is for a scheduleII opioid drug., 177, cm, 09/30/22 2:32:00 EDT, Hei... Start Date: 09/30/22 Status: Ordered Lipitor 80 mg oral tablet = 80 mg, By Mouth, Daily at bedtime, # 30 tablet, 2 Refills, Maintenance, 09/30/22 9:16:00 EDT, Tablet, [facility], Partial fill upon patient request if the prescription is for a schedule II opioid drug., 177, cm, 09/30/22 2:32:00 EDT, H... Start Date: 09/30/22 Status: Ordered metoprolol 25 mg oral tablet 25 mg, By Mouth, 2 times a day, # 60 tablet, Refills 2, Tot. Refills 2, Maintenance, 09/30/22 9:16:00 EDT, Route to Pharmacy Electronically, [facility], Partial fill upon patient request if the prescription is for a schedule II opioid drMireya.. Start Date: 09/30/22 Status: Ordered nitroglycerin 0.4 mg sublingual tablet = 0.4 mg, Sublingual, Every 5 minutes, PRN Chest Pain, If chest pain not relieved in 5 minutes after first dose, seek immediate medical attention, # 30 tablet, 0 Refills, Maintenance, 09/30/22 9:17:00 EDT, Tablet, [facility], Partial nicci... Start Date: 09/30/22 Status: Ordered Problem List Condition Confirmation Course Effective Dates Status [facility] Informant Obese class I Confirmed Active Note * Todd Lin: PERFORM Event Display: Cardiac Rehab Note Authored Date: [id number] Patient did not show for orientation to phase II program today. I called and left a voicemail for the patient, providing both the number to access services in case he wants to reschedule as well as the number to our gym in case he has any questions for us. Patient Care team information Care Team Personnel Name: Samson Hood RN Position: S RN Member Role: Primary Care Nurse Name: Not on Staff, PCP Position: [facility] Physician (General Medicine) Member Role: PCP Care Team Related Persons Name: TOMAS NARAYAN Address: [address] [place] [address]
--- OUTSIDE RECORDS SUMMARY | 2023-09-02 23:20 | XMS_ITS | Continuity of Care Document ---
Author Organization [facility] ter Address [address] [place] [id number]- Care Team Providers Care Editorial Writer Name Role Phone Nathan HOUSE ADMIN, Jennifer Thakur Primary Care Physician [place] [facility] [place]): [place] - 09/30/[address] [address]- Discharge Disposition: A-D/C Home Attending Physician: Helene Spear MD Admitting Physician: Chastity Lamb MD Referring Physician: Chastity Lamb MD Allergies, Adverse Reactions, Alerts No Known Medication Allergies Medications amLODIPine 5 mg oral tablet 5 mg, Tablet, By Mouth, 09/30/22 9:00:00 EDT Start Date: 09/30/22 Stop Date: 09/30/22 Status: Completed amLODIPine 5 mg oral tablet 5 mg, 1, tablet, By Mouth, Daily, # 30 tablet, Refills 2, Tot. Refills 2, Maintenance, 09/30/22 9:16:00 EDT, Route to Pharmacy Electronically, [facility], Partial fill upon patient request if the prescription is for a schedule II opioid... Start Date: 09/30/22 Status: Ordered aspirin 81 mg oral delayed release tablet 81 mg, By Mouth, Daily, # 30 tablet, Refills 2, Tot. Refills 2, Maintenance, 09/30/22 9:15:00 EDT, Route to Pharmacy Electronically, [facility], Partial fill upon patient request if theprescription is for a schedule II opioid drug., 177... Start Date: 09/30/22 Status: Ordered Brilinta (ticagrelor) 90 mg oral tablet 1 tablet = 90 mg, By Mouth, 2 times a day, # 60 tablet, 2 Refills, Maintenance, 09/30/22 9:16:00 EDT, [facility], Partial fill upon patient request if the prescription is for a scheduleII opioid drug., 177, cm, 09/30/22 2:32:00 EDT, Hei... Start Date: 09/30/22 Status: Ordered Lipitor 80 mg oral tablet = 80 mg, By Mouth, Daily at bedtime, # 30 tablet, 2 Refills, Maintenance, 09/30/22 9:16:00 EDT, Tablet, [facility], Partial fill upon patient request if the prescription is for a schedule II opioid drug., 177, cm, 09/30/22 2:32:00 EDT, H... Start Date: 09/30/22 Status: Ordered metoprolol 25 mg oral tablet 25 mg, Tablet, By Mouth, 09/30/22 9:00:00 EDT Start Date: 09/30/22 Stop Date: 09/30/22 Status: Completed metoprolol 25 mg oral tablet 25 mg, By Mouth, 2 times a day, # 60 tablet, Refills 2, Tot. Refills 2, Maintenance, 09/30/22 9:16:00 EDT, Route to Pharmacy Electronically, [facility], Partial fill upon patient request if the prescription is for a schedule II opioid drMesha Start Date: 09/30/22 Status: Ordered nitroglycerin 0.4 mg sublingual tablet = 0.4 mg, Sublingual, Every 5 minutes, PRN Chest Pain, If chest pain not relieved in 5 minutes after first dose, seek immediate medical attention, # 30 tablet, 0 Refills, Maintenance, 09/30/22 9:17:00 EDT, Tablet, [facility], Partial nicci... Start Date: 09/30/22 Status: Ordered Problem List Condition Confirmation Course Effective Dates Status Health St atus Informant Obese class I Confirmed Active Results Radiology Reports * Exam Date Time Procedure Performing Provider Status 09/27/22 8:13 PM Chest Portable Jose Lopez; Auth (Ve rified) Notes: (Chest Portable) Reason For Exam: NSTEMI;Other: RESULT: Chest Portable Chest Portable Reason: Other:; NSTEMI; Clinical Question(s): CHF COMPARISON: None. FINDINGS: LINES AND TUBES: EKG leads project over the chest. LUNGS AND PLEURA: Clear lungs. Normal pulmonary vascularity. No pleural effusion. No pneumothorax. HEART, MEDIASTINUM AND MORALES: Heart is normal in size. Normal mediastinal and hilar contour. BONES AND SOFT TISSUES: No acute abnormality. IMPRESSION: No acute abnormality. WSN: [id number] Ordering Physician: Ozzy Sanders Dictated By: Tarah Wiley MD Dictated Date/Time: 09/27/22 10:03 p Reviewed By: Tarah Wiley MD Signed By: Tarah Wiley MD Signed Date/Time: 09/27/22 10:03 pm Transcribed By: MYRON Transcribed Date/Time: 09/27/22 10:02 pm Vital Signs Most recent to oldest [Reference Range]: 1 2 3 Height 177 cm (09/30/22 2:32 AM) 177 cm (09/29/22 8:42 PM) 177 cm (09/29/22 2:44 AM) Weight 99.6 kg (09/30/22 2:32 AM) 99.6 kg (09/29/22 2:44 AM) 100.1 kg (09/27/22 6:44 PM) Oxygen Saturation [94-100 %] 99 % (09/30/22 7:52 AM) 99 % (09/30/22 2:32 AM) 99 % (09/29/22 8:42 PM) Pulse Rate [55-90 bpm] 71 bpm (09/30/22 9:44 AM) 71 bpm (09/30/22 7:52 AM) 79 bpm (09/30/22 2:32 AM) Body Mass Index [18.5-24.99 kg/m2] 31.79 kg/m2 *>HHI* (09/30/22 2:32 AM) 31.79 kg/m2 *>HHI* (09/29/22 2:44 AM) 31.95 kg/m2 *>HHI* (09/27/22 6:44 PM) Blood Pressure [90-138/55-84 mm Hg] 154/90mm Hg *H* (09/30/22 9:44 AM) 156/90mm Hg *H* (09/30/22 9:44 AM) 154/90mm Hg *H* (09/30/22 7:52 AM) Respiratory Rate [16-30 br/min] 18 br/min (09/30/22 7:52 AM) 20 br/min (09/30/22 2:32 AM) 20 br/min (09/29/22 8:42 PM) Temperature [96.8-100.4 DegF] 98.4 DegF (09/30/22 7:52 AM) 98.3 DegF (09/30/22 2:32 AM) 98.0 DegF (09/29/22 8:42 PM) Mode of Delivery (Oxygen) Room air (09/30/22 7:52 AM) Room air (09/30/22 2:32 AM) Room air (09/29/22 8:42 PM) Blood pressure sites Arm, right (09/30/22 7:52 AM) Arm, left (09/30/22 2:32 AM) Arm, left (09/29/22 8:42 PM) Temperature Route Oral (09/30/22 7:52 AM) Oral (09/30/22 2:32 AM) Oral (09/29/22 8:42 PM) Dry Weight 100.1 kg (09/27/22 6:00 PM) Weight Obtained Via Bed scale (09/30/22 2:32 AM) Bed scale (09/29/22 2:44 AM) Bed scale (09/27/22 6:00 PM) Note * Event Display: Hemodynamic Procedure Report Authored Date: * Renetta Jonhson: PERFORM, SIGN, VERIFY Event Display: Cardiac Rehab Note Authored Date: Patient: OLIVIA ALVARADO Age: 47 years Sex: Male : 1975 Associated Diagnoses: None Author: Renetta Johnson Diagnosis Cardiac Rehab Diagnosis: s/p NSTEMI/ NELLA to OM1/ kissing balloon at OM1/OM2 bifurcation. Pre-exercise Vitals Vital Signs Comment: Reviewed in [facility]. Activity Symptoms with Cardiac Rehab Symptoms: No exertional symptoms. Activity Transfers: independent. Ambulate: independent. Patient Education Education: Written material included, Stent card reviewed. Education topic Teachback comprehension 75% Topic: Pathophysiology, Lipid management, Medication education, Role of exercise, Home activity guidelines/limits, Hypertension, Infarct recovery guidelines. Recommendation and Plan Outpatient follow up recommended: [facility], 10/27/22 @ 8:00 AM. Cardiac Rehab: Will sign off at this time. * Audrey Dotson: PERFORM Event Display: Discharge/Transfer Note Hospital Authored Date: [id number] Nursing Discharge Note Entered On: 09/30/2022 10:57 EDT Performed On: 09/30/2022 10:57 EDT by Audrey Dotson Nursing Discharge Note 2 Discharge Time : 09/30/2022 10:57 EDT Discharge Level of Care at Discharge : Home/Retirement/Foster Care Patient Left Unit Via : Ambulatory Patient Accompanied Off Unit with : Significant other DC Instructions Provided & Signed by Pt : Yes Patient Understands D/C Instructions : Yes Patient Instructions Discharge Signed : Yes Did Pt have Specialty Bed or Wound Vac : No Audrey Dotson - 09/30/2022 10:57 EDT * Rainer LOVELACE, Helene: PERFORM Event Display: Discharge/Transfer Note Hospital Authored Date: [id number] Patient: ??OLIVIA ALVARADO ? Age:??47 Years?Sex:??Male?:??1975?? Patient Information Discharge Location: Primary Care Physician: Jennifer Evans NP Admit Date/Time: 09/27/22 17:51 Discharge Disposition Discharge Disposition: ?? Discharge Diagnosis ?? NSTEMI (non-ST elevated myocardial infarction) (I21.4) ?? _ Discharge Medications Amlodipine (amLODIPine 5 mg oral tablet)?5?Milligram?1?tablet?By Mouth?Daily Aspirin (aspirin 81 mg oral delayed release tablet)?81?Milligram?By Mouth?Daily Atorvastatin (Lipitor 80 mg oral tablet)?80?Milligram?By Mouth?Daily at bedtime Metoprolol (metoprolol 25 mg oral tablet)?25?Milligram?By Mouth?2 times a day Nitroglycerin (nitroglycerin 0.4 mg sublingual tablet)?0.4?Milligram?Sublingual?Every 5minutes?as needed?Chest Pain?If chest pain not relieved in 5 minutes after first dose, seek immediate medical attention Ticagrelor (Brilinta (ticagrelor) 90 mg oral tablet)?1?tab(s)?90?Milligram?By Mouth?2 times a day ? Quality Measures Chest Pain, AMI Quality Measures:?Beta-Mohsen Prescribed at Discharge:??Beta-Mohsen Prescibed ?Aspirin Prescribed at Discharge:??Aspirin Prescribed ?Statin Prescribed at Discharge:??Statin Prescribed ? Medications Started as above Medications Discontinued none Doses Changed none Allergies Allergies ?(Active and Proposed Allergies Only) No Known Medication Allergies? (Severity: Unknown severity, Onset: Unknown) ? Hospital Course 47 year old male with NSTEMI ?? NSTEMI: CP with positive trop PE unlikely CP resolved ASA/statin IV heparin was started and cards did cath--s/p stent as below ?Interventional Summary ??Successful drug eluting stenting of the ostial OM-1 coronary artery with a ??2.5 x 18 stent as described above. ??Kissing balloon inflation OM1 and OM2 bifurcation. ?Interventional Recommendations ??Continue aspirin 81 mg indefinitely. ??Continue ticagrelor 90 mg po bid therapy for at least 12 month(s) post-PCI. ??Aggressive secondary risk factor modification according to ATP III ??guidelines. ??Referral for cardiac rehab. ??If recurrent symptoms then would consider PCI to RCA. ?ACC Diagnostic Recommendations: PCI without planned CABG. ?? Brshellta added Cards ok with d/c d/c on DAPT, statin and BB with counseling ti be compliant with meds and f/u--pt agreed ?? HTN: BB and norvasc pre DM: Life style modifications ? Today feels fine with no complaint. Having stable vitals. CTA BL, S1, S2 no GMR.Abd SOft, NT, BS+ve, AAO3. no pedal edema ?? Objective . Physical Exam Pending Results CBC ordered on 09/27/2022 Patient Education Titles Ticagrelor Oral Tablet?? Metoprolol Oral Tablet?? Atorvastatin Oral Tablet?? Aspirin Delayed Release Oral Tablet?? Amlodipine Oral Tablet?? Taking Amlodipine?? Discharge Instructions for Cardiac Catheterization?? Exercising After a Heart Attack?? First Aid: Heart Attacks?? Know the Medicines You???re Taking?? Follow-Up Appointments Added Follow Up ?Time Frame ?Comments Julius Julien?4 to 5 weeks Please dont stop your medications with out talking to your Dr--very very important Jennifer Evans?1 to 2 weeks?also for the refills of medications Post Discharge Care Discharge ?09/30/22 9:15:00 EDT Discharge Prescriptions ?ePrescribed, ??09/30/22 9:15:00 EDT Home Health Face to Face ^HomeHealthFTF 35??minutes spent on discharge * Audrey Dotson: PERFORM Event Display: Patient Education/Instruction Authored Date: [id number] Inpatient Adult Discharge Instructions [address] [address] Name: OLIVIA ALVARADO : 1975 Visit: 09/27/2022 17:51:00 Current Date: 09/30/2022 10:11 Account: [id number] Inpatient Adult Discharge Instructions We would like to thank you for allowing us to assist you with your healthcare needs. The following includes patient education materials and information regarding your injury/illness. Our entire staffstrives to provide an excellent experience for our patients and their families. PLEASE ENSURE YOU FOLLOW-UP PER THE INSTRUCTIONS BELOW! ?? YOUR OPINION IS IMPORTANT TO US! Please complete the survey you may receive by mail or email. Your feedback will be used to make improvements to the healthcare experiences of our patients and their families. Surveys are administered by [employer] ?? If further treatment with your primary care physician or another doctor is recommended, it is important for you to keep the appointment. Call your primary care physician or return to the Emergency Department immediately if your condition worsens, fails to improve, or new symptoms develop. If you need to find a doctor, you can call [facility] for a referral at [phone] or toll free at [phone] ([phone]) or log in to [email or web address].. ?? You can view and manage your care through the patient portal or by using a health care niru of your choosing. [employer] is a website that allows you to securely view your medical information including your hospital discharge summary, office visit summaries, medications and follow-up visits. You can also request appointments, renew medications, and request access to your medical information using a health care niru of your choosing, or just ask a question. You can enroll at [email or web address] or register during your next office visit. You have been discharged from [facility], Patient Care Unit: M5. If you have any questions regarding these instructions after you leave, please call us and we will be happy to assist you. [facility] Your Care Team Attending Physician Helene Spear MD Consulting Providers Candice Juarez MD, Nirav R Discharging Providers Helene Spear MD Reason for Admission ACS Your Diagnosis Obese class I NSTEMI (non-ST elevated myocardial infarction) HTN (hypertension) Hyperlipidemia Prediabetes Tests Performed Below is a partial list of the tests performed during your hospitalization. You may have had other tests and procedures not included in this list. Please discuss all test results with your provider. Basic Metabolic Panel CBC w/ Differential Comprehensive Metabolic Panel COVID-19 (2019 Novel Coronavirus) PCR GLUCOSE POC Hemoglobin A1C w/ Estimated Glucose High??Sensitivity??Troponin T HOLD LAVENDER TUBE Lipid Panel PTT Portable Chest Primary Care Provider Nathan ROBERTS, Jennifer Thakur Advance Directive Health Care Proxy on File Yes - Health Care Proxy Discharge Vitals Temperature: 98.4 DegF Height: 177 cm Pulse Rate: 71 bpm Weight: 99.6 kg Respiratory Rate: 18 br/min Body Mass Index:??31.79 kg/m2??Critical Systolic Blood Pressure:??156 mm Hg??High Body surface area: 2.21 Systolic Blood Pressure:??154 mm Hg??High ?? Diastolic Blood Pressure:??90 mm Hg??High ?? Diastolic Blood Pressure:??90 mm Hg??High ?? Oxygen Saturation: 99 % ?? Studies Pending All tests and labs ordered during this hospital stay have been completed unless listed below. Please discuss all pending results with your provider listed above in these instructions. ?? CBC What to do next Instructions From Your Doctor Discharge Orders You Need to Schedule the Following Appointments Follow Up with??[facility] When:??10/27/2022 08:00 AM EDT Where: [address] [facility]. [address] [place] [address] Follow Up with??Julius Julien When:??Within 4 to 5 weeks Where: [address] [place] [address] [facility] [place] [address] [facility] (1) Follow Up with??Please dont stop your medications with out talking to your Dr--very very important Follow Up with??Jennifer Evans When:??Within 1 to 2 weeks Why: also for the refills of medications Where: [address] [facility], [place] [address]- Business (1) Discharge Medications ALVARADOOLIVIA :1975 Visit Date:09/27/2022 Medications: Please continue your medications until treatment is completed or stopped by your provider. Medications not listed below should be discontinued. Discuss any questions related to medications with your provider. What How Much When Instructions Next Dose New Amlodipine (amLODIPine 5 mg oral tablet) 1 tab(s) Oral Daily Refills: [facility] Tomorrow morning New Aspirin (aspirin 81 mg oral delayed release tablet) 81 Milligram Oral Daily Refills: 2 Pickup at [facility] Tomorrow morning New Atorvastatin (Lipitor 80 mg oral tablet) 80 Milligram Oral Daily at Bedtime Refills: 2 Pickup at [facility] Tonight at bedtime New Metoprolol (metoprolol 25 mg oral tablet) 25 Milligram Oral Twice a day Refills: 2 Pickup at [address] New Nitroglycerin (nitroglycerin 0.4 mg sublingual tablet) 0.4 Milligram Sublingual Every 5 minutes as needed for Chest Pain If chest pain not relieved in 5 minutes after first dose, seek immediate medical attention ?? Pickup at [place] [address] as needed for chest pain New Ticagrelor (Brilinta (ticagrelor) 90 mg oral tablet) 1 tab(s) Oral Twice a day Refills: 2 Pickup at [address] Pharmacy Information [facility]: [address] [place], [place] [id number] [phone] Test Results Below is a partial list of the most recent Laboratory test results done prior to this discharge. You may have had other tests and procedures not included in this list. Please discuss all test resultswith your provider. Est Creatinine Clearance - 83.04 mL/min (09/30/2022) Basic Metabolic Panel (09/30/2022) ???Sodium - 139 mmol/L???Potassium - 4.6 mmol/L???Chloride - 100 mmol/L???Bicarbonate Level - 26 mmol/L???Anion Gap - 13???Glucose Level - 90 mg/dL???BUN - 15 mg/dL???Creatinine-Blood - 1.1 mg/dL???Estimated GFR Creatinine - 86 ML/MIN/1.73 M2???Calcium - 9.1 mg/dL CBC w/ Differential (09/30/2022) ???WBC - 11.0 k/mm3???RBC - 5.23 m/mm3???Hgb - 15.6 Gm/dL???Hct - 46.3 %???MCV - 88.5 femtoliters???MCH - 29.8 pg???MCHC - 33.7 g/dL???Platelet Count - 264 k/mm3???RDW-SD - 43.0 femtoliters???MPV - 11.6 femtoliters???Nucleated RBC (Automated) - 0.0 #/100 WBC'S???Abs. NRBC - 0.0 k/mm3???Abs. Neut - 7.1 k/mm3???Abs. Lymph - 2.8 k/mm3???Abs. Rooks - 0.7 k/mm3???Abs. Eo - 0.4 k/mm3???Abs. Baso - 0.0 k/mm3???Neut % - 64.1 %???Lymph % - 25.1 %???Rooks % - 6.6 %???Eos % - 3.4 %???Baso % - 0.3 %???Imm Gran - 0.5 %???Abs. Imm Gran - 0.1 k/mm3 Comprehensive Metabolic Panel (09/27/2022) ???Sodium - 135 mmol/L???Potassium - 4.3 mmol/L???Chloride - 101 mmol/L???Bicarbonate Level - 22 mmol/L???Anion Gap - 12???Glucose Level - 117 mg/dL???BUN - 13 mg/dL???Creatinine-Blood - 0.9 mg/dL???Estimated GFR Creatinine - 107 ML/MIN/1.73 M2???Calcium - 9.4 mg/dL???Protein, Total - 6.9 Gm/dL???Al bumin - 4.4 Gm/dL???AG Ratio - 1.8???Alkaline Phosphatase - 69 units/L???AST (SGOT) - 31 units/L???ALT (SGPT) - 42 units/L???Bilirubin, Total - 0.2 mg/dL COVID-19 (2019 Novel Coronavirus) PCR (09/27/2022) ???COVID-19 PCR Specimen Source - NASAL???COVID-19 PCR Result - NEGATIVE GLUCOSE POC (09/30/2022) ???Glucose, POC - 83 mg/dL Hemoglobin A1C w/ Estimated Glucose (2022) ???Hemoglobin A1C (Monitoring) - 5.8 %???Estimated Average Glucose - 120 mg/dL High??Sensitivity??Troponin T (2022) ???High Sensitivity Troponin (HSTnT) - 223 ng/L HOLD LAVENDER TUBE (09/29/2022) ???Hold Lavender Top - SPECIMEN DISCARDED AFTER 24 HOURS. Lipid Panel (2022) ???Cholesterol - 194 mg/dL???Triglycerides - 314 mg/dL???HDL Cholesterol - 33 mg/dL???LDL Cholesterol - 98 mg/dL???Non HDL Cholesterol - 161 mg/dL PTT (09/29/2022) ???APTT - 46.2 seconds Allergies (NKA means No Known Allergies) No Known Medication Allergies Problems Active Problems??(1) Obese class I?? Education Materials Below is the list of Educational Leaflet Providered with your Discharge Instructions. Ticagrelor Oral Tablet?? Metoprolol Oral Tablet?? Atorvastatin Oral Tablet?? Aspirin Delayed Release Oral Tablet?? Amlodipine Oral Tablet?? Taking Amlodipine?? Discharge Instructions for Cardiac Catheterization?? Exercising After a Heart Attack?? First Aid: Heart Attacks?? Know the Medicines You???re Taking?? Valuables and Belongings I fully understand and agree that [facility] accepts no responsibility for all my personal property including clothing, toilet articles, radios, jewelry, dentures, hearing aids, rings, money, or any other property that is in my possession or is brought to me after admission. I understand certain valuables may be placed in a hospital safe for a short period of time. I understand that the hospital is not liable for loss or damage due to accident, fire, or other natural occurrence while said property is in the safe. I accept full responsibility for any personal property that I keep with me, and will not hold the hospital responsible in case of loss or disappearance. I acknowledge that i have been encouraged to send valuables and belongings home. ?? Review of Valuable and Belonging List: With patient Date for Pt to Sign Valuables/Belongings: 09/30/22 10:10:00 ?? Other Discharge Information ? Pulmonary Rehab Status?? Pulmonary Rehab Discharge Status?? Respiratory Rate: 18 br/min ? Common Emergency Awareness Tips IS IT A STROKE? Act FAST and Check for these signs: FACE Does the face look uneven? ARM Does one arm drift down? SPEECH Does their speech sound strange? TIME Call at any sign of stroke ?? Heart Attack Signs Chest discomfort: Most heart attacks involve discomfort in the center of the chest and lasts more than a few minutes, or goes away and comes back. It can feel like uncomfortable pressure, squeezing, fullness or pain. Discomfort in upper body: Symptoms can include pain or discomfort in one or both arms, back, neck, jaw or stomach. Shortness of breath: With or without discomfort. Other signs: Breaking out in a cold sweat, nausea, or lightheaded. Remember, MINUTES DO MATTER. If you experience any of these heart attack warning signs, call to get immediate medical attention! ?? Smoking can increase your chances of developing chronic health problems and can cause harmful effects to other family members in your house. If you smoke, you are strongly encouraged to quit. Please call [facility] at [phone] or [phone] or log in to [email or web address] for referrals to smoking cessation programs. ?? 332 Suicide & Crisis Lifeline is available 02/11 if you or someone you know needs to find a reason to keep living. By calling 123 you'll be connected to a skilled, trained counselor at a crisis center in your area. INPATIENT DISCHARGE INSTRUCTIONS SIGNATURE PAGE OLIVIA ALVARADO Location:[facility] Registration Date and Time:09/27/2022 17:51 EDT Primary Care Physician: Jennifer Evans NP, Attending Physician: Helene Spear MD, I OLIVIA ALVARADO, have received the above patient education materials/instructions and have verbalized understanding. If ambulance or transport services are being used I further acknowledge being given a choice of service. ?? If you need to contact me, please call me at this number: . Patient/Harbor Engineer Name: Patient/Harbor Engineer Signature: Relationship to Patient: Witness Name/Signature: Date: * Helene Spear MD: SIGN Renetta Johnson: PERFORM, SIGN Renetta Johnson: SIGN, VERIFY Renetta Johnson: VERIFY Event Display: Patient Education Handout Authored Date: [id number] * Helene Spear MD: PERFORM Event Display: Patient Education Leaflets Authored Date: [id number] Ticagrelor Oral Tablet ?? [address] Ticagrelor Oral Tablet Brands: Brilinta Uses This medicine is used for the following purposes: ??? heart disease ??? prevent blood clots ??? prevent heart attack ?? Instructions This medicine may be taken with or without food. This medicine will work best if you take it at about the same time every day. Store at room temperature away from heat, light, and moisture. Do not keep in the bathroom. It is important that you keep taking each dose of this medicine on time even if you are feeling well. If you forget a dose, just wait. Use the next dose at the usual time. Do not use 2 doses at once. Drug interactions can change how medicines work or increase risk for side effects. Tell your healthcare providers about all medicines taken. Include prescription and lrev-yoa-jdwskko medicines, vitamins, and herbal medicines. Speak with your doctor or pharmacist before starting or stopping any medicine. It is very important that you follow your doctor's instructions for all blood tests. ?? Cautions This medicine may cause serious bleeding problems in patients taking blood thinner medications. Follow your doctor's instructions carefully to monitor your blood lab tests if you are on blood thinners. Tell your doctor and pharmacist if you ever had an allergic reaction to a medicine. This medicine may cause serious bleeding from the stomach or bowels. Stop this medicine and call your doctor immediately if you see any signs of bleeding. Bleeding can cause pain in the stomach, vomiting up liquid that looks like coffee grounds, and red or dark tarry stools. There is an increased risk of bleeding while on this medicine, please tell your doctor or nurse if you notice any excessive bleeding or bruising. Do not use the medication any more than instructed. Speak with your doctor before taking any medicine with aspirin. Please check with your doctor before drinking alcohol while on this medicine. Tell the doctor or pharmacist if you are , planning to be , or . Do not take Gely's wort while on this medicine. Call your doctor right away if you notice any unusual bleeding or bruising. Do not share this medicine with anyone who has not been prescribed this medicine. Some patients have serious side effects from this medicine. Ask your pharmacist to show you the information from the Food and Drug Administration (FDA) and discuss it with you. Always refill this medicine before it runs out. ?? Side Effects The following is a list of some common side effects from this medicine. Please speak with your doctor about what you should do if you experience these or other side effects. ??? coughing ??? nosebleeds Call your doctor or get medical help right away if you notice any of these more serious side effects: ??? bleeding or bruising ??? breathing interruption during sleep ??? shallow, irregular breathing ??? coughing up blood or vomit that looks like coffee grounds ??? fainting ??? fever ??? numbness or tingling in hands and feet ??? severe or persistent headache ??? sudden leg pain, swelling, warmth or redness ??? loss of movement anywhere on the body ??? shortness of breath ??? bloody or dark, tarry stools ??? symptoms of stroke (such as one-sided weakness, slurred speech, confusion) ??? difficulty swallowing ??? unusual or unexplained tiredness or weakness ??? blood in urine ??? blurring or changes of vision A few people may have an allergic reaction to this medicine. Symptoms can include difficulty breathing, skin rash, itching, swelling, or severe dizziness. If you notice any of these symptoms, seek medical help quickly. ?? Extra Please speak with your doctor, nurse, or pharmacist if you have any questions about this medicine. ?? [email or web address]/[email or web address] IMPORTANT NOTE: This document tells you briefly how to take your medicine, but it does not tell youall there is to know about it. Your doctor or pharmacist may give you other documents about your medicine. Please talk to them if you have any questions. Always follow their advice. There is a more complete description of this medicine available in [place]. Scan this code on your smartphone or tablet or use the web address below. You can also ask your pharmacist for a printout. If you have any questions, please ask your pharmacist. The display and use of this drug information is subject to Terms of Use. Copyright(c) 2022 [employer]. ?? [employer]. All rights reserved. This information is not intended as a substitute for professional medical care. Always follow your healthcare professional's instructions. ?? * Helene Spear MD: PERFORM Event Display: Patient Education Leaflets Authored Date: [id number] Metoprolol Oral Tablet ?? [id number] Metoprolol Oral Tablet Brands: Lopressor Uses This medicine is used for the following purposes: ??? angina ??? heart attack ??? heart disease ???high blood pressure ??? irregular heart beat ??? prevent migraine headaches ??? movement disorder ?? Instructions Take the medicine with food. This medicine will work best if you take it at about the same time every day. Keep the medicine at room temperature. Avoid heat and direct light. It is important that you keep taking each dose of this medicine on time even if you are feeling well. If you forget to take a dose on time, take it as soon as you remember. If it is almost time for thenext dose, do not take the missed dose. Return to your normal schedule. Do not take 2 doses at one time. Drug interactions can change how medicines work or increase risk for side effects. Tell your healthcare providers about all medicines taken. Include prescription and fdqj-mfr-nlyuumz medicines, vitamins, and herbal medicines. Speak with your doctor or pharmacist before starting or stopping any medicine. This medicine may cause low blood sugar. Eat regular meals and exercise as instructed by your doctor. Tell your doctor if you have symptoms of low blood sugar such as nausea, sweating, cold skin, fast heartbeat, hunger, and irritability. If you have diabetes, this medicine may hide some signs of low blood sugar, such as fast heartbeat.Check your blood sugar regularly and for other signs of low blood sugar. ?? Cautions Tell your doctor and pharmacist if you ever had an allergic reaction to a medicine. Some patients with weak hearts may have worsening of symptoms. If you notice difficulty breathing, weight gain, or swelling of your legs or ankles, let your doctor know right away. Do not use the medication any more than instructed. This medicine may cause dizziness or fainting, especially after exercising or in hot weather. Be very careful when standing or sitting up quickly. Your ability to stay alert or to react quickly may be impaired by this medicine. Do not drive or operate machinery until you know how this medicine will affect you. Please check with your doctor before drinking alcohol while on this medicine. Tell the doctor or pharmacist if you are , planning to be , or . Do not share this medicine with anyone who has not been prescribed this medicine. ?? Side Effects The following is a list of some common side effects from this medicine. Please speak with your doctor about what you should do if you experience these or other side effects. ??? diarrhea ??? dizziness or drowsiness ??? lack of energy and tiredness ??? slow heartbeat ??? low blood pressure Call your doctor or get medical help right away if you notice any of these more serious side effects: ??? confusion ??? depression or feeling sad ??? fainting ??? pale or blue skin, lips or fingernails??? shortness of breath ??? unusual or unexplained tiredness or weakness ??? sudden or unexplained weight gain A few people may have an allergic reaction to this medicine. Symptoms can include difficulty breathing, skin rash, itching, swelling, or severe dizziness. If you notice any of these symptoms, seek medical help quickly. ?? Extra Please speak with your doctor, nurse, or pharmacist if you have any questions about this medicine. ?? [email or web address]/[email or web address] IMPORTANT NOTE: This document tells you briefly how to take your medicine, but it does not tell youall there is to know about it. Your doctor or pharmacist may give you other documents about your medicine. Please talk to them if you have any questions. Always follow their advice. There is a more complete description of this medicine available in [place]. Scan this code on your smartphone or tablet or use the web address below. You can also ask your pharmacist for a printout. If you have any questions, please ask your pharmacist. The display and use of this drug information is subject to Terms of Use. Copyright(c) 2022 [employer]. ?? [employer]. All rights reserved. This information is not intended as a substitute for professional medical care. Always follow your healthcare professional's instructions. ?? * Helene Spear MD: PERFORM Event Display: Patient Education Leaflets Authored Date: [id number] Atorvastatin Oral Tablet ?? [id number] Atorvastatin Oral Tablet Brands: Lipitor Uses To lower high fat levels in blood. ?? Instructions This medicine may be taken with or without food. Keep the medicine at room temperature. Avoid heat and direct light. Avoid grapefruit and grapefruit juice while on this medicine. It is important that you keep taking each dose of this medicine on time even if you are feeling well. If you forget to take a dose on time, take it as soon as you remember. If it is less than 12 hours to the next dose, do not take the missed dose. Return to your normal dosing schedule. Do not take 2 doses of this medicine at one time. Drug interactions can change how medicines work or increase risk for side effects. Tell your healthcare providers about all medicines taken. Include prescription and izca-pdt-bnzdvnv medicines, vitamins, and herbal medicines. Speak with your doctor or pharmacist before starting or stopping any medicine. It is very important that you follow your doctor's instructions for all blood tests. ?? Cautions Tell your doctor and pharmacist if you ever had an allergic reaction to a medicine. Do not use the medication any more than instructed. Please check with your doctor before drinking alcohol while on this medicine. Do not breastfeed while on this medicine. During , this medicine should be used only when clearly needed. Talk to your doctor about the risks and benefits. Do not share this medicine with anyone who has not been prescribed this medicine. ?? Side Effects Call your doctor or get medical help right away if you notice any of these more serious side effects: ??? signs of kidney damage (such as change in urine color or bubbly urine) ??? signs of liver damage (such as yellowing of eye or skin, dark urine, or unusual tiredness) ??? muscle pain ??? nausea ??? stomach upset or abdominal pain A few people may have an allergic reaction to this medicine. Symptoms can include difficulty breathing, skin rash, itching, swelling, or severe dizziness. If you notice any of these symptoms, seek medical help quickly. ?? Extra Please speak with your doctor, nurse, or pharmacist if you have any questions about this medicine. ?? [email or web address]/fdbpem/284 IMPORTANT NOTE: This document tells you briefly how to take your medicine, but it does not tell youall there is to know about it. Your doctor or pharmacist may give you other documents about your medicine. Please talk to them if you have any questions. Always follow their advice. There is a more complete description of this medicine available in [place]. Scan this code on your smartphone or tablet or use the web address below. You can also ask your pharmacist for a printout. If you have any questions, please ask your pharmacist. The display and use of this drug information is subject to Terms of Use. Copyright(c) 2022 [employer]. ?? [employer]. All rights reserved. This information is not intended as a substitute for professional medical care. Always follow your healthcare professional's instructions. ?? History and physical note * Ozzy Sanders MD: PERFORM, MODIFY Event Display: History and Physical Hospital Authored Date: Patient: ??OLIVIA ALVARADO ? Age:??46 Years?Sex:??Male?:??1975?? Chief Complaint/Reason for Consultation CP History of Present Illness The pt is overweight male w pmhx of htn, hlp, both??uncontrolled, at baseline runs at 148/86 and over. He took himself off of Lisinopril in hopes of controlling it with diet only. He also has h/o early CAD in both parents, at 40 s years of age. 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 However, he reports a chest pressure with radiation to his jaw and neck past 2 weeks in particular with exertion and rest made it better. His EKG at [facility] revealed d iffuse ST changes in particular inferior leads, and repeat was improved after treatment with NG. His initial troponin was negative but repeat revealed elevated at 284. He ruled in for NSTEMI and started on low dose asa, metoprolol, high dose statin and hep gtt. He was given Nitropaste for cp which he could not tolerate due to severe headache the night??of 09/26, when his trop increased to 975. Hisrandom glucose was 175 and TG 447, cholesterol 244, HDL 25 and LDL TNP. CXR was unremarkable. He underwent ECHO which revealed normal EF but he had wall motion abnormality in the RCA territory. This morning he was seen by Dr. Aparicio and rec d to cont low dose asa, high dose statin, Hep gtt and add Amlodipine due to ongoing htn and continue with metoprolol which was initiated during admission to [facility]. He is transferred here for cardiac catheterization. He is symptom free at thistime. He had his dinner w/o any issues. Review of Systems Constitutional:??No weight loss, fever, chills, weakness or fatigue. Allergy/Immune: Denies any??Eczema or hives Eyes:??No visual loss, blurred vision, double vision or yellow sclera ENT:??No hearing loss, sneezing, congestion, runny nose or sore throat. Respiratory:??No shortness of breath, cough or sputum production. Cardiovascular:??No chest pain, chest pressure or chest discomfort. No palpitations or pedal edema. Gastrointestinal:??No anorexia, nausea, vomiting or diarrhea. No abdominal pain or blood in stool. Genitourinary:??No burning micturition. No urinary frequency or incontinence. Neurologic:??No headache, dizziness, syncope, unilateral weakness, ataxia, numbness or tingling in the extremities. No change in bowel or bladder control. Musculoskeletal:??No muscle pain, back pain, joint pain or stiffness. Hematologic/Lymphatics:??No bleeding or bruising. No painful lymph nodes. Skin:??No rash or itching. Endocrine:??No reports of sweating. No cold or heat intolerance. No polyuria or polydipsia. Psychiatric:??No depression or anxiety. Objective Measurements?? Height: 177 cm (09/27/22) Weight: 100.1 kg (09/27/22) Dry Weight: 100.1 kg (09/27/22) Body Mass Index:??31.95 kg/m2??Critical (09/27/22) ?? Vital Signs?? Temperature: 98.2 DegF (09/27/22 20:00:00) Temperature Route: Oral (09/27/22 20:00:00) Pulse Rate: 67 bpm (09/27/22 20:00:00) Respiratory Rate: 18 br/min (09/27/22 20:00:00) Systolic Blood Pressure:??141 mm Hg??High (09/27/22 20:00:00) Diastolic Blood Pressure:??90 mm Hg??High (09/27/22 20:00:00) Blood pressure sites: Arm, left (09/27/22 20:00:00) Mean Arterial Pressure: 113 mm Hg (09/27/22 18:00:00) Pulse Pressure: 51 mm Hg (09/27/22 20:00:00) Oxygen Saturation: 98 % (09/27/22 20:00:00) Mode of Delivery (Oxygen): Room air (09/27/22 20:00:00) Early Warning Score: 1 (09/27/22 20:15:47) ?? Physical Exam Constitutional: Alert, in no distress. Mental Status: Oriented to person, place and time. Head: Normocephalic. Eyes: Pupils are equal, round and reactive to light. Extraocular muscles intact. Ear, Nose and Throat: Oropharynx clear, mucous membranes moist. Ears and nose without masses, lesions or deformities. Trachea midline. Neck: Supple, Full range of motion. Respiratory: Clear to auscultation. No wheezing, rales or rhonchi. Cardiovascular: S1 S2 regular. No murmurs, rubs or gallops. Gastrointestinal: Abdomen soft, non-tender, non-distended. Normal bowel sounds. No pulsatile mass. No hepatosplenomegaly. Genitourinary: No costovertebral angle tenderness. Neurologic: Cranial nerves II-XII grossly intact. No focal neurological deficits. Flexor plantar response. Moves all extremities spontaneously. Sensation intact bilaterally. Skin: No rashes or lesions. No petechiae or purpura.?? Musculoskeletal: No cyanosis or clubbing. No gross deformities. Normal range of motion. Psychiatric: Normal mood and affect Assessment/Plan ?? NSTEMI (non-ST elevated myocardial infarction) ??(I21.4) HTN (hypertension) ??(I10) Hyperlipidemia ??(E78.5) Obese class I ??(Z68.30) Prediabetes ??(R73.03) Plan -Admit to medicine -Tele -Cont low dose asa -Cont high dose statin -Hep gtt per ACS protocol -We are deferring dual antiplatelet to our cardiology team -Continue Metoprolol 25 mg po bid, with caution since RCA territory is involved, was started at [place] per Dr. Aparicio's note -Start Amlodipine 5 mg now and continue daily, also rec d by Dr. Aparicio -Follow BP trend, likely will need ASIA post cath -NPO after MN -POC/SSI and hypoglycemia during acute setting. He can be trialed with Metformin, duet??and weight loss measures as outpt w pcp -Lipid panel and hgba1c in am -[facility] Cardiology consult entered to the cis ?? Quality Measures Dvt, high risk, hep gtt Cardiac diet Full code Histories Allergies Allergies ?(Active and Proposed Allergies Only) No Known Medication Allergies? (Severity: Unknown severity, Onset: Unknown) ? Past Medical History/Problem List HTN Obese class I HLP ?? Past Surgical History No surgery history documented. ?? Social History No tobacco. Occasional etoh.? Family History Both parents CAD at ages of ealry 40s?? Medications Home Medications Denies ?? Inpatient Medications Medications (19) Active SCHEDULED: (6) Amlodipine 5 mg Tablet (amLODIPine 5 mg oral tablet) ??5 mg, By Mouth, Daily Amlodipine 5 mg Tablet (amLODIPine 5 mg oral tablet) ??5 mg, By Mouth, Once Aspirin 81 mg EC Tablet (aspirin 81 mg oral delayed release tablet) ??81 mg, By Mouth, Daily Atorvastatin 80 mg Tablet (Lipitor 80 mg oral tablet) ??80 mg, By Mouth, Daily at bedtime Metoprolol 25mg Tablet (metoprolol 25 mg oral tablet) ??25 mg, By Mouth, 2 times a day NaCl 0.9% Flush 3ml (NaCL 0.9% Flush) ??3 mL, IV Push, Every 8 hours CONTINUOUS: (1) Heparin 25,000 units / 250 mL D5W premix 25,000 units [14 units/kg/hr] + D5%W Premixed IV 250 mL (Heparin 25,000 units in 250 mL Premix 25,000 units [14 units/kg/hr] + D5%W Premixed IV 250 mL) ??250 mL, IV Infusion, 14.01 mL/hr PRN: (12) Acetaminophen 325 mg Tablet (Acetaminophen Tablet) ??650 mg, By Mouth, Every 4 hours Bisacodyl 10 mg Suppository (Dulcolax Supp) ??10 mg 1 supp, Rectally, Daily Dextromethorphan-Guaifenesin 20 mg-200 mg/10 mL Liqu UD (Robitussin DM Liquid) ??10 mL, By Mouth, Every 4 hours Heparin 5000 units/mL Inj (1 mL) (Heparin Inj) ??6,000 units 1.2 mL, IV Push, Every 6 hours Heparin 5000 units/mL Inj (1 mL) (Heparin Inj) ??3,000 units 0.6 mL, IV Push, Every 6 hours Melatonin 3 mg Tablet (Melatonin Tablet) ??3 mg, By Mouth, Daily at bedtime NaCl 0.9% Flush 3ml (NaCL 0.9% Flush) ??3 mL, IV Push, Every 8 hours Nitroglycerin 0.4 mg Sublingual Tablet (nitroglycerin 0.4 mg sublingual tablet) ??0.4 mg, Sublingual, Every 5 minutes Ondansetron 2mg/mL Inj (2mL Vial) (Ondansetron Inj) ??4 mg, IV Push, Every 4 hours Polyethylene Glycol 17 Gm Powder (MiraLax Powder) ??17 Gm 1 pack/packet, By Mouth, Daily Senna 8.6 mg / Docusate 50 mg tablet (Docusate/Senna Tablet) ??1 tablet, By Mouth, 2 times a day Simethicone 80 mg Chewable Tablet (Simethicone Tablet) ??80 mg, Chew, 3 times a day Results Recent Labs CARDIAC High Sensitivity Troponin (HSTnT) 154 ng/L (Critical)?? 09/27/2022 18:55 ?? CHEM GENERAL Sodium 135 mmol/L ()?? 09/27/2022 18:55 Potassium 4.3 mmol/L ()?? 09/27/2022 18:55 Chloride 101 mmol/L ()?? 09/27/2022 18:55 Bicarbonate Level 22 mmol/L ()?? 09/27/2022 18:55 Anion Gap 12 ()?? 09/27/2022 18:55 Glucose Level 117 mg/dL (High)?? 09/27/2022 18:55 BUN 13 mg/dL ()?? 09/27/2022 18:55 Creatinine-Blood 0.9 mg/dL ()?? 09/27/2022 18:55 Estimated GFR Creatinine 107 ML/MIN/1.73 M2 ()?? 09/27/2022 18:55 Calcium 9.4 mg/dL ()?? 09/27/2022 18:55 Protein, Total 6.9 Gm/dL ()?? 09/27/2022 18:55 Albumin 4.4 Gm/dL ()?? 09/27/2022 18:55 AG Ratio 1.8 ()?? 09/27/2022 18:55 Alkaline Phosphatase 69 units/L ()?? 09/27/2022 18:55 AST (SGOT) 31 units/L ()?? 09/27/2022 18:55 ALT (SGPT) 42 units/L (High)?? 09/27/2022 18:55 Bilirubin, Total 0.2 mg/dL ()?? 09/27/2022 18:55 ?? COAG APTT 28.3 seconds ()?? 09/27/2022 18:55 ?? URINE OTHER Est Creatinine Clearance 102.61 mL/min ()?? 09/27/2022 19:39 ? Abnormal Labs ?? CARDIAC ??High Sensitivity Troponin (HSTnT) ??154 ng/L (Critical) ??09/27/2022 18:55 ? CHEM GENERAL ??AG Ratio ??1.8 () ??09/27/2022 18:55 ??ALT (SGPT) ??42 units/L (High) ??09/27/2022 18:55 ??Estimated GFR Creatinine ??107 ML/MIN/1.73 M2 () ??09/27/2022 18:55 ??Glucose Level ??117 mg/dL (High) ??09/27/2022 18:55 ? Note: Critical results are displayed in red. ? Cardiology Labs High Sensitivity Troponin (HSTnT):??154 ng/L??Critical (09/27/22 18:55:00) ?? EKG study * Event Display: ECG 12-Lead Authored Date: Please click on pdf link to open report * Event Display: ECG 12-Lead Authored Date: Ventricular Rate: 75 BPM Atrial Rate: 75 BPM P-R Interval: 126 ms QRS Duration: 92 ms Q-T Interval: 384 ms QTC Calculation(Bazett): 428 ms P [place]: 54 degrees R [place]: 43 degrees T [place]: 7 degrees Normal sinus rhythm Possible Left atrial enlargement T wave abnormality, consider inferior ischemia Abnormal ECG When compared with ECG of 29-SEP-2022 10:46, MANUAL COMPARISON REQUIRED, DATA IS UNCONFIRMED Confirmed by RIZWANA LOUIE MD ([id number]) on 09/30/2022 12:30:44 PM [place]: RIZWANA LOUIE MD Cardiology * Event Display: Cardiac Rhythm Strips Authored Date: Hospital Progress note * Antoinette Corral RN: VERIFY, PERFORM, SIGN Event Display: Progress Note Hospital Authored Date: [id number] Patient: OLIVIA ALVARADO Age: 47 years Sex: Male : 1975 Associated Diagnoses: None Author: Antoinette Corral RN Findings Problem Related to Alteration in Cardiac Function (new) : Alteration in Cardiac Function/new 09/29/2022 22:00 EDT Alteration in Cardiac Status Related to ACS, Cardiac Procedure Goals & Outcomes, Cardiac Status Pt will resume/maintain adequate cardiac output, Pt will resume/maintain adequate hemodynamic status, Pt will resume/maintain adequate respiratory function, Pt will resume/maintain intact neuro function, Pt will maintain adequate GI/ function appropriate for pt, Pt will maintain adequate nutrition status, Pt/caregiver will state understanding of diagnosis, Pt/caregiver will state strategies to reduce risk factors, Other: ACS Cardiac Interventions Implemented Assess/monitor cardiac status, Assess/monitor neuro status, Assess/monitor respiratory status, Call/Report variances in ECG to provider, Document & Monitor O2 Sats; Administer O2 as ordered, Ensure adequate caloric intake, If no bowel movement in 3 days activate bowel regime, Monitor & document daily weight, Obtain 12 Lead ECG and CXR as ordered, Teach/encourage deep breath & cough exercises, Apply pressure at puncture site if hematoma develops, Assess baseline peripheral pulses, Assess for post procedural discomfort, Assess for post procedural hematoma at site, Assess procedure site for distal pulses, Pre/post PCI guideline BH Goals/Interventions, Cardiac Yes Cardiac, Problem Start 2022 12:07 Reviewed Plan with, Cardiac Status Patient Patient Progression, Cardiac Status Patient progressing according to plan . Nursing Data Cardiac Data. : Cardiac Data. 09/29/2022 20:00 EDT Cardiovascular Symptoms None Nail Bed Color, Fingers [place] Nail Bed Color, Toes [place] Skin Temperature Upper Extremities Warm Skin Temperature Lower Extremities Warm Heart Sounds S1, S2 Heart Rhythm Regular Pacemaker No Cardiac Rhythm Normal sinus rhythm Capillary Refill < 3 seconds Radial Pulse, Right Normal Dorsalis Pedis Pulse, Left Normal Dorsalis Pedis Pulse, Right Normal Edema None night monitor Yes Cardiovascular WNL except . Vital Signs : VITAL SIGNS SECTION 09/30/2022 2:34 EDT Early Warning Score 1.00 09/30/2022 2:32 EDT Temperature 98.3 DegF Temperature Route Oral Pulse Rate 79 bpm Respiratory Rate 20 br/min Systolic Blood Pressure 152 mm Hg H Diastolic Blood Pressure 89 mm Hg H Blood pressure sites Arm, left Mean Arterial Pressure 110 mm Hg Pulse Pressure 63 mm Hg Oxygen Saturation 99 % Mode of Delivery (Oxygen) Room air 09/29/2022 21:44 EDT Early Warning Score 1.00 09/29/2022 21:00 EDT Early Warning Score 1.00 09/29/2022 20:44 EDT Early Warning Score 1.00 09/29/2022 20:42 EDT Temperature 98.0 DegF Temperature Route Oral Pulse Rate 80 bpm Respiratory Rate 20 br/min Systolic Blood Pressure 139 mm Hg H Diastolic Blood Pressure 97 mm Hg H Blood pressure sites Arm, left Mean Arterial Pressure 111 mm Hg Pulse Pressure 42 mm Hg Oxygen Saturation 99 % Mode of Delivery (Oxygen) Room air . Evaluation Pt alert and oriented x3, VSS< tele NSR, LSC, BS+, voiding, no edema, pp+. Right wrist dressing /D/I. Pt denies any CP, SOB, lightheadedness or dizziness. Will cont to monitor and report any changes. See nsg biophysical for complete assessment. . * Rainer LOVELACE, Helene: PERFORM Event Display: Progress Note Hospital Authored Date: Patient: ??OLIVIA ALVARADO ? Age:??47 Years?Sex:??Male?:??1975?? Subjective CC: CP ? no complaint cardiac cath done today Review of Systems Constitutional: no fever, night sweats Cardiac: no chest pain or palpitations Resp: no dyspnea or cough GI: no nausea, vomiting or abd pain : no hematuria or dysuria Musculoskeletal: no muscle or joint pain. no back pain?? Objective Vital Signs?? Temperature: 98 DegF (09/29/22 14:00:00) Temperature Route: Oral (09/29/22 14:00:00) Pulse Rate: 65 bpm (09/29/22 14:00:00) Respiratory Rate: 18 br/min (09/29/22 14:00:00) Systolic Blood Pressure: 132 mm Hg (09/29/22 14:00:00) Diastolic Blood Pressure: 72 mm Hg (09/29/22 14:00:00) Blood pressure sites: Arm, left (09/29/22 14:00:00) Mean Arterial Pressure: 104 mm Hg (09/29/22 02:44:00) Pulse Pressure: 60 mm Hg (09/29/22 14:00:00) Oxygen Saturation: 100 % (09/29/22 14:00:00) Mode of Delivery (Oxygen): Room air (09/29/22 14:00:00) Early Warning Score: 1 (09/29/22 14:08:22) ? Physical Exam CORPORATE RECRUITER: AA0 3, no focal?? deficit, cranial nerves II to XII intact CVS:?? S1, S2, No gallop, murmur or rub Resp:?? CTA b/l GI: Soft, NT, ND, BS +ve EXT: no pedal edema Skin: no rash Neck: supple Eyes: PERRLA, EOMI?? Head: atraumatic, normocephalic ENMT: moist mucus membranes, nares patent?? Musculoskeletal: no joint tenderness _ Inpatient Medications Medications (24) Active SCHEDULED: (7) Amlodipine 5 mg Tablet (amLODIPine 5 mg oral tablet) ??5 mg, By Mouth, Daily Aspirin 81 mg EC Tablet (aspirin 81 mg oral delayed release tablet) ??81 mg, By Mouth, Daily Atorvastatin 80 mg Tablet (Lipitor 80 mg oral tablet) ??80 mg, By Mouth, Daily at bedtime Insulin Lispro 100 units/mL Inj (3mL) (Insulin LISPRO Sliding Scale) ??2-10 units, Subcutaneous Injection, 3 times a day before meals Metoprolol 25mg Tablet (metoprolol 25 mg oral tablet) ??25 mg, By Mouth, 2 times a day NaCl 0.9% Flush 3ml (NaCL 0.9% Flush) ??3 mL, IV Push, Every 8 hours Ticagrelor 90 mg Tablet (Ticagrelor Tablet) ??90 mg 1 tablet, By Mouth, 2 times a day CONTINUOUS: (0) PRN: (17) Acetaminophen 325 mg Tablet (Acetaminophen Tablet) ??650 mg, By Mouth, Every 4 hours Bisacodyl 10 mg Suppository (Dulcolax Supp) ??10 mg 1 supp, Rectally, Daily Dextromethorphan-Guaifenesin 20 mg-200 mg/10 mL Liqu UD (Robitussin DM Liquid) ??10 mL, By Mouth, Every 4 hours Dextrose Inj Syringe (Dextrose 50% Inj Syringe (25Gm)) ??12.5 Gm, IV Push Slowly, Every 20 minutes Dextrose Inj Syringe (Dextrose 50% Inj Syringe (25Gm)) ??25 Gm, IV Push Slowly, Every 15 minutes diphenhydrAMINE 25 mg Tablet (Benadryl Tablet) ??25 mg, By Mouth, Every 4 hours Glucagon 1 mg Inj (Glucagon Inj) ??1 mg, Intramuscular, Once Glucose 40% Gel (15 Gm) (Glucose Gel) ??15 Gm, By Mouth, Every 20 minutes Glucose 40% Gel (15 Gm) (Glucose Gel) ??30 Gm, By Mouth, Every 20 minutes Hydrocortisone 1% Cream (HydroCORTisone ??1% Topical) ??1 application, Topically, 3 times a day Melatonin 3 mg Tablet (Melatonin Tablet) ??3 mg, By Mouth, Daily at bedtime NaCl 0.9% Flush 3ml (NaCL 0.9% Flush) ??3 mL, IV Push, Every 8 hours Nitroglycerin 0.4 mg Sublingual Tablet (nitroglycerin 0.4 mg sublingual tablet) ??0.4 mg, Sublingual, Every 5 minutes Ondansetron 2mg/mL Inj (2mL Vial) (Ondansetron Inj) ??4 mg, IV Push, Every 4 hours Polyethylene Glycol 17 Gm Powder (MiraLax Powder) ??17 Gm 1 pack/packet, By Mouth, Daily Senna 8.6 mg / Docusate 50 mg tablet (Docusate/Senna Tablet) ??1 tablet, By Mouth, 2 times a day Simethicone 80 mg Chewable Tablet (Simethicone Tablet) ??80 mg, Chew, 3 times a day ? Results Recent Labs BLOOD COUNT & DIFF WBC 10.5 k/mm3 ()?? 09/29/2022 06:16 RBC 5.26 m/mm3 ()?? 09/29/2022 06:16 Hgb 16.0 Gm/dL ()?? 09/29/2022 06:16 Hct 46.7 % ()?? 09/29/2022 06:16 MCV 88.8 femtoliters ()?? 09/29/2022 06:16 MCH 30.4 pg ()?? 09/29/2022 06:16 MCHC 34.3 g/dL ()?? 09/29/2022 06:16 Platelet Count 284 k/mm3 ()?? 09/29/2022 06:16 RDW-SD 42.9 femtoliters ()?? 09/29/2022 06:16 MPV 11.4 femtoliters ()?? 09/29/2022 06:16 Nucleated RBC (Automated) 0.0 #/100 WBC'S ()?? 09/29/2022 06:16 Abs. NRBC 0.0 k/mm3 ()?? 09/29/2022 06:16 Abs. Neut 5.3 k/mm3 ()?? 09/29/2022 06:16 Abs. Lymph 3.9 k/mm3 (High)?? 09/29/2022 06:16 Abs. Rooks 0.8 k/mm3 ()?? 09/29/2022 06:16 Abs. Eo 0.4 k/mm3 ()?? 09/29/2022 06:16 Abs. Baso 0.1 k/mm3 ()?? 09/29/2022 06:16 Neut % 50.6 % ()?? 09/29/2022 06:16 Lymph % 37.6 % ()?? 09/29/2022 06:16 Rooks % 7.2 % ()?? 09/29/2022 06:16 Eos % 3.8 % ()?? 09/29/2022 06:16 Baso % 0.5 % ()?? 09/29/2022 06:16 Imm Gran 0.3 % ()?? 09/29/2022 06:16 Abs. Imm Gran 0.0 k/mm3 ()?? 09/29/2022 06:16 ?? CARDIAC High Sensitivity Troponin (HSTnT) 223 ng/L (Critical)?? 2022 02:20 ?? CHEM GENERAL Sodium 135 mmol/L ()?? 09/29/2022 11:25 Potassium 4.6 mmol/L ()?? 09/29/2022 11:25 Chloride 100 mmol/L ()?? 09/29/2022 11:25 Bicarbonate Level 20 mmol/L (Low)?? 09/29/2022 11:25 Anion Gap 15 ()?? 09/29/2022 11:25 Glucose Level 109 mg/dL (High)?? 09/29/2022 11:25 Glucose, POC 89 mg/dL ()?? 09/29/2022 11:58 Hemoglobin A1C (Monitoring) 5.8 % (High)?? 2022 02:11 BUN 13 mg/dL ()?? 09/29/2022 11:25 Creatinine-Blood 0.9 mg/dL ()?? 09/29/2022 11:25 Estimated GFR Creatinine 105 ML/MIN/1.73 M2 ()?? 09/29/2022 11:25 Calcium 9.3 mg/dL ()?? 09/29/2022 11:25 Estimated Average Glucose 120 mg/dL ()?? 2022 02:11 ?? COAG APTT 46.2 seconds (High)?? 09/29/2022 06:16 ?? HEME OTHER Hold Lavender Top SPECIMEN DISCARDED AFTER 24 HOURS. ()?? 09/29/2022 11:23 ?? LIPID STUDIES Cholesterol 194 mg/dL ()?? 2022 02:11 Triglycerides 314 mg/dL (High)?? 2022 02:11 HDL Cholesterol 33 mg/dL (Low)?? 2022 02:11 LDL Cholesterol 98 mg/dL ()?? 2022 02:11 Non HDL Cholesterol 161 mg/dL (High)?? 2022 02:11 ?? URINE OTHER Est Creatinine Clearance 101.50 mL/min ()?? 2022 03:54 ? Assessment/Plan ??47 year old male with NSTEMI ?? NSTEMI: CP with positive trop PE unlikely CP resolved ASA/statin IV heparin was started and cards did cath--s/p stent as below ?Interventional Summary ??Successful drug eluting stenting of the ostial OM-1 coronary artery with a ??2.5 x 18 stent as described above. ??Kissing balloon inflation OM1 and OM2 bifurcation. ?Interventional Recommendations ??Continue aspirin 81 mg indefinitely. ??Continue ticagrelor 90 mg po bid therapy for at least 12 month(s) post-PCI. ??Aggressive secondary risk factor modification according to ATP III ??guidelines. ??Referral for cardiac rehab. ??If recurrent symptoms then would consider PCI to RCA. ?ACC Diagnostic Recommendations: PCI without planned CABG. ?? Brilinta added monitor for any recurrence monitor on tele BB ?? HTN: BB and norvasc pre DM: SSI DVT prophylaxis: IV heparin stopped. will add SCD * Juju Dexter RN: SIGN, MODIFY, SIGN, MODIFY, PERFORM, SIGN, VERIFY Event Display: Progress Note Hospital Authored Date: Patient: OLIVIA ALVARADO Age: 47 years Sex: Male : 1975 Associated Diagnoses: None Author: Juju Dexter RN Findings Evaluation (Pt awake and alert ox3. Pt denies c/p or sob. Monitor sinus. Pt called to cath lab radiology technician. Heparin gtt stopped. Pt oob steady gait noted. VSS will continue to monitor and report any changes.) * Juju Dexter RN: PERFORM Event Display: Progress Note Hospital Authored Date: Pt returned from the film laboratory technician. Pt awake and alert ox3. Pt denies c/p or sob. Monitor sinus. R radial tr band stable pos r radial pulse noted. IV fluids infusing per orders. Will continue to monitor and report any changes. * Juju Dexter RN: PERFORM Event Display: Progress Note Hospital Authored Date: R radial tr band removed site stable pos r radial pulse dsg applied. IV fluids infused. VSS will continue to monitor and report any changes. Patient Care team information Care Team Personnel Name: Samson Hood RN Position: [facility] RN Member Role: Primary Care Nurse Name: Jennifer Evans NP Position: [facility] Outreach Member Role: PCP Address: Address: [address] [place] [address], [place], [place] [address]
[2023-09-03 00:38] VITALS: BP 152/88; PULSE 87; RESP 18; TEMP 36.8; O2SAT 96
== END 2023-09-03 00:50 | disposition home or self-care (01) ==
PROVIDERS: Physician Assistant Medical; Emergency Provider Emergency Medicine; PCP Nurse Practitioner Primary Care
DX: N17.9 Acute kidney failure, unspecified (principal); N20.2 Calculus of kidney with calculus of ureter; R10.9 Unspecified abdominal pain; R82.90 Unspecified abnormal findings in urine; I10 Essential (primary) hypertension; I25.10 Atherosclerotic heart disease of native coronary artery without angina pectoris
CPT/HCPCS: 36415; 74176; 80053; 81001; 83690; 83735; 85025; 96361; 96374; 96375; 99284; J2270; J2405

== ENCOUNTER 2023-09-04 15:02 | Inpatient (IN) | payer MEDICAID, SELFPAY ==
--- NOTE | ~2023-09-04 | FL_ITS ---
EXAMINATION: XR FLUOROSCOPY WITH IMAGES CLINICAL INFORMATION: Left-sided ureteral stent placement COMPARISON: CT abdomen from 09/02/2023 TECHNIQUE: Fluoroscopy Supervised By: Salvador Thakur M.D.. Fluoroscopy Time: 22 seconds. Cumulative Dose: 9.23 mGy. Images: 2. FINDINGS: 2 images obtained by C-arm camera revealed placement of left ureteral stent. FL/FL guidance in OR IMPRESSION: Left ureteral stent placement
--- NOTE | ~2023-09-04 | US_ITS ---
EXAMINATION: US RETROPERITONEAL LIMITED (RENAL ONLY) CLINICAL INFORMATION: Flank pain. COMPARISON: CT scan 09/02/2023 TECHNIQUE: Standard renal and bladder ultrasound FINDINGS: RIGHT KIDNEY: 11.2 x 7.0 x 5.3 cm (SAG x AP x TRV). The kidney is normal in size, contour, and echogenicity. Renal cortical thickness is normal. No calculi or focal parenchymal lesions. No hydronephrosis. LEFT KIDNEY: 12.7 x 8.2 x 6.3 cm (SAG x AP x TRV). The kidney is normal in size, contour, and echogenicity. Renal cortical thickness is normal. No perinephric collection but there is mild to moderate pelvic caliectasis consistent with hydronephrosis. No obstructing source demonstrated. The bladder is notable for a normal ureteral jet on the right but no jet seen on the left. No stone visualized. US/US renal BI IMPRESSION: Findings consistent with ongoing obstruction on the left..
[2023-09-04 15:25] VITALS: BP 153/80; PULSE 70; RESP 16; TEMP 36.6; O2SAT 95; BMI 31.0
--- NOTE | 2023-09-04 15:25 | ED_ITS ---
HPI - General Adult General Chief complaint: Abdominal Pain Stated complaint: left kidney pain hx of stones Time Seen by Provider: 09/04/23 23:35 Source: patient Mode of arrival: ambulatory Limitations: no limitations History of Present Illness HPI narrative: Patient with obstructive 6 mm left proximal ureteric stone with moderate hydronephrosis was seen here on 09/01 for left flank pain comes back as pain medication not helping him and still having pain with nausea no fever no chills no gross hematuria patient is on Brilinta and aspirin for cardiac stent placed 6 months ago Related Data Home Medications ?Medication ?Instructions ?Recorded ?Confirmed ticagrelor 90 mg tablet (Brilinta) 90 mg PO BID 02/12/23 08/20/23 Previous Rx's ?Medication ?Instructions ?Recorded amlodipine 5 mg tablet 5 mg PO DAILY #30 tabs 09/27/22 aspirin 81 mg tablet,delayed 81 mg PO DAILY #30 tabs 09/27/22 release atorvastatin 80 mg tablet 80 mg PO BEDTIME #30 tabs 09/27/22 metoprolol tartrate 25 mg tablet 25 mg PO BID #30 tabs 09/27/22 nitroglycerin 0.4 mg sublingual 0.4 mg sublingual [id number] PRN Chest 09/27/22 tablet (Nitrostat) Pain #30 tabs ezetimibe 10 mg tablet (Zetia) 10 mg PO DAILY #90 tabs 08/20/23 pyridoxine (vitamin B6) 100 mg 100 mg PO DAILY #90 tabs 08/20/23 tablet tadalafil 5 mg tablet (Cialis) 5 mg PO DAILY #30 tabs 08/20/23 oxycodone 5 mg tablet 5 mg PO Q4H PRN severe pain (scale 09/03/23 score 7-10) #10 tabs prednisone 20 mg tablet 40 mg (2 x 20 mg) PO DAILY #10 tabs 09/03/23 tamsulosin 0.4 mg capsule (Flomax) 0.4 mg PO DAILY #14 caps 09/03/23 Allergies Allergy/AdvReac Type Severity Reaction Status Date / Time No Known Allergies Allergy Verified 09/04/23 15:28 Review of Systems 2 Review of Systems: Yes all other systems are reviewed and are negative PMFSH Past Medical History Medical History Erectile dysfunction Kidney stones Acute non-ST elevation myocardial infarction (NSTEMI) CAD (coronary atherosclerotic disease) HTN (hypertension) Surgical History S/P cardiac cath Family History Family History Father No family history of cancer Mother Leukemia Social History Social History Household Members: Spouse Housing: House Do you presently have visiting nurse or other home services: No Alcohol intake: never Patient Tobacco Use Status: Never used Tobacco Tobacco use type: Cigarette Smoked in Last 30 Days: No Second Hand Smoke Exposure: No Use of substances other than those prescribed or required for medical reasons: No Advance Directives: No Advance Directives Information Provided: No Nutrition Risks: No Nutritional Risk service: No Physical Exam ED Vital Signs: Vital Signs - 24 hr 09/04/23 15:25 Temperature 97.8 F Pulse Rate 70 Respiratory Rate 16 Blood Pressure 153/80 H Pulse Oximetry 95 Oxygen Delivery Method Room Air BMI result Body Mass Index 31.0 Appearance: Alert. Oriented X3. In moderate distress Eyes: No pallor or icterus ENT: Pharynx normal. Oral Mucosa moist Neck: Normal inspection. Neck supple. CVS: Normal heart rate and rhythm. Pulses normal. Respiratory: No respiratory distress. Equal air entry bilateral, no wheezing/rales/rhonchi Abdomen: Soft and nontender. Bowel sounds are present, no mass palpable, L CVA tenderness++ Skin: Skin warm and dry. Normal skin color. Normal skin turgor. Extremities: No lower extremity edema. No calf tenderness Neuro: Oriented X 3. No motor deficit. Course Course Course Narrative: This is an RME: Additional HPI, ROS, PE not included below will be deferred to primary provider. RME assessment and note performed by: Sandy Courtney PA-C This is a 30-bvhc-tib-male, with a hx of hypertension, hyperlipidemia, CAD, STEMI with stent on ticagrelor, kidney stones who presents to the ER with a complaint of left flank pain. Patient was seen here on September 01 due to left- sided flank pain, diagnosed with a 6 mm stone, was discharged on Flomax prednisone, and oxycodone however states that his pain is only increasing. Endorsing nausea and vomiting. Patient declines wanting Zofran from triage. Plan: Labs, UA, ultrasound Medications Administered Discontinued Medications Generic Name Dose Route Start Last Admin Trade Name Ezra PRN Reason Stop Dose Admin Sodium Chloride 1,000 mls @ 999 mls/hr 09/04/23 23:42 09/05/23 00:57 Ns IV 09/05/23 00:42 Infused .Q1H1M ONE Infusion Morphine Sulfate 4 mg 09/04/23 23:42 09/04/23 23:56 Morphine Sulfate 4 Mg/Ml Cartridge IVPUSH 09/04/23 23:43 4 mg ONCE ONE Administration Protocol Ondansetron HCl 4 mg 09/04/23 23:42 09/04/23 23:56 Ondansetron Hcl 4 Mg/2 Ml Vial IVPUSH 09/04/23 23:43 4 mg ONCE ONE Administration Medical Decision Making Medical Decision Making [facility] Narrative: Patient with left obstructive proximal ureteric calculus on Brilinta and aspirin unable to tolerate pain will admit patient for pain control case discussed Dr. Escobar will be seeing him in the morning not sure whether he will do the procedure as patient is on Brilinta and aspirin patient has slightly elevated creatinine to 1.59 Differential Diagnosis Differential Diagnoses: The differential diagnosis associated with the presentation includes Ureteric colic/UTI/ Admission/Observation Consideration of admission/observation: Escalation of care including admission/observation considered Consult Healthcare Provider Management of the patient was discussed with: Hospitalist Lab Data [facility] Lab Attestation statement: I reviewed the patient's lab results. 09/04/23 16:24 09/04/23 16:24 Labs: Lab Results 09/04/23 09/04/23 Range/Units 16:24 17:20 WBC 16.2 H (4.8-10.8) X10*3/uL RBC 5.42 (4.60-5.80) X10*6/uL Hgb 16.4 (14.0-18.0) g/dl Hct 46.9 (42.0-52.0) % MCV 86.5 (80.0-98.0) fL MCH 30.3 (27.0-33.0) pg MCHC 35.0 (31.0-36.0) g/dl RDW 13.5 (11.0-16.0) % Plt Count 275 (160-400) X10*3/uL MPV 10.5 (9.4-12.4) fL Immature Gran % (Auto) 0.6 H (0.0-0.4) % Neut % (Auto) 84.6 H (45-73) % Lymph % (Auto) 11.9 L (20-40) % [place] % (Auto) 2.7 (2-11) % Eos % (Auto) 0.1 (0-4) % Baso % (Auto) 0.1 (0-2) % Lymph # (Auto) 1.9 (1.2-4.9) X10*3/uL [place] # (Auto) 0.4 (0.1-1.2) X10*3/uL Eos # (Auto) 0.0 (0.0-0.4) X10*3/uL Baso # (Auto) 0.0 (0.0-0.2) X10*3/uL Abs Immat Gran (auto) 0.09 H (0.00-0.03) X10*3/uL Absolute Neuts (auto) 13.7 H (2.0-8.3) x10*3/uL Absolute Nucleated RBC 0.000 (0.0-0.012) X10*3/uL Nucleated RBC % (auto) 0.0 (0.0-0.2) /100WBC Sodium 140 (135-145) mmol/L Potassium 4.9 (3.3-5.1) mmol/L Chloride 104 (96-108) mmol/L Carbon Dioxide 24 (22-29) mmol/L Anion Gap 17 (12-20) BUN 33 H (9-16) mg/dL Creatinine 1.59 H (0.5-1.4) mg/dL Estim Creat Clear Calc 65.9 Estimated GFR 47 Random Glucose 146 H (60-115) mg/dL Calcium 9.9 D (8.4-10.2) mg/dL Total Bilirubin 0.6 (0.0-1.0) mg/dL Direct Bilirubin 0.2 (0.0-0.5) mg/dL AST 24 (5-37) U/L ALT 39 (0-40) U/L Alkaline Phosphatase 59 (39-117) U/L Total Protein 8.1 H (6.5-8.0) g/dL Albumin 4.5 (3.5-5.0) g/dL Lipase 114 H (8-78) U/L Urine Color Yellow Urine Appearance Clear Urine pH 6.0 (5.0-9.0) Ur Specific [place] 1.020 (1.005-1.025) Urine Protein Trace (Neg-Trace) mg/dL Urine Glucose (UA) Negative (Negative) mg/dL Urine Ketones Negative (Negative) mg/dL Urine Blood Large (3+) H (Negative) Urine Nitrite Negative (Negative) Ur Leukocyte Esterase Negative (Negative) Urine RBC >20 H (0-2) /HPF Urine WBC 0-5 (0-5) /HPF Ur Squamous Epith Cells 0-2 (0-2) /HPF Urine Bacteria None Seen (None Seen) Hyaline Casts 0-2 (0-2) /LPF Radiology Impression Discussion of test interpretation with radiology: I have reviewed the radiologist's reading. Radiologist Impression: [place] [id number] Ultrasound Report Signed Patient: Adam Enciso MR#: [id number] : 1975 Acct:[id number] Age/Sex: 47 / M ADM Date: 09/04/23 Loc: .ED Attending Dr: Ordering Physician: Sandy Courtney Date of Service: 09/04/23 Procedure(s): US renal BI Accession Number(s): [id number] cc: Sandy Courtney; SHERRY FERGUSON NP~ EXAMINATION: US RETROPERITONEAL LIMITED (RENAL ONLY) CLINICAL INFORMATION: Flank pain. COMPARISON: CT scan 09/02/2023 TECHNIQUE: Standard renal and bladder ultrasound FINDINGS: RIGHT KIDNEY: 11.2 x 7.0 x 5.3 cm (SAG x AP x TRV). The kidney is normal in size, contour, and echogenicity. Renal cortical thickness is normal. No calculi or focal parenchymal lesions. No hydronephrosis. LEFT KIDNEY: 12.7 x 8.2 x 6.3 cm (SAG x AP x TRV). The kidney is normal in size, contour, and echogenicity. Renal cortical thickness is normal. No perinephric collection but there is mild to moderate pelvic caliectasis consistent with hydronephrosis. No obstructing source demonstrated. The bladder is notable for a normal ureteral jet on the right but no jet seen on the left. No stone visualized. US/US renal BI IMPRESSION: Findings consistent with ongoing obstruction on the left Discharge Plan Discharge Clinical Impression: Renal colic on left side Patient Disposition: Admitted As Inpatient
[2023-09-04 16:32] LABS: MANUAL DIFF FLAG NO
[2023-09-04 16:34] LABS: Basophils Percent Auto 0.1 % (0-2); Eosinophils Percent Auto 0.1 % (0-4); Hematocrit 46.9 % (42.0-52.0); Hemoglobin 16.4 g/dl (14.0-18.0); Imm Gran Abs Auto 0.09 X10*3/uL (0.00-0.03); Imm Gran Pct Auto 0.6 % (0.0-0.4); Lymphocytes Absolute Auto 1.9 X10*3/uL (1.2-4.9); Lymphocytes Percent Auto 11.9 % (20-40); Mean Corpuscular Hemoglobin 30.3 pg (27.0-33.0); Mean Corpuscular Volume 86.5 fL (80.0-98.0); Mean Platelet Volume 10.5 fL (9.4-12.4); Monocytes Absolute Auto 0.4 X10*3/uL (0.1-1.2); Monocytes Percent Auto 2.7 % (2-11); Neutrophils Absolute Auto 13.7 x10*3/uL (2.0-8.3); Neutrophils Percent Auto 84.6 % (45-73); Platelet Count 275 X10*3/uL (160-400); Red Blood Count 5.42 X10*6/uL (4.60-5.80); Red Cell Distribution Width 13.5 % (11.0-16.0); White Blood Count 16.2 X10*3/uL (4.8-10.8)
[2023-09-04 17:06] LABS: Alanine Aminotransferase 39 U/L (0-40); Albumin Level 4.5 g/dL (3.5-5.0); Alkaline Phosphatase 59 U/L (39-117); Anion Gap 17 (12-20); Aspartate Amino Transferase 24 U/L (5-37); Bilirubin Direct 0.2 mg/dL (0.0-0.5); Bilirubin Total 0.6 mg/dL (0.0-1.0); Blood Urea Nitrogen 33 mg/dL (9-16); Calcium 9.9 mg/dL (8.4-10.2); Carbon Dioxide 24 mmol/L (22-29); Chloride 104 mmol/L (96-108); Creatinine Clr Calc Pharmacy 65.9; Estimated Glomerular Filt Rate 47; Glucose Random 146 mg/dL (60-115); Lipase 114 U/L (8-78); Potassium 4.9 mmol/L (3.3-5.1); Sodium 140 mmol/L (135-145); Total Protein 8.1 g/dL (6.5-8.0)
[2023-09-04 17:46] LABS: Appearance Urine Clear; Color Urine Yellow; Glucose Urine UA Negative (Negative); Leukocyte Esterase Urine Negative (Negative); Nitrite Urine Negative (Negative); UMIC TRIGGER UACC YES; Urine Blood Large (3+) (Negative); Urine Ketones Negative (Negative); Urine Protein Trace mg/dL (Neg-Trace)
[2023-09-04 17:51] LABS: Bacteria Urine None Seen (None Seen); Hyaline Casts Urine 0-2 /LPF (0-2); RBC Urine >20 /HPF (0-2); Squamous Epithelial Cell Urine 0-2 /HPF (0-2); WBC Urine 0-5 /HPF (0-5)
[2023-09-04] MEDS: 0.9 % Sodium Chloride 1,000 ML 999 ML IV (23:56)
[2023-09-04] MEDS: Morphine Sulfate 4 MG/ML CARTRIDGE IVPUSH (23:56)
[2023-09-04] MEDS: ondansetron HCL 4 MG/2 ML VIAL IVPUSH (23:56)
--- NOTE | 2023-09-05 00:31 | PM.IMHP ---
History of Present Illness Date of Service: 09/05/23 Chief Complaint: Abdominal pain This is a 47-year-old male with pertinent history of CAD status post stent, hypertension, mixed hyperlipidemia, erectile dysfunction who presents to the emergency department for evaluation of abdominal discomfort. Patient presented to the ER on 09/01 with abdominal pain. He was noted to have 6 mm calculus along the left ureter with [id number] left-sided hydronephrosis. Patient was discharged on p.o. analgesia. Patient states his symptoms were not relieved with p.o. pain medication and hence he decided to come to the ER. The pain is in the left flank, constant, nonradiating and without any relieving factors. It is associated with nausea and vomiting. Patient states he last had a kidney stone about 5 months ago and he was given medication for it. Is on aspirin and Brilinta for CAD. No chest discomfort, palpitations, shortness of breath, changes in urinary or bowel habits In the emergency department, imaging with moderate left-sided hydronephrosis. Urology was consulted who will evaluate the patient in a.m. Review of Systems Constitutional: Constitutional: Reports lethargy, Reports poor appetite and Reports weakness Cardiovascular: Cardiovascular: Reports no additional cardiovascular complaints Respiratory: Respiratory: Reports no additional respiratory complaints Gastrointestinal: Gastrointestinal: Reports abdominal pain, Reports nausea and Reports vomiting Neurologic: Reports weakness PMFSH Medical History Erectile dysfunction Kidney stones Acute non-ST elevation myocardial infarction (NSTEMI) CAD (coronary atherosclerotic disease) HTN (hypertension) Family History Father No family history of cancer Mother Leukemia Surgical History S/P cardiac cath Social History Household Members: Spouse Housing: House Do you presently have visiting nurse or other home services: No Alcohol intake: never Patient Tobacco Use Status: Never used Tobacco Tobacco use type: Cigarette Smoked in Last 30 Days: No Second Hand Smoke Exposure: No Use of substances other than those prescribed or required for medical reasons: No Advance Directives: No Advance Directives Information Provided: No Nutrition Risks: No Nutritional Risk [facility] service: No Meds Allergies Allergy/AdvReac Type Severity Reaction Status Date / Time No Known Allergies Allergy Verified 09/04/23 15:28 Active Medications: Current Medications Sodium Chloride (Ns) 1,000 mls @ 999 mls/hr IV .Q1H1M ONE Stop: 09/05/23 00:42 Last Admin: 09/04/23 23:56 Dose: 999 mls/hr Home Medications ?Medication ?Instructions ?Recorded ?Confirmed ?Last Taken ?Type ticagrelor 90 mg tablet (Brilinta) 90 mg PO BID 02/12/23 08/20/23 Unknown History Physical Exam Vital Signs and Narrative: Vital Signs: Last Vital Signs Temp 97.8 F 09/04/23 15:25 Pulse 70 09/04/23 15:25 Resp 16 09/04/23 15:25 BP 153/80 H 09/04/23 15:25 Pulse Ox 95 09/04/23 15:25 O2 Del Method Room Air 09/04/23 15:25 BMI result Body Mass Index 31.0 Middle-aged male lying in bed in no distress Neck supple, no JVD Regular rate and rhythm, S1-S2 heard Regular breath sounds bilaterally, no wheezing or crackles appreciated Abdomen with left-sided tenderness, no guarding, no rigidity, no rebound tenderness Patient is awake, alert and oriented to self, place, time and person ; no focal motor deficit Psych: Normal mood No pedal edema Results Labs 09/04/23 16:24 09/04/23 16:24 Labs: Laboratory Results - last 24 hr 09/04/23 09/04/23 16:24 17:20 MCV 86.5 MCH 30.3 MCHC 35.0 RDW 13.5 Plt Count 275 MPV 10.5 Immature Gran % (Auto) 0.6 H Neut % (Auto) 84.6 H Lymph % (Auto) 11.9 L [place] % (Auto) 2.7 Eos % (Auto) 0.1 Baso % (Auto) 0.1 Lymph # (Auto) 1.9 [place] # (Auto) 0.4 Eos # (Auto) 0.0 Baso # (Auto) 0.0 Abs Immat Gran (auto) 0.09 H Absolute Neuts (auto) 13.7 H Absolute Nucleated RBC 0.000 Nucleated RBC % (auto) 0.0 Anion Gap 17 Estim Creat Clear Calc 65.9 Estimated GFR 47 Random Glucose 146 H Calcium 9.9 D Total Bilirubin 0.6 Direct Bilirubin 0.2 AST 24 ALT 39 Alkaline Phosphatase 59 Total Protein 8.1 H Albumin 4.5 Lipase 114 H Urine Color Yellow Urine Appearance Clear Urine pH 6.0 Ur Specific [place] 1.020 Urine Protein Trace Urine Glucose (UA) Negative Urine Ketones Negative Urine Blood Large (3+) H Urine Nitrite Negative Ur Leukocyte Esterase Negative Urine RBC >20 H Urine WBC 0-5 Ur Squamous Epith Cells 0-2 Urine Bacteria None Seen Hyaline Casts 0-2 Imaging Radiologist's Impressions: Impressions Renal Ultrasound 09/04/23 17:00 IMPRESSION: Findings consistent with ongoing obstruction on the left.. Assessment and Plan (1) Left ureteral stone: Status: Acute (2) Hydronephrosis: Status: Acute Plan This is a 47-year-old male with pertinent history of CAD status post stent, hypertension, mixed hyperlipidemia, erectile dysfunction who presents to the emergency department for evaluation of abdominal discomfort. #. Left ureteral stone with hydronephrosis: Will admit patient for IV analgesia. Resuscitating with IV crystalloids. Urology consulted, appreciate assistance. Patient on Flomax #. Reactive leukocytosis. Defer antibiotics #. Acute kidney injury stage I: Monitor creatinine and urine output with crystalloid resuscitation. Avoid Nephrotoxins #. CAD status post stent: Hold antiplatelet agents for possible urological procedure. On high-intensity statin and beta-emmanuel #. Mixed hyperlipidemia: On statin Med rec pending DVT prophylaxis: Mechanical Full code Admit as inpatient and will require two night minimum hospital stay for IV analgesia, monitoring of kidney function (as above), which is not possible in a lesser acute setting. Specialist consult pending Quality Stroke Does the patient have a stroke diagnosis?: No VTE Prior VTE?: No VTE Risk Level:: Medical - moderate - high VTE Device Contraindication: N/A - Device Ordered VTE Drug Contraindication: Treatment Not Indicated
[2023-09-05 00:50] VITALS: BP 136/75; PULSE 86; RESP 14; TEMP 36.7; O2SAT 96
[2023-09-05] MEDS: 0.9 % Sodium Chloride 1,000 ML 999 ML IV (02:17)
[2023-09-05] MEDS: Magnesium Hydrox/Alum Hydrox 30 ML ORAL.SUSP PO (03:51)
--- NOTE | 2023-09-05 04:43 | PC.NURSE ---
pt ambulating to bathroom independently with even and steady gait
--- NOTE | 2023-09-05 05:07 | PC.NURSE ---
raffi dove, pt able to verbalize medications, also had pictures of medication bottles on his phone
[2023-09-05 06:00] VITALS: BP 136/82; PULSE 82; RESP 17; TEMP 36.5; O2SAT 97
[2023-09-05] MEDS: Morphine Sulfate 4 MG/ML CARTRIDGE IVPUSH ×4 (06:08→20:47)
[2023-09-05 06:51] LABS: MANUAL DIFF FLAG NO
[2023-09-05 07:04] LABS: Basophils Percent Auto 0.2 % (0-2); Eosinophils Percent Auto 0.1 % (0-4); Hematocrit 41.3 % (42.0-52.0); Hemoglobin 14.3 g/dl (14.0-18.0); Imm Gran Abs Auto 0.09 X10*3/uL (0.00-0.03); Imm Gran Pct Auto 0.6 % (0.0-0.4); Lymphocytes Absolute Auto 2.3 X10*3/uL (1.2-4.9); Lymphocytes Percent Auto 14.3 % (20-40); Mean Corpuscular HGB Conc 34.6 g/dl (31.0-36.0); Mean Corpuscular Hemoglobin 30.1 pg (27.0-33.0); Mean Corpuscular Volume 86.9 fL (80.0-98.0); Mean Platelet Volume 10.8 fL (9.4-12.4); Monocytes Absolute Auto 1.3 X10*3/uL (0.1-1.2); Monocytes Percent Auto 8.1 % (2-11); Neutrophils Absolute Auto 12.1 x10*3/uL (2.0-8.3); Neutrophils Percent Auto 76.7 % (45-73); Platelet Count 260 X10*3/uL (160-400); Red Blood Count 4.75 X10*6/uL (4.60-5.80); Red Cell Distribution Width 13.5 % (11.0-16.0); White Blood Count 15.7 X10*3/uL (4.8-10.8)
[2023-09-05 07:18] LABS: Blood Urea Nitrogen 28 mg/dL (9-16); Creatinine Clr Calc Pharmacy 74.9; Estimated Glomerular Filt Rate 54; Glucose Random 118 mg/dL (60-115)
--- NOTE | 2023-09-05 07:27 | PM.EVENT ---
Event Note Date of Service: 09/05/23 Event Note: This is a 47-year-old male with pertinent history of CAD status post stent, hypertension, mixed hyperlipidemia, erectile dysfunction who presents to the emergency department for evaluation of abdominal discomfort. Left ureteral stone with hydronephrosis continue IV analgesia. Urology consult spending continue Flomax npo after midnight for urological procedure Reactive leukocytosis Defer antibiotics Acute kidney injury stage I Monitor creatinine and urine output Avoid Nephrotoxins CAD status post stent Hold antiplatelet agents for possible urological procedure. On high-intensity statin and beta-emmanuel Mixed hyperlipidemia On statin DVT prophylaxis: Mechanical Attending Dr. Palacios Full code Admit as inpatient and will require two night minimum hospital stay for IV analgesia, monitoring of kidney function (as above), which is not possible in a lesser acute setting. Specialist consult pending Time Spent With Patient Time: Total time managing care of this patient today ____ minutes.
[2023-09-05 07:32] LABS: Anion Gap 14 (12-20); Calcium 8.3 mg/dL (8.4-10.2); Carbon Dioxide 24 mmol/L (22-29); Chloride 104 mmol/L (96-108); Potassium 3.8 mmol/L (3.3-5.1); Sodium 138 mmol/L (135-145)
[2023-09-05] MEDS: 0.9 % Sodium Chloride Flush 3 ML SYRINGE IVFLUSH ×2 (09:15→17:35)
--- NOTE | 2023-09-05 09:17 | PHA.MEDREC ---
Pharmacy Consult ? Medication Reconciliation Pharmacy has completed the medication reconciliation. spoke with patient to confirm medications. He last took aspirin and Brillinta yesterday as well as his previous discharge medications.
--- NOTE | 2023-09-05 11:17 | MHC.CM.PN ---
PT REPORTS HE LIVES WITH HIS S/0 AND IS INDEPENDENT WITH CARE NO SERVICES OR DME HCP ON FILE PCP: SHERRY FERGUSON DCP: HOME NO SERVICES VIA PRIVATE TRANSPORT
--- NOTE | 2023-09-05 13:15 | PM.UROCN ---
History of Present Illness Consult details Consult date: 09/05/23 Narrative: CC: Left mid ureteric stone with hydronephrosis 47-year-old male Prior history of known 6 mm left kidney stone Presents with abdominal discomfort, left flank discomfort Constant, nonradiating no relieving factors Associated with nausea and vomiting Prior kidney stone Imaging - CT Mild to moderate left-sided hydroureteronephrosis with periureteral nephric and periureteral stranding secondary to a 6 mm calculus along the left proximal ureter. Redemonstrated hyperattenuating focus in the left renal lower pole measuring 1.2 cm, stable. Discussed with the patient Will have stone passage trial. Will add on for intervention tomorrow. Review of Systems Constitutional: Constitutional: Reports as per HPI and Reports no additional constitutional complaints Cardiovascular: Cardiovascular: Reports as per HPI and Reports no additional cardiovascular complaints Respiratory: Respiratory: Reports as per HPI and Reports no additional respiratory complaints Gastrointestinal: Gastrointestinal: Reports as per HPI and Reports no additional gastrointestinal complaints Genitourinary: Genitourinary: Reports as per HPI Musculoskeletal: Musculoskeletal: Reports no additional musculoskeletal complaints and Reports as per HPI Neurologic: Reports system reviewed and no additional complaints, except as documented and Reports as per HPI PMF Past Medical History Medical History Erectile dysfunction Kidney stones Acute non-ST elevation myocardial infarction (NSTEMI) CAD (coronary atherosclerotic disease) HTN (hypertension) Family History Family History Father No family history of cancer Mother Leukemia Surgical History Surgical History S/P cardiac cath Social History Social History Household Members: Spouse Housing: House Do you presently have visiting nurse or other home services: No Alcohol intake: never Patient Tobacco Use Status: Never used Tobacco Tobacco use type: Cigarette Smoked in Last 30 Days: No Second Hand Smoke Exposure: No Use of substances other than those prescribed or required for medical reasons: No Advance Directives: No Advance Directives Information Provided: No Nutrition Risks: No Nutritional Risk service: No Meds Allergies Allergy/AdvReac Type Severity Reaction Status Date / Time No Known Allergies Allergy Verified 09/04/23 15:28 Active Medications: Current Medications Acetaminophen (Acetaminophen 325 Mg Tablet) 650 mg PO Q6H PRN PRN Reason: Pain, Mild (Pain Scale 1-3) Acetaminophen (Acetaminophen Supp 650 Mg Supp.Rect) 650 mg MS Q6H PRN PRN Reason: Pain, Mild (Pain Scale 1-3) Acetaminophen (Acetaminophen 325 Mg Tablet) 975 mg PO TID [facility] Ketorolac Tromethamine (Ketorolac Tromethamine 15 Mg/Ml Vial) 15 mg IV Q6H [facility] Melatonin (Melatonin 3 Mg Tablet) 6 mg PO BEDTIME PRN PRN Reason: Insomnia Morphine Sulfate (Morphine Sulfate 4 Mg/Ml Cartridge) 4 mg IVPUSH Q4H PRN; Protocol PRN Reason: Pain, Severe (Pain Scale 7-10) Last Admin: 09/05/23 13:14 Dose: 4 mg Ondansetron HCl (Ondansetron Hcl 4 Mg/2 Ml Vial) 4 mg IVPUSH Q8H PRN PRN Reason: Nausea and Vomiting Oxycodone HCl (Oxycodone Hcl Immed Release 5 Mg Tablet) 5 mg PO Q4H PRN PRN Reason: Breakthrough Pain Sodium Chloride (0.9 % Sodium Chloride Flush 3 Ml Syringe) 3 ml IVFLUSH QSHIFT [facility] Last Admin: 09/05/23 09:15 Dose: 3 ml Home Medications ?Medication ?Instructions ?Recorded ?Confirmed ?Last Taken ?Type ticagrelor 90 mg tablet (Brilinta) 90 mg PO BID 02/12/23 09/05/23 09/04/23 History Physical Exam Vital Signs: Vital Signs: Last Vital Signs Temp 97.7 F 09/05/23 06:00 Pulse 82 09/05/23 06:00 Resp 17 09/05/23 06:00 BP 136/82 09/05/23 06:00 Pulse Ox 97 09/05/23 06:00 O2 Del Method Room Air 09/05/23 06:00 BMI result Body Mass Index 31.0 Const: General: cooperative, healthy appearing, comfortable and no acute distress Orientation/consciousness: patient oriented x3 HEENT: Face and sinus: Yes normal facial exam Mouth: moist mucous membranes Neck: Neck: Yes normal visual inspection, Yes full ROM and Yes trachea midline Chest: Chest palpation & inspection: normal inspection of the chest Resp: Effort & Inspection: normal respiratory effort, able to speak in complete sentences and no respiratory distress GI: Inspection: Yes normal to inspection Back/Spine/Pelvis: Cervical Spine: normal cervical lordosis Thoracic/Lumbar Spine: thoracic and lumbar spine normal to inspection Skin: General skin exam: no rashes or lesions noted Neuro: General: patient oriented x3, tone normal and moves all extremities Extrem: General: Yes normal to inspection and Yes capillary refill normal Results Labs 09/05/23 05:52 09/05/23 05:52 Labs: Abnormal lab results 09/04/23 09/04/23 09/05/23 Range/Units 16:24 17:20 05:52 WBC 16.2 H 15.7 H (4.8-10.8) X10*3/uL Hct 41.3 L (42.0-52.0) % Immature Gran % (Auto) 0.6 H 0.6 H (0.0-0.4) % Neut % (Auto) 84.6 H 76.7 H (45-73) % Lymph % (Auto) 11.9 L 14.3 L (20-40) % [place] # (Auto) 1.3 H (0.1-1.2) X10*3/uL Abs Immat Gran (auto) 0.09 H 0.09 H (0.00-0.03) X10*3/uL Absolute Neuts (auto) 13.7 H 12.1 H (2.0-8.3) x10*3/uL BUN 33 H 28 H (9-16) mg/dL Creatinine 1.59 H (0.5-1.4) mg/dL Random Glucose 146 H 118 H (60-115) mg/dL Calcium 8.3 L D (8.4-10.2) mg/dL Total Protein 8.1 H (6.5-8.0) g/dL Lipase 114 H (8-78) U/L Urine Blood Large (3+) H (Negative) Urine RBC >20 H (0-2) /HPF Short CBC 09/04/23 09/05/23 Range/Units 16:24 05:52 WBC 16.2 H 15.7 H (4.8-10.8) X10*3/uL Hgb 16.4 14.3 (14.0-18.0) g/dl Hct 46.9 41.3 L (42.0-52.0) % Plt Count 275 260 (160-400) X10*3/uL BMP 09/04/23 09/05/23 16:24 05:52 Sodium 140 138 Potassium 4.9 3.8 D Chloride 104 104 Carbon Dioxide 24 24 BUN 33 H 28 H Creatinine 1.59 H 1.40 Calcium 9.9 D 8.3 L D Liver Function 09/04/23 Range/Units 16:24 Total Bilirubin 0.6 (0.0-1.0) mg/dL Direct Bilirubin 0.2 (0.0-0.5) mg/dL AST 24 (5-37) U/L ALT 39 (0-40) U/L Alkaline Phosphatase 59 (39-117) U/L Albumin 4.5 (3.5-5.0) g/dL Urine 09/04/23 Range/Units 17:20 Urine Color Yellow Urine Appearance Clear Urine pH 6.0 (5.0-9.0) Ur Specific [place] 1.020 (1.005-1.025) Urine Protein Trace (Neg-Trace) mg/dL Urine Glucose (UA) Negative (Negative) mg/dL All other labs normal. Assessment and Plan (1) Hydronephrosis: Status: Acute (2) Left ureteral stone: Status: Acute Plan 24 hour observation Add on for procedure tomorrow. Cystoscopy, left cystoscopy, left stent placement. Procedures Date of Service Date of Service: 09/05/23
[2023-09-05] MEDS: Ketorolac Tromethamine 15 MG/ML VIAL IVPUSH ×2 (13:46→20:43)
[2023-09-05 14:12] VITALS: BP 134/75
[2023-09-05] MEDS: Doxazosin Mesylate 2 MG TABLET 4 MG PO (14:12)
[2023-09-05 14:15] VITALS: BP 134/75; PULSE 95; RESP 17; TEMP 37.2; O2SAT 94
[2023-09-05] MEDS: predniSONE 20 MG TABLET PO (14:17)
[2023-09-05] MEDS: Acetaminophen 325 MG TABLET 975 MG PO ×2 (14:17→20:43)
[2023-09-05 22:07] VITALS: BP 111/63; PULSE 93; RESP 18; TEMP 36.6; O2SAT 94
[2023-09-06] VITALS (11 sets, daily range): BP systolic 119–140; BP diastolic 59–81; PULSE 79–95; RESP 14–20; TEMP 36.1–36.7; O2SAT 93–96; BMI 30.9
--- NOTE | 2023-09-06 | ECG_ITS ---
Test Reason : cp Blood Pressure : / mmHG Vent. Rate : 096 BPM Atrial Rate : 096 BPM P-R Int : 116 ms QRS Dur : 092 ms QT Int : 338 ms P-R-T Axes : 058 050 013 degrees QTc Int : 427 ms Normal sinus rhythm Normal ECG When compared with ECG of 27-SEP-2022 10:27, Nonspecific T wave abnormality now evident in Lateral leads Referred By: Marian Cabrera Electronically Signed By:NITO FORD
[2023-09-06] MEDS: Morphine Sulfate 4 MG/ML CARTRIDGE IVPUSH ×3 (01:04→20:26)
[2023-09-06] MEDS: 0.9 % Sodium Chloride Flush 3 ML SYRINGE IVFLUSH ×4 (01:05→20:27)
[2023-09-06] MEDS: Ketorolac Tromethamine 15 MG/ML VIAL IVPUSH ×3 (02:34→20:25)
[2023-09-06] MEDS: predniSONE 20 MG TABLET PO (07:38)
[2023-09-06] MEDS: Acetaminophen 325 MG TABLET 975 MG PO (07:38)
[2023-09-06] MEDS: Doxazosin Mesylate 2 MG TABLET 4 MG PO (07:39)
--- NOTE | 2023-09-06 09:08 | HO.ANESPROP2 ---
HPI - Anesthesia Eval Consult details Narrative: 47 yo M admitted with 6mm stone in ,eft ureter with mild to moderate hydronephrosis. PMF Active Problems Active Problems: All Active Problems Hydronephrosis (Acute) Left ureteral stone (Acute) Renal colic on left side (Acute) Erectile disorder (Acute) Kidney stones (Acute) Flank pain (Acute) HTN (hypertension) (Acute) Hyperlipidemia (Acute) CAD (coronary atherosclerotic disease) (Acute) S/P cardiac cath (Acute) Past Medical History Medical History Erectile dysfunction Kidney stones Acute non-ST elevation myocardial infarction (NSTEMI) CAD (coronary atherosclerotic disease) HTN (hypertension) Family History Family History Father No family history of cancer Mother Leukemia Family history of problems with anesthesia: No Surgical History Surgical History S/P cardiac cath History of Problems with Anesthesia: No (never had surgery before) Social History Social History Household Members: Spouse Housing: House Do you presently have visiting nurse or other home services: No Alcohol intake: never Patient Tobacco Use Status: Never used Tobacco Tobacco use type: Cigarette Second Hand Smoke Exposure: No service: No Meds Allergies Allergy/AdvReac Type Severity Reaction Status Date / Time No Known Allergies Allergy Verified 09/04/23 15:28 Active Medications: Current Medications Acetaminophen (Acetaminophen 325 Mg Tablet) 650 mg PO Q6H PRN PRN Reason: Pain, Mild (Pain Scale 1-3) Acetaminophen (Acetaminophen Supp 650 Mg Supp.Rect) 650 mg [place] Q6H PRN PRN Reason: Pain, Mild (Pain Scale 1-3) Acetaminophen (Acetaminophen 325 Mg Tablet) 975 mg PO TID SONG Last Admin: 09/06/23 07:38 Dose: 975 mg Doxazosin Mesylate (Doxazosin Mesylate 2 Mg Tablet) 4 mg PO DAILY [facility]; Protocol Last Admin: 09/06/23 07:39 Dose: 4 mg Levofloxacin (Levaquin) 500 mg in 100 mls @ 100 mls/hr IV PREOP ONE Stop: 09/06/23 09:50 Ketorolac Tromethamine (Ketorolac Tromethamine 15 Mg/Ml Vial) 15 mg IVPUSH Q6H [facility] Last Admin: 09/06/23 07:39 Dose: 15 mg Melatonin (Melatonin 3 Mg Tablet) 6 mg PO BEDTIME PRN PRN Reason: Insomnia Morphine Sulfate (Morphine Sulfate 4 Mg/Ml Cartridge) 4 mg IVPUSH Q4H PRN; Protocol PRN Reason: Pain, Severe (Pain Scale 7-10) Last Admin: 09/06/23 07:50 Dose: 4 mg Ondansetron HCl (Ondansetron Hcl 4 Mg/2 Ml Vial) 4 mg IVPUSH Q8H PRN PRN Reason: Nausea and Vomiting Oxycodone HCl (Oxycodone Hcl Immed Release 5 Mg Tablet) 5 mg PO Q4H PRN PRN Reason: Breakthrough Pain Prednisone (Prednisone 20 Mg Tablet) 20 mg PO DAILY [facility] Last Admin: 09/06/23 07:38 Dose: 20 mg Sodium Chloride (0.9 % Sodium Chloride Flush 3 Ml Syringe) 3 ml IVFLUSH QSHIFT [facility] Last Admin: 09/06/23 07:39 Dose: 3 ml Home Medications ?Medication ?Instructions ?Recorded ?Confirmed ?Last Taken ?Type ticagrelor 90 mg tablet (Brilinta) 90 mg PO BID 02/12/23 09/05/23 09/04/23 History Exam Exam Date and Time: September 06, 2023 0912 Height,Weight and Vital Signs: Height 5 ft 10 in Weight 97.8 kg Last Vital Signs Temp 97.0 F 09/06/23 07:18 Pulse 80 09/06/23 07:18 Resp 14 09/06/23 07:18 BP 139/76 09/06/23 07:39 Pulse Ox 94 09/06/23 07:18 O2 Del Method Room Air 09/06/23 07:18 Pertinent Lab Results Pertinent Lab Results: Laboratory Tests 09/04/23 09/04/23 09/05/23 16:24 17:20 05:52 WBC 16.2 H 15.7 H RBC 5.42 4.75 Hgb 16.4 14.3 Hct 46.9 41.3 L MCV 86.5 86.9 MCH 30.3 30.1 MCHC 35.0 34.6 RDW 13.5 13.5 Plt Count 275 260 MPV 10.5 10.8 Immature Gran % (Auto) 0.6 H 0.6 H Neut % (Auto) 84.6 H 76.7 H Lymph % (Auto) 11.9 L 14.3 L [place] % (Auto) 2.7 8.1 Eos % (Auto) 0.1 0.1 Baso % (Auto) 0.1 0.2 Lymph # (Auto) 1.9 2.3 [place] # (Auto) 0.4 1.3 H Eos # (Auto) 0.0 0.0 Baso # (Auto) 0.0 0.0 Abs Immat Gran (auto) 0.09 H 0.09 H Absolute Neuts (auto) 13.7 H 12.1 H Absolute Nucleated RBC 0.000 0.000 Nucleated RBC % (auto) 0.0 0.0 Sodium 140 138 Potassium 4.9 3.8 D Chloride 104 104 Carbon Dioxide 24 24 Anion Gap 17 14 BUN 33 H 28 H Creatinine 1.59 H 1.40 Estim Creat Clear Calc 65.9 74.9 Estimated GFR 47 54 Random Glucose 146 H 118 H Calcium 9.9 D 8.3 L D Total Bilirubin 0.6 Direct Bilirubin 0.2 AST 24 ALT 39 Alkaline Phosphatase 59 Total Protein 8.1 H Albumin 4.5 Lipase 114 H Urine Color Yellow Urine Appearance Clear Urine pH 6.0 Ur Specific [place] 1.020 Urine Protein Trace Urine Glucose (UA) Negative Urine Ketones Negative Urine Blood Large (3+) H Urine Nitrite Negative Ur Leukocyte Esterase Negative Urine RBC >20 H Urine WBC 0-5 Ur Squamous Epith Cells 0-2 Urine Bacteria None Seen Hyaline Casts 0-2 Airway Mallampati Class: I TM Dist: >3cm Neck ROM: Full Loose/Missing/Broken Teeth: Yes (broken tooth #22) Heart: S1S2 Lungs: CTAB Assessment and Plan Assessment Anesthesia Assessment: Anesthesia Plan Discussed and Chart Reviewed Final Anesthetic Review Family History of Problems with Anesthesia: No History of Problems with Anesthesia: No (never had surgery before) NPO: Yes ASA Class: II Final Preanesthetic Review: No Changes in Pt Med Stat, Meds/Allgs Chart Reviewed, Consent Obtained/Reviewed and Anes Risks/Benef Reviewed Patient Risk: Low Procedure Risk: Low Anesthetic Plan Anesthetic Plan: GA and Agree w/ Assess. and Plan Disposition: Standard PACU
--- NOTE | 2023-09-06 09:20 | MHC.SHP ---
Pre-Procedural Eval Section A - 24 Hr Update-Section A only Date of Service: 09/06/23 The patient is an INPATIENT: Yes Changes since office visit: No Cold of Flu in the past 2 weeks, No New Medical Problems, No Changes in Medication and No Patient answered all questions The patient has been examined within 24 hours of the surgical procedure. The History & Physical has been completed within 30 days and I have reviewed it.: Yes Section B - Complete if H&P > 30 days Chief Complaint: abdominal pain Allergies: Allergies Allergy/AdvReac Type Severity Reaction Status Date / Time No Known Allergies Allergy Verified 09/04/23 15:28 Review of Systems Sugical H&P ROS: Negative: Constitution, Cardiovascular, Respiratory, Neurological, Psychiatric, Hem-Onc, Allergic/Immunologic, Gastrointestinal, Genitourinary, Musculoskeletal, Integumentary, Endocrine and Eyes/Ears/Nose/Throat Exam Surgical H&P Exam: Normal: HEENT, Normal: Heart, Normal: Lungs, Normal: Extremities, Normal: Abdomen, Normal: Skin and Normal: Neurological Plan Diagnosis/Plan: Unchanged (Cysto, left retrograde, stent placement) I have reviewed the history and physical and performed a pertinent physical examination on my patient. No changes have occurred unless specified. Time Spent With Patient Time: Total time managing care of this patient today ____ minutes.
--- NOTE | 2023-09-06 09:51 | W.PM.OPN ---
Operative Note Operative Note Date of Service: 09/06/23 Narrative: PreOperative Diagnosis: Left mid ureteric stone Post Operative Diagnosis: Left mid ureteric stone with hydronephrosis Procedure: Cystoscopy, left retrograde, left stent placement Surgeon: Dr Salvador Escobar Anesthesia: Sedation Indications for procedure: Obstructing stone Procedure: After informed consent was verified the patient was brought to the operating room and placed in a supine position. Anesthesia was administered per protocol. The patient was placed in modified dorsal lithotomy position and prepped and draped in a sterile fashion. A safety pause time-out was performed. Laterality of procedure and antibiotics were confirmed, appropriate imaging was available A 22 Khmer cystoscope was introduced per urethra. No abnormality was noted of urethra or bladder. Both ureteric orifices were seen in a normal position. The left ureter was cannulated with an open ended catheter and a retrograde examination was performed. Obstructing stones seen junction between proximal and mid ureter . A Sensor guidewire was placed under fluoroscopy and a good coil was seen within the renal pelvis. A 6 Khmer by 24 cm double J stent was advanced over the wire and up to the level of the renal pelvis under fluoroscopic and direct visualization. The stent was seen with appropriate coil within the renal pelvis and in the bladder after deployment. The patient tolerated the procedure well and was transferred in a stable condition to the recovery area. Pathology: Drains: Stent as above
[2023-09-06] MEDS: Phenazopyridine HCL 100 MG TABLET PO (10:10)
--- NOTE | 2023-09-06 13:09 | HO.PM.IMPN ---
Subjective Subjective Date of Service: 09/06/23 Review of Systems Follow up hydronephrosis s/p cystoscopy and left stent placement Physical Exam Vital Signs: Vital Signs: Last Vital Signs Temp 97.6 F 09/06/23 10:14 Pulse 79 09/06/23 10:14 Resp 16 09/06/23 10:14 BP 140/79 H 09/06/23 10:14 Pulse Ox 95 09/06/23 10:14 O2 Del Method Room Air 09/06/23 10:14 O2 Flow Rate 5 09/06/23 09:59 BMI result Body Mass Index 30.9 Appearing in no acute distress lung sounds are clear to auscultation heart regular rate rhythm, clear S1, S2 positive bowel sounds, abdomen is soft, nontender neuro patient is alert x3, no focal deficits Objective Data Active Medications Acetaminophen (Acetaminophen 325 Mg Tablet) 650 mg PO Q6H PRN PRN Reason: Pain, Mild (Pain Scale 1-3) Acetaminophen (Acetaminophen Supp 650 Mg Supp.Rect) 650 mg VA Q6H PRN PRN Reason: Pain, Mild (Pain Scale 1-3) Acetaminophen (Acetaminophen 325 Mg Tablet) 975 mg PO TID [facility] Last Admin: 09/06/23 07:38 Dose: 975 mg Documented By: HANNAH Doxazosin Mesylate (Doxazosin Mesylate 2 Mg Tablet) 4 mg PO DAILY [facility]; Protocol Last Admin: 09/06/23 07:39 Dose: 4 mg Documented By: HANNAH Fentanyl (Fentanyl Citrate/Pf 100 Mcg/2 Ml Vial) 50 mcg IVPUSH Q5M PRN; Protocol PRN Reason: Pain, Severe (Pain Scale 7-10) Stop: 09/06/23 15:43 Haloperidol Lactate (Haloperidol Lactate 5 Mg/Ml Vial) 1 mg IVPUSH ONCE PRN PRN Reason: Nausea and Vomiting Ketorolac Tromethamine (Ketorolac Tromethamine 15 Mg/Ml Vial) 15 mg IVPUSH Q6H [facility] Last Admin: 09/06/23 07:39 Dose: 15 mg Documented By: HANNAH Melatonin (Melatonin 3 Mg Tablet) 6 mg PO BEDTIME PRN PRN Reason: Insomnia Morphine Sulfate (Morphine Sulfate 4 Mg/Ml Cartridge) 4 mg IVPUSH Q4H PRN; Protocol PRN Reason: Pain, Severe (Pain Scale 7-10) Last Admin: 09/06/23 07:50 Dose: 4 mg Documented By: HANNAH Ondansetron HCl (Ondansetron Hcl 4 Mg/2 Ml Vial) 4 mg IVPUSH Q8H PRN PRN Reason: Nausea and Vomiting Oxycodone HCl (Oxycodone Hcl Immed Release 5 Mg Tablet) 5 mg PO Q4H PRN PRN Reason: Breakthrough Pain Prednisone (Prednisone 20 Mg Tablet) 20 mg PO DAILY [facility] Last Admin: 09/06/23 07:38 Dose: 20 mg Documented By: HANNAH Sodium Chloride (0.9 % Sodium Chloride Flush 3 Ml Syringe) 3 ml IVFLUSH QSHIFT [facility] Last Admin: 09/06/23 07:39 Dose: 3 ml Documented By: HANNAH Labs 09/05/23 05:52 09/05/23 05:52 Assessment and Plan (1) Hydronephrosis: Status: Acute Plan This is a 47-year-old male with pertinent history of CAD status post stent, hypertension, mixed hyperlipidemia, erectile dysfunction who presents to the emergency department for evaluation of abdominal discomfort. Left ureteral stone with hydronephrosis continue IV analgesia. continue Flomax s/p Cystoscopy, left retrograde, left stent placement today Reactive leukocytosis Defer antibiotics Acute kidney injury stage I Monitor creatinine and urine output Avoid Nephrotoxins CAD status post stent On high-intensity statin and beta-emmanuel Mixed hyperlipidemia On statin DVT prophylaxis: Mechanical Attending Dr. Palacios Full code continue hospital stay for IV analgesia, monitoring of kidney function (as above), which is not possible in a lesser acute setting. Specialist consult pending Quality Stroke Does the patient have a stroke diagnosis?: No VTE Prior VTE?: No VTE Risk Level:: Medical - moderate - high VTE Device Contraindication: N/A - Device Ordered VTE Drug Contraindication: Treatment Not Indicated
--- NOTE | 2023-09-06 14:41 | MHC.CM.PN ---
PT NOT YET MEDICALLY CLEARED DCP: HOME NO SERVICES VIA PRIVATE TRANSPORT
[2023-09-06 15:37] LABS: Troponin-I High Sensitivity < 2.7 ng/L (<3.5-35.0)
[2023-09-06] MEDS: Ticagrelor 90 MG TABLET PO (20:25)
[2023-09-06] MEDS: Atorvastatin Calcium 80 MG TABLET PO (20:25)
[2023-09-06] MEDS: Metoprolol Tartrate 25 MG TABLET PO (20:25)
[2023-09-07] MEDS: Ketorolac Tromethamine 15 MG/ML VIAL IVPUSH (01:53)
[2023-09-07] MEDS: Melatonin 3 MG TABLET 6 MG PO (02:15)
[2023-09-07 03:26] VITALS: BP 149/76; PULSE 70; RESP 16; TEMP 36; O2SAT 95
--- NOTE | 2023-09-07 07:11 | PM.DS ---
DS: Providers Provider Date of Service: 09/07/23 Date of admission: 09/05/23 00:30 Primary care physician: Jennifer Evans NP Consults: 09/05/23 01:19 Consult to Urology Routine Consulting Provider: Salvador Escobar Reason for consultation: Left ureteral stone with hydronephrosis DS: Diagnosis Discharge Diagnosis (1) Hydronephrosis: Status: Acute DS: Summary Hospital Course Hospital Course: History and physical as per admitting provider. This is a 47-year-old male with pertinent history of CAD status post stent, hypertension, mixed hyperlipidemia, erectile dysfunction who presents to the emergency department for evaluation of abdominal discomfort. Patient presented to the ER on 09/01 with abdominal pain. He was noted to have 6 mm calculus along the left ureter with [id number] left-sided hydronephrosis. Patient was discharged on p.o. analgesia. Patient states his symptoms were not relieved with p.o. pain medication and hence he decided to come to the ER. The pain is in the left flank, constant, nonradiating and without any relieving factors. It is associated with nausea and vomiting. Patient states he last had a kidney stone about 5 months ago and he was given medication for it. Is on aspirin and Brilinta for CAD. No chest discomfort, palpitations, shortness of breath, changes in urinary or bowel habits. In the emergency department, imaging with moderate left-sided hydronephrosis. Urology was consulted who will evaluate the patient in a.m. 47-year-old man treated for left ureteral stone with hydronephrosis. He is status post cystoscopy, left retrograde and left stent placement. He is continued on Flomax. He did have an episode of reactive leukocytosis but antibiotics were deferred. He also had acute kidney injury that resolved with IV fluids Coronary artery disease. Continue statin and beta-emmanuel Hyperlipidemia continue statin Time Attestation Discharge Coordination Time (in mins): 35 Quality: Safe Use of Opioids Does Pt have an Active Cancer Diagnosis on the Problem List?: No Quality: Stroke Does the patient have a stroke diagnosis?: No Physical Exam Vital Signs: Vital Signs: Last Vital Signs Temp 96.8 F 09/07/23 03:26 Pulse 70 09/07/23 03:26 Resp 16 09/07/23 03:26 BP 149/76 H 09/07/23 03:26 Pulse Ox 95 09/07/23 03:26 O2 Del Method Room Air 09/07/23 03:26 O2 Flow Rate 5 09/06/23 09:59 BMI result Body Mass Index 30.9 Appearing in no acute distress head is normocephalic atraumatic eyes pupils are PERRLA sclera is anicteric mouth throat mucous membranes are intact and moist neck is supple no lymphadenopathy, no JVD noted lung sounds are clear to auscultation heart regular rate rhythm, clear S1, S2 positive bowel sounds, abdomen is soft, nontender neuro patient is alert x3, no focal deficits DS: Data Data Completed and Pending Labs on day of discharge: Laboratory Results - last 24 hr 09/06/23 14:50 Troponin I High Sens < 2.7 D Discharge Plan Discharge Anticipated Discharge Date/Time: 09/07/23 07:01 Patient Disposition: Home, Self-Care Discharge Diagnosis: Left ureteral stone with hydronephrosis DIONI Referrals: Salvador Escobar MD [Physician] - 2 Weeks Jennifer Evans NP [Primary Care Provider] - 1 Week Discharge Medications: Continued atorvastatin 80 mg Tablet 80 mg PO BEDTIME Qty: 30 0RF amlodipine 5 mg Tablet 5 mg PO DAILY Qty: 30 0RF Protocol: Hold for SBP< HOLD for SBP < : 90 aspirin 81 mg Tablet,Delayed Release (Dr/Ec) 81 mg PO DAILY Qty: 30 0RF nitroglycerin [Nitrostat] 0.4 mg Tablet, Sublingual 0.4 mg sublingual Q5MX3 PRN (Reason: Chest Pain) Qty: 30 0RF metoprolol tartrate 25 mg Tablet 25 mg PO BID Qty: 30 0RF Protocol: Hold for SBP/HR < HOLD for SBP < : 90 HOLD for HR < : 60 oxycodone 5 mg tablet 5 mg PO Q4H PRN (Reason: severe pain (scale score 7-10)) Qty: 10 0RF Rx Instructions: Partial Fill upon patient request. tamsulosin [Flomax] 0.4 mg capsule 0.4 mg PO DAILY Qty: 14 0RF ezetimibe [Zetia] 10 mg tablet 10 mg PO DAILY Qty: 90 3RF Rx Instructions: Cholesterol lowering agent. Take along with Atorvastatin Brilinta 90 mg tablet 90 mg PO BID Discontinued prednisone 20 mg tablet 40 mg PO DAILY Qty: 10 0RF Discharge Orders: Discharge Order (Routine); Ordered 09/07/23 Ordered By: Marian Cabrera Diet: Advance to usual diet Activity on Discharge: As tolerated Stand Alone Forms: Patient Portal Discharge page Print Language: Mongolian Care Plan Goals: Follow-up with urologist for stent removal Health Concerns: Left ureteral stone with hydronephrosis DIONI Plan of Treatment: Follow-up with primary care provider as needed Take all medications as prescribed Assessment: See discharge summary
[2023-09-07 07:39] VITALS: BP 139/82; PULSE 68; RESP 14; TEMP 36.6; O2SAT 95
[2023-09-07 08:01] VITALS: BP 139/82; PULSE 68
[2023-09-07] MEDS: Ticagrelor 90 MG TABLET PO (08:01)
[2023-09-07] MEDS: Metoprolol Tartrate 25 MG TABLET PO (08:01)
[2023-09-07 08:02] VITALS: BP 139/82
[2023-09-07] MEDS: Tamsulosin HCL 0.4 MG CAPSULE PO (08:02)
[2023-09-07] MEDS: Ezetimibe 10 MG TABLET PO (08:02)
[2023-09-07] MEDS: amLODIPine Besylate 5 MG TABLET PO (08:02)
[2023-09-07] MEDS: predniSONE 20 MG TABLET PO (08:02)
[2023-09-07] MEDS: Doxazosin Mesylate 2 MG TABLET 4 MG PO (08:02)
[2023-09-07] MEDS: 0.9 % Sodium Chloride Flush 3 ML SYRINGE IVFLUSH (08:03)
--- NOTE | 2023-09-07 09:23 | MHC.CM.PN ---
Patient is discharged to home self-care. Transportation home has been set up with [facility]. A voucher has been provided. He will transport @ 9:45am. The Patient will go to the discharge lounge to wait for the shuttle. A gift card for the coffee shop has been given to the patient.
[2023-09-07 09:38] VITALS: O2SAT 98
== END 2023-09-07 10:13 | disposition home or self-care (01) | DRG 465 ==
LOC: HO.ED 23:35 → HO.EDOVER 09-05 00:33 → HO.S3 09-05 23:39
PROVIDERS: Physician Assistant Medical; Urology; Admitting Provider Student in an Organized Health Care Education/Training Program; Emergency Provider Internal Medicine; PCP Nurse Practitioner Primary Care; Visit Provider Nurse Practitioner Acute Care
PROC: 0T778DZ Dilation of Left Ureter with Intraluminal Device, Via Natural or Artificial Opening Endoscopic (ICD-10-PCS; principal; 2023-09-06 09:00)
DX: N13.2 Hydronephrosis with renal and ureteral calculous obstruction (principal); N17.9 Acute kidney failure, unspecified; E78.2 Mixed hyperlipidemia; I10 Essential (primary) hypertension; I25.10 Atherosclerotic heart disease of native coronary artery without angina pectoris; Z95.1 Presence of aortocoronary bypass graft; Z87.442 Personal history of urinary calculi; Z79.82 Long term (current) use of aspirin; Z79.899 Other long term (current) drug therapy
CPT/HCPCS: 36415; 76775; 80048; 80076; 81001; 83690; 84484; 85025; 93005; 99285; C1758; C1769; C2617; J1100; J1885; J1956; J2270; J2405; J2704; J3010; Q9967

== ENCOUNTER 2023-09-05 00:30 | Outpatient (BNV) | payer MEDICAID, SELFPAY | END 2023-09-06 14:15 | PROVIDERS: Admitting Provider Student in an Organized Health Care Education/Training Program; Emergency Provider Internal Medicine; PCP Nurse Practitioner Primary Care; Visit Provider Internal Medicine | DX: R07.9 Chest pain, unspecified (principal) | CPT/HCPCS: 93010 ==

== ENCOUNTER → 2023-09-05 00:30 | Outpatient (BNV) | payer MEDICAID, SELFPAY | PROVIDERS: Admitting Provider Student in an Organized Health Care Education/Training Program; Emergency Provider Internal Medicine; PCP Nurse Practitioner Primary Care; Visit Provider Student in an Organized Health Care Education/Training Program | DX: N20.1 Calculus of ureter (principal); N13.30 Unspecified hydronephrosis | CPT/HCPCS: 99223; 99232; 99239; 99499 ==

== ENCOUNTER → 2023-09-05 00:30 | Outpatient (BNV) | payer MEDICAID, SELFPAY | PROVIDERS: Admitting Provider Student in an Organized Health Care Education/Training Program; Emergency Provider Internal Medicine; PCP Nurse Practitioner Primary Care; Visit Provider Urology | DX: N20.1 Calculus of ureter (principal) | CPT/HCPCS: 52332; 74420; 99222 ==

== ENCOUNTER 2023-09-24 13:40 | Outpatient (REF) | payer MEDICAID, SELFPAY ==
--- NOTE | ~2023-09-24 | XR_ITS ---
EXAMINATION: XR ABDOMEN KUB CLINICAL INDICATION: Calculus of ureter COMPARISON: Ultrasound renal from 09/04/2023, CT abdomen from 09/02/2023 TECHNIQUE: AP view of the abdomen. FINDINGS: Interval placement of a left-sided double-J nephroureteral stent. Rounded peripherally calcified focus in the left renal interpolar/upper pole region corresponds to atherosclerotic calcifications better appreciated on prior cross-sectional imaging. Previously identified left proximal ureteral calculus is no longer visualized. No calcification overlying the right renal shadow or bilateral ureteral paths. Bowel gas is nonobstructive. Fecal loading of the ascending colon. Osseous structures are intact. Elevation the right hemidiaphragm. Soft tissues are unremarkable. XR/XR KUB IMPRESSION: 1. Interval placement of a left-sided double-J nephroureteral stent. 2. Rounded peripherally calcified focus in the left renal interpolar/upper pole region corresponds to atherosclerotic calcifications better appreciated on prior cross-sectional imaging. 3. Previously identified left proximal ureteral calculus is no longer visualized. 4. No calcification overlying the right renal shadow or bilateral ureteral paths. 5. Bowel gas is nonobstructive.
== END 2023-09-24 13:41 | disposition home or self-care (01) ==
LOC: HO.XRAY 13:40
PROVIDERS: PCP Nurse Practitioner Primary Care; Visit Provider Urology
DX: N20.1 Calculus of ureter (principal)
CPT/HCPCS: 74018

== ENCOUNTER 2023-09-28 10:22 | Day surgery (SDC) | payer MEDICAID, SELFPAY ==
[2023-09-24 08:19] VITALS: BMI 30.6
--- NOTE | 2023-09-27 09:24 | HO.ANESPROP2 ---
Documented by User: Judith Kelly NP 09/27/23 09:33 HPI - Anesthesia Eval Consult details Narrative: 47yo M for Left Cystoscopy, Ureteroroscopy, Retro, Laser,with stent removal s/p cysto stent 08/2023 with GA-LMA 5 (during [facility] admit with stone, hydronephrosis) Follows [facility] cardiology for CAD. Per 08/[address] [facility] cardiology office visit: CAD status post acute coronary syndrome in September 2022 status post drug-eluting stent to bifurcation of OM1 and OM2. He has diffuse coronary disease and moderate proximal and distal RCA stenosis although with no current symptoms of angina. Aspirin, Brillinta - ok to hold and proceed per cardiology workload. [facility] Active Problems Active Problems: All Active Problems Erectile disorder (Acute) Flank pain (Acute) Hyperlipidemia (Acute) HTN (hypertension) (Acute) CAD (coronary atherosclerotic disease) (Acute) S/P cardiac cath (Acute) Past Medical History Medical History Erectile dysfunction Kidney stones CAD (coronary atherosclerotic disease) Acute non-ST elevation myocardial infarction (NSTEMI) HTN (hypertension) Family History Family History Father No family history of cancer Mother Leukemia Family history of problems with anesthesia: No Surgical History Surgical History History of coronary artery stent placement S/P cardiac cath History of Problems with Anesthesia: No (never had surgery before) Social History Social History Household Members: Spouse Housing: House Do you presently have visiting nurse or other home services: No Alcohol intake: never Patient Tobacco Use Status: Never used Tobacco Tobacco use type: Cigarette Second Hand Smoke Exposure: No Are you DNR?: No Advance Directives: No Advance Directives Information Provided: Yes Nutrition Risks: No Nutritional Risk service: No Meds Allergies Allergy/AdvReac Type Severity Reaction Status Date / Time No Known Allergies Allergy Verified 09/04/23 15:28 Home Medications ?Medication ?Instructions ?Recorded ?Confirmed ?Last Taken ?Type ticagrelor 90 mg tablet (Brilinta) 90 mg PO BID 02/12/23 09/05/23 09/21/23 History Exam Height,Weight and Vital Signs: Height 5 ft 10 in Weight 96.616 kg Pertinent Lab Results Pertinent Lab Results: Laboratory Tests 09/05/23 05:52 WBC 15.7 H Hgb 14.3 Hct 41.3 L Plt Count 260 Sodium 138 Potassium 3.8 D Chloride 104 Carbon Dioxide 24 BUN 28 H Creatinine 1.40 Narrative Narrative: EKG 08/2023 Vent. Rate : 096 BPM Atrial Rate : 096 BPM P-R Int : 116 ms QRS Dur : 092 ms QT Int : 338 ms P-R-T Axes : 058 050 013 degrees QTc Int : 427 ms Normal sinus rhythm Normal ECG When compared with ECG of 27-SEP-2022 10:27, Nonspecific T wave abnormality now evident in Lateral leads NM cardiolite stress test 04/2023 Impression: 1. Normal myocardial perfusion 2. Gated LVEF is 52% 3. Transient ischemic dilatation not present Stress EKG is positive for ischemia, clinical correlation suggested Assessment and Plan Assessment Anesthesia Assessment: Chart Reviewed Final Anesthetic Review Family History of Problems with Anesthesia: No History of Problems with Anesthesia: No (never had surgery before) Documented by User: Padmini Diaz MD 09/28/23 11:24 [facility] Past Medical History Medical History Erectile dysfunction Kidney stones CAD (coronary atherosclerotic disease) Acute non-ST elevation myocardial infarction (NSTEMI) HTN (hypertension) Family History Family History Father No family history of cancer Mother Leukemia Surgical History Surgical History History of coronary artery stent placement S/P cardiac cath Social History Social History Household Members: Spouse Housing: House Do you presently have visiting nurse or other home services: No Alcohol intake: never Patient Tobacco Use Status: Never used Tobacco Tobacco use type: Cigarette Second Hand Smoke Exposure: No Are you DNR?: No Advance Directives: No Advance Directives Information Provided: Yes Nutrition Risks: No Nutritional Risk service: No Meds Allergies Allergy/AdvReac Type Severity Reaction Status Date / Time No Known Allergies Allergy Verified 09/04/23 15:28 Home Medications ?Medication ?Instructions ?Recorded ?Confirmed ?Last Taken ?Type ticagrelor 90 mg tablet (Brilinta) 90 mg PO BID 02/12/23 09/05/23 09/21/23 History Exam Airway Mallampati Class: III TM Dist: >3cm Neck ROM: Full Loose/Missing/Broken Teeth: No Heart: RRR Lungs: CTA Assessment and Plan Assessment Anesthesia Assessment: Anesthesia Plan Discussed Final Anesthetic Review NPO: Yes ASA Class: III Final Preanesthetic Review: Meds/Allgs Chart Reviewed, Consent Obtained/Reviewed and Anes Risks/Benef Reviewed Patient Risk: Intermediate Procedure Risk: Low Anesthetic Plan Anesthetic Plan: GA Disposition: Standard PACU
[2023-09-28] VITALS (7 sets, daily range): BP systolic 105–150; BP diastolic 60–89; PULSE 68–85; RESP 14–18; TEMP 36.3–37; O2SAT 96–98; BMI 30.9
--- NOTE | ~2023-09-28 | FL_ITS ---
EXAMINATION: XR FLUOROSCOPY WITH IMAGES CLINICAL INFORMATION: Cystoscopy, ureteroscopy, retro, laser left. COMPARISON: None available. TECHNIQUE: Fluoroscopy Supervised By: Dr. Neno Gu. Fluoroscopy Time: 40.6 seconds. Cumulative Dose: 6.7033 mGy. DAP: 2.9158 Gy-cm2. Images: 2. FINDINGS: Intraoperative fluoroscopy and spot films were performed during a procedure in the OR. A double-J stent is present on the left with the proximal end in the renal pelvis and the distal end in the bladder. Some contrast media is seen in nondilated left upper tract. Please correlate with Dr. Neno Gu's report for complete details. FL/FL guidance in OR IMPRESSION: Intraoperative fluoroscopy and spot films were obtained. Please see Dr. Neno Gu's report for complete details.
[2023-09-28] MEDS: Lactated Ringers 1,000 ML 100 ML IVCONT (10:42)
--- NOTE | 2023-09-28 11:29 | MHC.SHP ---
Pre-Procedural Eval Section A - 24 Hr Update-Section A only Date of Service: 09/28/23 The patient is an INPATIENT: No The patient has been examined within 24 hours of the surgical procedure. The History & Physical has been completed within 30 days and I have reviewed it.: Yes Section B - Complete if H&P > 30 days Chief Complaint: Calculus of ureter Allergies: Allergies Allergy/AdvReac Type Severity Reaction Status Date / Time No Known Allergies Allergy Verified 09/04/23 15:28 Plan Diagnosis/Plan: Unchanged I have reviewed the history and physical and performed a pertinent physical examination on my patient. No changes have occurred unless specified. Plan for Cystoscopy, Left ureteroscopy, laser lithotripsy, possible ureteral stent exchange versus stent removal. Risks discussed included but not limited to, possible need to repeat procedure if stone is not completely fragmented, Irritative voiding symptoms, bladder spasms, urgency, blood in urine. Time Spent With Patient Time: Total time managing care of this patient today ____ minutes.
--- NOTE | 2023-09-28 12:56 | W.PM.OPN ---
Operative Note Operative Note Date of Service: 09/28/23 Narrative: PreOperative Diagnosis:?? Left obstructing ureteral stone status post left ureteral stent Post Operative Diagnosis:?? Left obstructing ureteral stone status post left ureteral stent Procedure: Cystoscopy, Left ureteroscopy laser lithotripsy stent exchange, size 6 Cambodian by 26 cm Surgeon:?Dr Neno Gu Anesthesia:? General Indications for procedure: Here for stone fragmentation. Procedure: After informed consent was verified the patient was brought to the operating placed on the OR table in supine position.? General Anesthesia was administered per protocol.? The patient was placed in lithotomy position, prepped and draped in the usual sterile fashion.? Safety pause time-out and side of surgery confirmed.? Antibiotics confirmed. A 22 Cambodian cystoscope was inserted transurethrally, the bulbous urethra was within normal limits. The prostatic urethra was nonobstructive. The bladder was visualized.? Both ureteric orifices were in normal position. The ureteral stent was curled in the bladder. The distal end of the ureteral stent was grasped with the flexible grasping forceps. The stent was pulled retrograde through the urethra and a guidewire was passed through the stent, the stent was removed. The cystoscope was then removed, leaving the guidewire in place. The guidewire was used as the safety and was attached to the draping. The cystoscope was replaced transurethrally into the bladder. A 2nd guidewire was passed through the left ureter. The cystoscope was removed. The semi rigid ureteroscope was passed over the 2nd guidewire transurethrally to the level of the stone in the mid to proximal left ureter. Laser lithotripsy of the stone was done using the 365 fiber with a combination of dusting and pulsating settings. There was good fragmentation of the stone. The 0 degree basket was used to remove a sample of stone fragments, which were tiny and sent for analysis. The ureteroscope was removed. The cystoscope was passed over the safety guidewire. An open-ended ureteral catheter was passed over the guidewire the guidewire was removed and retrograde was done the renal pelvis and calyces were not dilated. The Sureglide guidewire was passed through the ureteral catheter. A? 6 Cambodian by 26 cm stent was placed into the ureter and renal pelvis under a combination of fluoroscopy and direct visualization. The bladder was emptied.? The rigid cystoscope was removed. ? The patient tolerated the procedure well and was brought to the recovery room in stable condition. Complications: None Drains: Ureteral stent as dictated above
[2023-09-28] MEDS: Phenazopyridine HCL 200 MG TABLET PO (13:20)
[2023-10-05 20:02] LABS: Stone Source KIDNEY STONE
== END 2023-09-28 14:14 | disposition home or self-care (01) ==
PROVIDERS: PCP Nurse Practitioner Primary Care; Visit Provider Urology
PROC: (CPT 52356; principal; 2023-09-28 13:00)
DX: N20.1 Calculus of ureter (principal); Z96.0 Presence of urogenital implants; Z87.442 Personal history of urinary calculi; N52.9 Male erectile dysfunction, unspecified; I10 Essential (primary) hypertension; I25.10 Atherosclerotic heart disease of native coronary artery without angina pectoris; Z95.5 Presence of coronary angioplasty implant and graft; I25.2 Old myocardial infarction; Z79.02 Long term (current) use of antithrombotics/antiplatelets
CPT/HCPCS: 52356; 82365; 88300; C1726; C1758; C1769; C2617; J0690; J2250; J2704; J3010; Q9967

== ENCOUNTER → 2023-09-28 10:22 | Outpatient (BNV) | payer MEDICAID, SELFPAY | PROVIDERS: PCP Nurse Practitioner Primary Care; Visit Provider Urology | DX: N20.1 Calculus of ureter (principal) | CPT/HCPCS: 52356 ==

== ENCOUNTER 2023-10-11 12:40 | Outpatient (AMB) | payer MEDICAID, SELFPAY ==
--- NOTE | 2023-10-11 13:16 | A.OFFVIS_ITS ---
Intake Visit Reasons: cysto/stent removal Post op Intake Note: Patient is present for Cystoscopy and stent removal post op Urology Medication:phenazopyridine,oxycodone-acetaminophen,tamsulosin Antibiotic Allergy:none Blood Thinner:aspirin Lot:[id number] Exp:06/13/2026 Assistant Maintenance Manager Required: No Allergies No Known Allergies Allergy (Verified 10/11/23 13:20) HPI Comments Details: 10/11/23--Here for stent removal. s/p left ureteroscopy laser lithotripsy. Stent removed without difficulty. Plan discussed 24 hr urine. Review of chart: 08/20/23--Adam is here for follow-up. He had a CT scan and 24 hour urine collection completed. I have reviewed the CT imaging results is a 5 mm stone in the left kidneys no hydronephrosis. Discussed 24 hour urine results: Total volume 2.1 L, Calcium 59 mg; Oxalate 55 mg, Sodium 196, Citrate 623 mg. Instructed on importance of fluid intake, Low oxalate diet, low sodium diet. I have discussed treatment options of shockwave lithotripsy versus conservative management by monitoring kidney stone at 5 mm with risk of the stone getting larger moving and causing obstruction or infection in the urinary tract. Discussed risks to include but not limited to, blood in the urine, bruising to the skin, kidney hematoma, possible need for another procedure if a stone fragment obstructs the ureter while passing, possible need to repeat procedure if stone is not completely fragmented. The patient agrees for left ESWL. He is on blood thinners and follows with cardiology due to coronary artery disease history. We will need cardiac clearance prior. In addition Cialis 5 mg was prescribed for daily use the patient has not had a penile Doppler testing done as yet and will need the appointment rescheduled. Schedule left ESWL we will need cardiac clearance prior. Cialis 5 mg daily prescribed. The patient is prescribed nitroglycerin sublingual med states he has not needed to use this in over a year. Vitamin B6 100 mg prescribed. 06/04/23--Adam is here for evaluation due to erectile dysfunction and kidney stones. The patient states since he was young he noticed that he problems having an erection. The patient states he has have children he states that he has used a ring at base of his penis to assist in keeping the penis erect. Comorbidity coronary artery disease I have discussed with him the the physiology of the erection includes good blood flow to the penis as well as a venous outlet blockage to keep the penis engorged. Discussed for evaluation with Doppler the penis. Review of blood work free and total testosterone--within normal limits Adam states that he was in [place] and had an attack of left flank pain who was told that kidney stones he states this is the 1st episode. I have discussed at length diet modification to decrease risk of forming more kidney stones. I have discussed low oxalate diet and specific foods to avoid including certain green leafy vegetables, chocalate, nuts, tea, beets, rubarb; low sodium, decreased use of animal protein and the importance of hydration drinking up to 2-2.5 liters of fluids and use of adding lemon to water to increase citrate in the diet. A pamphlet is also provided today. -plan Doppler ultrasound for penis blood flow Cialis 5 mg daily. 24 hour urine collection. Diet modification discussed. CT stone protocol [facility] Medical History Erectile dysfunction Kidney stones CAD (coronary atherosclerotic disease) Acute non-ST elevation myocardial infarction (NSTEMI) HTN (hypertension) Surgical History History of coronary artery stent placement S/P cardiac cath Family History Father No family history of cancer Mother Leukemia Social History Household Members: Spouse Housing: House Do you presently have visiting nurse or other home services: No Alcohol intake: never Patient Tobacco Use Status: Never used Tobacco Tobacco use type: Cigarette Second Hand Smoke Exposure: No service: No Office Procedures Cystoscopy Consent Discussed risk and benefit or proposed procedure with the patient. Information consent for procedure given to the patient. Discussed technical aspects, risks, benefits and alternatives in full. Addressed all of the patient's questions and concerns regarding the procedure. The patient demonstrated knowledge and understanding. They wish to proceed with this procedure. Preparation The patient was prepped in the usual manner. A mannequin sander and finisher was present and in the room. Genitalia was prepped with betadine solution in a sterile manner. Lidocaine Jelly 2% was placed into the urethra and 16Fr flexible Olympus cystoscope was inserted into the meatus after adequate lubrication. Procedure Time out per protocol performed. Bladder Inspection Cystoscopy findings: mild edema ureteral orifice which is expected, distal end of ureteral stent visualized. The grasping forceps were used and the stent was removed without difficulty. [id number] with stent removal DISPOSABLE SCOPE URO-G FLEXIBLE SCOPE Procedure code (CPT) selection complete Office Meds lidocaine HCl 2 % mucosal jelly in applicator Performing Provider: Neno Gu MD [facility] Administered by: Femi Rutherford LPN on 10/11/23 13:38 Dose Route Admin Location Dispensed Lot Number Expiration Date ND Archivist Political History 10 mL intra-urethral 20 mL naproxen 500 mg tablet Performing Provider: Neno Gu MD Performing Location: [facility] [place] [facility] Administered by: Femi Rutherford LPN on 10/11/23 13:38 Dose Route Admin Location Dispensed Lot Number Expiration Date NDC Archivist Political History 500 mg PO 1 tab ciprofloxacin HCl 500 mg tablet Performing Provider: Neno Gu MD Performing Location: [facility] [facility] Administered by: Femi Rutherford LPN on 10/11/23 13:38 Dose Route Admin Location Dispensed Lot Number Expiration Date NDC Archivist Political History 500 mg PO 1 tab Results AMB Urinalysis, Automated UA Leukoctes 500 Lyn/uL Last Edit by JEREMY Keller on 10/11/23 13:33 UA Nitrite Positive Last Edit by JEREMY Keller on 10/11/23 13:33 UA Urobilinogen 8 mg/dL Last Edit by JEREMY Keller on 10/11/23 13:33 UA Protein 100 mg/dL Last Edit by JEREMY Keller on 10/11/23 13:33 UA pH 5.0 Last Edit by JEREMY Keller on 10/11/23 13:33 UA Blood 200 Piero/uL Last Edit by JEREMY Keller on 10/11/23 13:33 UA Specific [place] 1.020 Last Edit by JEREMY Keller on 10/11/23 13: 33 UA Ketone Positive Last Edit by JEREMY Keller on 10/11/23 13:33 UA Bilirubin 4 mg/dL Last Edit by JEREMY Keller on 10/11/23 13:33 UA Glucose 250 mg/dL Last Edit by JEREMY Keller on 10/11/23 13:33 Results Reviewed Results Reviewed: Laboratory Last Values Urine pH (Auto) 5.0 10/11/23 13:32 Specific [place] (Auto) 1.020 10/11/23 13:32 Urine Protein (Auto) 100 mg/dL 10/11/23 13:32 Glucose (UA)(Auto) 250 mg/dL 10/11/23 13:32 Urine Ketones (Auto) Positive 10/11/23 13:32 Urine Blood (Auto) 200 Piero/uL 10/11/23 13:32 Urine Nitrite (Auto) Positive 10/11/23 13:32 Urine Bilirubin (Auto) 4 mg/dL 10/11/23 13:32 Urine Urobilinogen (Auto) 8 mg/dL 10/11/23 13:32 Leukocyte Esterase (Auto) 500 Lyn/uL 10/11/23 13:32 Date of Service: 09/02/23 EXAMINATION: CT ABDOMEN AND PELVIS WITHOUT CONTRAST CLINICAL INFORMATION: Renal stone worsening left flank pain COMPARISON: CT abdomen from 07/30/2023 TECHNIQUE: Multidetector volumetric imaging was performed from the superior aspect of the liver through the pubic symphysis. Sagittal and coronal reformatted images were obtained on the technologist's workstation. This CT examination was performed using dose optimization techniques as appropriate, variously including the following: *Automated exposure control *Adjustment of mA and/or kV according to patient size (this includes techniques or standardized protocols for targeted exams where dose is matched to indication/reason for exam; i.e. extremities or head) *Use of iterative reconstruction technique DLP: 707 mGy-cm FINDINGS: LUNG BASES: Bibasilar atelectasis, left greater than right. No pneumothorax. No large pleural effusion. Coronary artery calcifications are noted. LIVER, GALLBLADDER, AND BILIARY TREE: Liver is enlarged measuring 19.8 cm. Decreased hepatic attenuation suggesting hepatic steatosis. No focal hepatic lesion or biliary ductal dilatation is present. The gallbladder is unremarkable with no evidence of radiopaque gallstones, gallbladder wall thickening, or obvious pericholecystic inflammatory changes. PANCREAS: Unremarkable. SPLEEN: Unremarkable. ADRENAL GLANDS: Unremarkable. KIDNEYS AND URETERS: Mild to moderate left-sided hydroureteronephrosis with periureteral nephric and periureteral stranding secondary to a 6 mm calculus along the left proximal ureter. Redemonstrated hyperattenuating focus in the left renal lower pole measuring 1.2 cm, stable. No right-sided nephrolithiasis or hydronephrosis. BLADDER: Mild urinary bladder wall thickening measuring 6 mm which may reflect element of cystitis versus bladder outlet obstruction. GASTROINTESTINAL TRACT: Small hiatal hernia. The small and large bowel are unremarkable. The appendix is unremarkable. ABDOMINAL WALL: Small hiatal hernia. LYMPH NODES: No enlarged lymph nodes per size criteria. VASCULAR: Abdominal aorta is nonaneurysmal. Atherosclerotic calcifications abdominal aorta is branches. PELVIC VISCERA: Prostate measures 3.7 cm with punctate calcifications. OSSEOUS STRUCTURES: Grade 1 anterolisthesis of L2 on L3, L3 on L4, L4 on L5. IMPRESSION: 1. Mild to moderate left-sided hydroureteronephrosis with periureteral nephric and periureteral stranding secondary to a 6 mm calculus along the left proximal ureter. 2. Redemonstrated hyperattenuating focus in the left renal lower pole measuring 1.2 cm stable. 3. Mild urinary bladder wall thickening measuring 6 mm which may reflect element of cystitis versus bladder outlet obstruction. 4. Enlarged liver with decreased hepatic attenuation suggesting hepatic steatosis. 5. Small hiatal hernia. Assessment & Plan Assessment & Plan (1) Kidney stones: Code(s): N20.0 - Calculus of kidney Category: Medical (2) Erectile disorder: Code(s): N52.9 - Male erectile dysfunction, unspecified Category: Medical Plan 24 hr urine. FU in 3 months Cialis 5 mg daily prescribed. Vitamin B6 100 mg prescribed. Orders: Orders AMB Urinalysis Automated 10/11/23 Z13.9 - Encounter for screening, unspecified AMB Cystoscopy 10/11/23 R10.9 - Unspecified abdominal pain, N20.0 - Calculus of kidney Patient Instructions: The patient had an opportunity to ask questions regarding treatment plan. The patient expressed understanding and agreement with the above treatment plan. The patient is aware they should contact our office by phone for worsening of their current condition or the appearance of new symptoms. Compliance is encouraged with any medications and followup testing that is ordered. It is a privilege to be allowed the opportunity to participate in the urologic care of your patient. If you have any questions or concerns regarding treatment for the above conditions please do not hesitate to contact me. The office telephone contact is [phone]. This note is constructed in part using voice recognition software. While every effort has been made to ensure accuracy silk screen printer machine errors may have been included. Yours sincerely, Neno Gu MD Coding Level of Care Code Procedure Only Diagnoses Kidney stones N20.0 Erectile disorder N52.9 CPT Codes Cystoscopy - CPT: 42583-[id number] with stent removal ([id number])
== END 2023-10-11 14:13 | disposition home or self-care (01) ==
PROVIDERS: PCP Nurse Practitioner Primary Care; Referring Provider Nurse Practitioner Primary Care; Visit Provider Urology
DX: N20.0 Calculus of kidney (principal); Z96.0 Presence of urogenital implants
CPT/HCPCS: 52310

== ENCOUNTER → 2023-10-11 12:40 | Outpatient (BNVA) | payer MEDICAID, SELFPAY | PROVIDERS: PCP Nurse Practitioner Primary Care; Visit Provider Urology | DX: Z48.816 Encounter for surgical aftercare following surgery on the genitourinary system (principal); N52.9 Male erectile dysfunction, unspecified; Z87.442 Personal history of urinary calculi | CPT/HCPCS: 52310; 81003 ==

== ENCOUNTER → 2024-01-21 10:58 | Outpatient (REF) | payer MEDICAID, SELFPAY ==
--- NOTE | ~2024-01-21 | XR_ITS ---
EXAMINATION: XR LEFT HAND 3 VIEWS CLINICAL INFORMATION: Atraumatic hand pain. COMPARISON: None available. TECHNIQUE: PA, lateral, and oblique views of the left hand. FINDINGS: The soft tissues are normal. No fracture. Alignment is anatomic. Joint space narrowing and osteophyte formation is seen within the first carpometacarpal joint space consistent with severe osteoarthritis. No erosions or soft tissue calcifications. XR/XR hand LT 2V IMPRESSION: Severe osteoarthritis of the first carpometacarpal joint space. Electronically signed by: Davon James MD 03/28/2024 11:08 AM TAHIRA
--- NOTE | 2024-01-21 11:02 | CA_ITS ---
Transthoracic Echocardiogram Patient (Last, First, Middle): Adam Enciso, Gender: Male Date of : 1975 Age: 48 Procedure Date: 01/21/2024 Procedure Type: Transthoracic Echocardiogram Location: OP Height: 177.8 cm Weight: 97.52 kg BSA: 2.15 m2 Heart Rate: bpm BP: 140 / 90 mmHg Channeler: TO Referring MD: Socorro SPARKS Electronic Health Records Specialist: Jose Aparicio MD Symptoms: I25.10 - Atherosclerotic heart disease of [place] coronary artery without... Study Quality: Adequate w contrast ECG Rhythm: Sinus Conclusions: - 1. Mildly reduced LV ejection fraction 45-50% 2. Normal cardiac valvular Dopplers 3. No gross pericardial effusion Findings Procedure Information Contrast agent, definity, is being given per protocol without apparent complications. Left Ventricle Normal left ventricular cavity size. There is normal left ventricular wall thickness. The left ventricular systolic function is mildly decreased. The visually estimated ejection fraction is between 45-50%. Spectral Doppler is indicative of a normal filling pattern. Right Ventricle Normal right ventricular cavity size and systolic function. Atria Both atria are normal in size. There is no evidence of interatrial shunt. Aortic Valve Normal aortic valve structure and function. There is no aortic valve stenosis. There is no aortic valve regurgitation. Mitral Valve Normal mitral valve structure and function. There is trace mitral valve regurgitation. There is no mitral valve stenosis. Pulmonic Valve The pulmonic valve is likely normal. Tricuspid Valve Normal tricuspid valve structure. Tricuspid regurgitation envelope is inadequate for calculation of right ventricular systolic pressure. Normal right atrial pressure. Great Vessels All visible segments of the aorta are normal in size. The pulmonary artery was not well visualized. There is no dilatation of the ascending aorta measuring 3.30 cm. There is no evidence of plaque in the aorta. Venous The inferior vena cava is normal in size and collapses greater than 50% with inspiration. Pericardium/Pleural There is no evidence of pericardial effusion. Prior Study Comparison No significant change compared to prior study dated: 09/26/2022. Measurements 2D Linear Measurements IVSd: 1.12 0.6-0.9/0.6-1.0 cm LVIDd: 4.77 3.9-5.3/4.2-5.9 cm LVIDd Index: 2.22 2.4-3.2/2.2-3.1 cm/m2 LVIDs: 3.49 2.0-3.6 cm LVPWd: 0.96 0.7-1.1 cm LA Diam: 3.70 2.7-3.8/3.0-4.0 cm LAIDs Index: 1.72 1.5-2.3 cm/m2 LV Mass: 221.40 67-162/88-224 g LV Mass Index: 102.98 43-95/49-115 g/m2 LVOT Diam: 2.50 3.0+(-)1.3 cm 2D Systolic Function EF 4C: 44.40 >55% EF 2C: 45.00 >55% EF BiP: 47.10 >55% Mitral Valve MV Pk E: 0.45 MV PK A: 0.42 MV Decel Time: 219.00 E/A: 1.10 E'Lateral: 5.22 E'Medial: 4.90 E/E' Med: 9.30 E/E' Lat: 8.70 PHT: 64.00 MVA PHT: 3.44 Decel Cottle: 2.07 Aortic Valve AoV Pk Ferny: 0.96 AoV Mn Ferny: 0.66 AoV VTI: 0.19 AoV Pk Grad: 4.00 Aov Mn Grad: 2.00 HENRI Cont.VTI: 3.51 LVOT LVOT Pk Ferny: 0.66 LVOT Mn Ferny: 0.42 LVOT VTI: 0.14 LVOT Pk Grad: 2.00 LVOT Mn Grad: 1.00 LVOT Diam: 2.50 LVOT Area: 4.91 Diastolic Function MV Pk E: 0.45 MV Pk A: 0.42 E/A: 1.10 E'Medial: 4.90 E/E' Med: 9.30 E' Laterial: 5.22 E/E' Lat: 8.70 Right Ventricle TAPSE (mm): 22.40 TVS' Ferny: 11.40 Tricuspid Valve RA Press: 3.00 Great Vessels Aorta Sinus of Valsalva: 3.94 2.0-3.5 cm Ao Asc: 3.30 2.1-3.4 cm Ao Arch: 2.90 Updated in Other Vendor System with Status of Final Jose Aparicio MD electronically signed on 01/22/2024 12:27:10 PM with status of Final
== END ==
LOC: HO.CARD 10:58
PROVIDERS: Absent Provider Nurse Practitioner Primary Care; PCP Nurse Practitioner Primary Care; Visit Provider Nurse Practitioner Family
DX: M79.642 Pain in left hand (principal); I25.10 Atherosclerotic heart disease of native coronary artery without angina pectoris
CPT/HCPCS: 73120; 93306; Q9957

== ENCOUNTER → 2024-01-21 11:02 | Outpatient (BNV) | payer MEDICAID, SELFPAY | PROVIDERS: Absent Provider Nurse Practitioner Primary Care; PCP Nurse Practitioner Primary Care; Visit Provider Internal Medicine Cardiovascular Disease | DX: I25.10 Atherosclerotic heart disease of native coronary artery without angina pectoris (principal) | CPT/HCPCS: 93306 ==

== ENCOUNTER 2024-02-11 15:14 | Outpatient (AMB) | payer MEDICAID, SELFPAY ==
--- NOTE | 2024-02-11 15:11 | A.OFFVIS_ITS ---
Intake Visit Reasons: 3m/[facility]ol[facility] Intake Note: Patient is present for 3M/[facility] Urology Medication:PYRIDIUM,PERCOCET, TAMSULOSIN Antibiotic Allergy:NONE Blood Thinner:ASPIRIN Acute Care Physical Therapist Required: No Allergies No Known Allergies Allergy (Verified 02/11/24 15:12) Medication List - Last Reconciled 02/12/24 by Neno Gu MD amlodipine 5 mg See Protocol PO DAILY aspirin 81 mg PO DAILY atorvastatin 80 mg PO BEDTIME ezetimibe (Zetia) 10 mg PO DAILY metoprolol tartrate 25 mg See Protocol PO BID nitroglycerin (Nitrostat) 0.4 mg sublingual Q5MX3 PRN tamsulosin (Flomax) 0.4 mg PO DAILY ticagrelor (Brilinta) 60 mg PO BID 90 days HPI Comments Details: 02/11/24--Discussed 24 hour urine results: Total volume 1.52 L, Calcium 173 mg ; Oxalate 36 mg, Sodium 178, Citrate 536 mg. Instructed on importance of fluid intake, decrease animal protein, low sodium diet. FU one year US. Adam states he is still concerned about his erections and wants to reschedule penile doppler. Review of chart: 10/11/23--Here for stent removal. s/p left ureteroscopy laser lithotripsy. Stent removed without difficulty. Plan discussed 24 hr urine. 08/20/23--Adam is here for follow-up. He had a CT scan and 24 hour urine collection completed. I have reviewed the CT imaging results is a 5 mm stone in the left kidneys no hydronephrosis. Discussed 24 hour urine results: Total volume 2.1 L, Calcium 59 mg; Oxalate 55 mg, Sodium 196, Citrate 623 mg. Instructed on importance of fluid intake, Low oxalate diet, low sodium diet. I have discussed treatment options of shockwave lithotripsy versus conservative management by monitoring kidney stone at 5 mm with risk of the stone getting larger moving and causing obstruction or infection in the urinary tract. Discussed risks to include but not limited to, blood in the urine, bruising to the skin, kidney hematoma, possible need for another procedure if a stone fragment obstructs the ureter while passing, possible need to repeat procedure if stone is not completely fragmented. The patient agrees for left ESWL. He is on blood thinners and follows with cardiology due to coronary artery disease history. We will need cardiac clearance prior. In addition Cialis 5 mg was prescribed for daily use the patient has not had a penile Doppler testing done as yet and will need the appointment rescheduled. Schedule left ESWL we will need cardiac clearance prior. Cialis 5 mg daily prescribed. The patient is prescribed nitroglycerin sublingual med states he has not needed to use this in over a year. Vitamin B6 100 mg prescribed. 06/04/23--Adam is here for evaluation due to erectile dysfunction and kidney stones. The patient states since he was young he noticed that he problems having an erection. The patient states he has have children he states that he has used a ring at base of his penis to assist in keeping the penis erect. Comorbidity coronary artery disease I have discussed with him the the physiology of the erection includes good blood flow to the penis as well as a venous outlet blockage to keep the penis engorged. Discussed for evaluation with Doppler the penis. Review of blood work free and total testosterone--within normal limits Adam states that he was in [place] and had an attack of left flank pain who was told that kidney stones he states this is the 1st episode. I have discussed at length diet modification to decrease risk of forming more kidney stones. I have discussed low oxalate diet and specific foods to avoid including certain green leafy vegetables, chocalate, nuts, tea, beets, rubarb; low sodium, decreased use of animal protein and the importance of hydration drinking up to 2-2.5 liters of fluids and use of adding lemon to water to increase citrate in the diet. A pamphlet is also provided today. -plan Doppler ultrasound for penis blood flow Cialis 5 mg daily. 24 hour urine collection. Diet modification discussed. CT stone protocol [facility] Medical History Erectile dysfunction Kidney stones CAD (coronary atherosclerotic disease) Acute non-ST elevation myocardial infarction (NSTEMI) HTN (hypertension) Surgical History History of coronary artery stent placement S/P cardiac cath Family History Father No family history of cancer Mother Leukemia Social History Household Members: Spouse Housing: House Do you presently have visiting nurse or other home services: No Alcohol intake: never Patient Tobacco Use Status: Never used Tobacco Tobacco use type: Cigarette Second Hand Smoke Exposure: No service: No Review of Systems Const All systems reviewed & are unremarkable except as noted in HPI and below Reports no additional complaints Eyes Reports no additional complaints ENT Reports no additional complaints Card Reports no additional complaints Resp Reports no additional complaints GI Reports no additional complaints Reports as per HPI Musc Reports no additional complaints Skin/Breast Reports system reviewed and no additional complaints, except as documented Neuro Reports no additional complaints Psych Reports no additional complaints Endo Reports no additional complaints Elliot/Lymph Reports no additional complaints Aller/Immun Reports no additional complaints Telehealth Telehealth Telehealth Platform: [employer] Location of provider rendering services: practice address Location of patient: address on file Patient Identification confirmed using: Name, : Yes Telehealth method: video Patient verbally consented to treatment: Yes Patient verbally consented to billing insurance company: Yes Patient informed of any privacy concerns related to visit: Yes Results Reviewed Results Reviewed: Date of Service: 09/02/23 EXAMINATION: CT ABDOMEN AND PELVIS WITHOUT CONTRAST CLINICAL INFORMATION: Renal stone worsening left flank pain COMPARISON: CT abdomen from 07/30/2023 TECHNIQUE: Multidetector volumetric imaging was performed from the superior aspect of the liver through the pubic symphysis. Sagittal and coronal reformatted images were obtained on the technologist's workstation. This CT examination was performed using dose optimization techniques as appropriate, variously including the following: *Automated exposure control *Adjustment of mA and/or kV according to patient size (this includes techniques or standardized protocols for targeted exams where dose is matched to indication/reason for exam; i.e. extremities or head) *Use of iterative reconstruction technique DLP: 707 mGy-cm FINDINGS: LUNG BASES: Bibasilar atelectasis, left greater than right. No pneumothorax. No large pleural effusion. Coronary artery calcifications are noted. LIVER, GALLBLADDER, AND BILIARY TREE: Liver is enlarged measuring 19.8 cm. Decreased hepatic attenuation suggesting hepatic steatosis. No focal hepatic lesion or biliary ductal dilatation is present. The gallbladder is unremarkable with no evidence of radiopaque gallstones, gallbladder wall thickening, or obvious pericholecystic inflammatory changes. PANCREAS: Unremarkable. SPLEEN: Unremarkable. ADRENAL GLANDS: Unremarkable. KIDNEYS AND URETERS: Mild to moderate left-sided hydroureteronephrosis with periureteral nephric and periureteral stranding secondary to a 6 mm calculus along the left proximal ureter. Redemonstrated hyperattenuating focus in the left renal lower pole measuring 1.2 cm, stable. No right-sided nephrolithiasis or hydronephrosis. BLADDER: Mild urinary bladder wall thickening measuring 6 mm which may reflect element of cystitis versus bladder outlet obstruction. GASTROINTESTINAL TRACT: Small hiatal hernia. The small and large bowel are unremarkable. The appendix is unremarkable. ABDOMINAL WALL: Small hiatal hernia. LYMPH NODES: No enlarged lymph nodes per size criteria. VASCULAR: Abdominal aorta is nonaneurysmal. Atherosclerotic calcifications abdominal aorta is branches. PELVIC VISCERA: Prostate measures 3.7 cm with punctate calcifications. OSSEOUS STRUCTURES: Grade 1 anterolisthesis of L2 on L3, L3 on L4, L4 on L5. IMPRESSION: 1. Mild to moderate left-sided hydroureteronephrosis with periureteral nephric and periureteral stranding secondary to a 6 mm calculus along the left proximal ureter. 2. Redemonstrated hyperattenuating focus in the left renal lower pole measuring 1.2 cm stable. 3. Mild urinary bladder wall thickening measuring 6 mm which may reflect element of cystitis versus bladder outlet obstruction. 4. Enlarged liver with decreased hepatic attenuation suggesting hepatic steatosis. 5. Small hiatal hernia. Assessment & Plan Assessment & Plan (1) Erectile disorder: Code(s): N52.9 - Male erectile dysfunction, unspecified Category: Medical (2) Kidney stones, calcium oxalate: Code(s): N20.0 - Calculus of kidney Category: Medical Plan Penile doppler to be arranged with AUTO BRAKE TECHNICIAN and US department. Monitor kidney stones. Orders: Orders US renal BI 10 Months N20.0 - Calculus of kidney Patient Instructions: The patient had an opportunity to ask questions regarding treatment plan. The patient expressed understanding and agreement with the above treatment plan. The patient is aware they should contact our office by phone for worsening of their current condition or the appearance of new symptoms. Compliance is encouraged with any medications and followup testing that is ordered. It is a privilege to be allowed the opportunity to participate in the urologic care of your patient. If you have any questions or concerns regarding treatment for the above conditions please do not hesitate to contact me. The office telephone contact is [phone]. This note is constructed in part using voice recognition software. While every effort has been made to ensure accuracy metallurgical laboratory assistant errors may have been included. Yours sincerely, Neno Gu MD Coding Level of Care Code Tele Est Pt Level 4 (17575) Diagnoses Erectile disorder N52.9 Kidney stones, calcium oxalate N20.0
== END 2024-02-11 16:29 | disposition home or self-care (01) ==
LOC: HO.HUSH 15:14
PROVIDERS: PCP Nurse Practitioner Primary Care; Visit Provider Urology
DX: N52.9 Male erectile dysfunction, unspecified (principal); N20.0 Calculus of kidney
CPT/HCPCS: 99214

== ENCOUNTER → 2024-02-11 15:14 | Outpatient (BNVA) | payer MEDICAID, SELFPAY | PROVIDERS: PCP Nurse Practitioner Primary Care; Visit Provider Urology ==

== ENCOUNTER 2024-02-25 10:38 | Outpatient (AMB) | payer MEDICAID, SELFPAY ==
--- NOTE | 2024-02-25 10:47 | A.OFFVIS_ITS ---
Vital Signs 02/25/24 10:48 Height 5 ft 10 in Weight 211 lb 10.3 oz BMI 30.4 BP 132/88 Blood Pressure Location Lt brachial Position Sitting Pulse 92 Intake Visit Reasons: 6m follow up Intake Note: 6 month follow-up feeling good Air Twister Winder Required: No Allergies No Known Allergies Allergy (Verified 02/11/24 15:12) Medication List - Last Reconciled 02/25/24 by Jose Aparicio MD amlodipine 5 mg See Protocol PO DAILY aspirin 81 mg PO DAILY atorvastatin 80 mg PO BEDTIME ezetimibe (Zetia) 10 mg PO DAILY nitroglycerin (Nitrostat) 0.4 mg sublingual Q5MX3 PRN tamsulosin (Flomax) 0.4 mg PO DAILY ticagrelor (Brilinta) 60 mg PO BID 90 days HPI Comments Details: Adam comes for follow-up. He has been doing well from cardiac perspective. No exertional symptoms. Although he ran out of metoprolol about a month ago. Thought that he would come to the office visit and discuss. Blood pressures been running in the mid 130s. Denies any exertional shortness of breath. No orthopnea, PND, leg edema. No headache, lightheadedness, syncope. No prolonged palpitation irregular heartbeat. No recent lipid panel since addition of Zetia. No bleeding issues or neurologic events [facility] Medical History Erectile dysfunction Kidney stones CAD (coronary atherosclerotic disease) Acute non-ST elevation myocardial infarction (NSTEMI) HTN (hypertension) Surgical History History of coronary artery stent placement S/P cardiac cath Family History Father No family history of cancer Mother Leukemia Social History Household Members: Spouse Housing: House Do you presently have visiting nurse or other home services: No Alcohol intake: never Patient Tobacco Use Status: Never used Tobacco Tobacco use type: Cigarette Second Hand Smoke Exposure: No service: No Review of Systems Const Denies chills, Denies fatigue, Denies fever(s), Denies frequent falls, Denies weakness, Denies weight gain and Denies weight loss ENT Denies dizziness Card Denies chest pain, Denies leg edema, Denies lightheadedness, Denies palpitations, Denies dyspnea, Denies dyspnea on exertion, Denies orthopnea and D enies other (loss of consciousness) Resp Denies cough, Denies dyspnea and Denies dyspnea on exertion GI Denies hematochezia and Denies change in stool character Musc Denies abnormal gait, Denies muscle weakness, Denies numbness, Denies radiating pain into limb and Denies tingling Neuro Denies abnormal gait, Denies dizziness, Denies frequent falls, Denies numbness, Denies tingling and Denies weakness Endo Denies fatigue and Denies palpitations Physical Exam Vital Signs: Last Vital Signs Pulse 92 02/25/24 10:48 BP 132/88 02/25/24 10:48 BMI result Body Mass Index 30.4 Const General: cooperative, healthy appearing, comfortable and no acute distress Orientation/consciousness: patient oriented x3 Neck Neck: Yes normal visual inspection and Yes no JVD Resp Effort & Inspection: normal respiratory effort Auscultation: clear to auscultation bilaterally, no crackles, no rales, no rhonchi and no wheezes Cardio Jugular venous distension: no JVD Rate: regular rate Rhythm: regular rhythm Heart sounds: S1 normal heart sound present, S2 normal heart sound present, no murmurs and no rubs Neuro General: patient oriented x3 Extrem General: Yes normal to inspection and No no pedal edema Psych Appearance: grossly normal Mental Status: mental status grossly normal Speech and movement: Normal speech and movement present Assessment & Plan Assessment & Plan (1) CAD (coronary atherosclerotic disease): Code(s): I25.10 - Atherosclerotic heart disease of [place] coronary artery without angina pectoris Category: Medical Plan: CAD with diffuse coronary disease with stenting of the OM branch with drug- eluting stent. Continue dual antiplatelet therapy with prolonged anti platelet therapy for about total of 30 months. Will discontinue next year after 30 months of therapy. Continue lifelong aspirin therapy beyond that. Continue aggressive vascular risk factor modification. His lipids are not well optimized importance of this was discussed. Advised lipid panel in near future along with normal risk factor markers to be evaluated for more intense lipid modification. Target goal LDL around 50 mg/dL. This was discussed with him. Continue aggressive blood pressure control, see below. Encouraged to participate in physical activity as tolerated advised to call me with any new symptoms. (2) HTN (hypertension): Code(s): I10 - Essential (primary) hypertension Category: Medical Plan: Hypertension which is currently borderline optimized. Importance of good blood pressure control was discussed importance of not stopping his medications abruptly was discussed. Advised to monitor blood pressure at home maintain a log. Goal blood pressure less than 130 over systolic. Continue to uptitrate amlodipine as tolerated if blood pressure remains elevated. Low-salt diet was discussed. Stress mitigation strategies was discussed. Improving overall heart healthy lifestyle was discussed. Follow up in the clinic in 1 year's time, sooner p.r.n.. Thank you for allowing me to partake in his care Orders: Orders Lipid Panel Today I25.10 - Atherosclerotic heart disease of [place] coronary artery without angina pectoris CRP High Sensitivity Today E78.5 - Hyperlipidemia, unspecified, I25.10 - Atherosclerotic heart disease of [place] coronary artery without angina pectoris Lipoprotein A Today I25.10 - Atherosclerotic heart disease of [place] coronary artery without angina pectoris Apolipoprotein B Today I25.10 - Atherosclerotic heart disease of [place] coronary artery without angina pectoris Medications: New metoprolol succinate ER (Toprol XL) 50 mg PO DAILY 90 tabs 3RF I25.10 - Atherosclerotic heart disease of [place] coronary artery without angina pectoris Coding Level of Care Code Est Pt Level 4 (21606) Complex EM visit Add On G2211 Diagnoses CAD (coronary atherosclerotic disease) I25.10 HTN (hypertension) I10
[2024-02-25 10:48] VITALS: BP 132/88; PULSE 92; BMI 30.4
== END 2024-02-25 11:06 | disposition home or self-care (01) ==
PROVIDERS: PCP Nurse Practitioner Primary Care; Visit Provider Internal Medicine Cardiovascular Disease
DX: I25.10 Atherosclerotic heart disease of native coronary artery without angina pectoris (principal); I10 Essential (primary) hypertension
CPT/HCPCS: 99214

== ENCOUNTER → 2024-02-25 10:38 | Outpatient (BNVA) | payer MEDICAID, SELFPAY | PROVIDERS: PCP Nurse Practitioner Primary Care; Visit Provider Internal Medicine Cardiovascular Disease | DX: I25.10 Atherosclerotic heart disease of native coronary artery without angina pectoris (principal); I10 Essential (primary) hypertension | CPT/HCPCS: 99212 ==

== ENCOUNTER 2024-05-05 09:35 | Outpatient (AMB) | payer MEDICAID, SELFPAY ==
--- NOTE | 2024-05-05 09:51 | MHC.OFFVIS ---
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 Patient reports random clicking and popping of the left thumb. He expresses weakness and lack of ROM. He states he noticed his left hand appears skinnier than his right hand. He expresses difficulty with squeezing, gripping, and grasping. Reports he can not open anything due to not having the ability to grasp thing tightly from the loss of strength and the difficulty of making a full closed fist. 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 Patient reports random clicking and popping of the left thumb. He expresses weakness and lack of ROM. He states he noticed his left hand appears skinnier than his right hand. He expresses difficulty with squeezing, gripping, and grasping. Reports he can not open anything due to not having the ability to grasp thing tightly from the loss of strength and the difficulty of making a full closed fist. [facility] Medical History Erectile dysfunction Kidney stones CAD (coronary atherosclerotic disease) Acute non-ST elevation myocardial infarction (NSTEMI) HTN (hypertension) Surgical History History of coronary artery stent placement S/P cardiac cath Family History Father No family history of cancer Mother Leukemia Social History Household Members: Spouse Housing: House Do you presently have visiting nurse or other home services: No Alcohol intake: current Alcohol intake frequency: holidays/special occasions only Patient Tobacco Use Status: Never used Tobacco Second Hand Smoke Exposure: No service: No Current occupational status: employed Current occupation: self employed/right handed Review of Systems Const All systems reviewed & are unremarkable except as noted in HPI and below Physical Exam Vital Signs: BMI result Body Mass Index 30.1 Extrem Other: Patient is alert, oriented, and in no acute distress. Neuro: Normal sensation of the tips of all digits of the left hand at this time Vascular: Cap refill brisk Pain: Mild tenderness to palpation about the basal joint of the left thumb Negative [place] Positive CMC grind No tenderness to palpation of the radial styloid ROM: Patient is able to make a closed fist and extend all digits of the left hand fully, but reports discomfort in the base of the left thumb when doing so Skin: No lacerations or abrasions. General: No ecchymosis, erythema, or evidence of infection. Psych: Appears grossly normal Affect normal Attitude cooperative Results Reviewed Results Reviewed: X-rays obtained in the office today and independently reviewed by me, Leonardo Larsen PA-C, demonstrate moderate to severe basal joint arthritis of the left thumb. Assessment & Plan Assessment & Plan (1) Osteoarthritis of first carpometacarpal joint of left hand: Code(s): M18.12 - Unilateral primary osteoarthritis of first carpometacarpal joint, left hand Category: Medical Plan 1. 1st CMC joint arthritis of the left thumb Patient is educated about this condition Patient is educated about the treatment options available At this time, patient is educated that the joint space he has in his joint is so I do not feel I can adequately get a needle into the joint without imaging Therefore, patient was referred to Dr. Bradford for next available appointment for injection under C-arm imaging Patient was amenable to this plan Patient will follow-up next available appointment with Dr. Bradford, sooner with any acute concerns Coding Level of Care Code New Pt Level 3 (76097) Diagnoses Osteoarthritis of first carpometacarpal joint of left hand M18.12
[2024-05-05 09:55] VITALS: BMI 30.1
--- OUTSIDE RECORDS SUMMARY | 2024-05-05 10:18 | XMS_ITS | Encounter Summary ---
Author Organization [employer] Address [address] [place] [address] [address] [place] [address] Care Team Providers Care Chief Hospital Administrator Name Role Phone Jennifer Evans Primary Care Provider [phone] Reason for Visit * Reason Comments Med Refill Encounter Details Date Type Department Care Team ([facility] st Contact Info) Description 04/26/2023 Refill [facility] [address] [place] [address] Jennifer Evans ANP [address] [place] [address] Social History Tobacco Use Types Packs/Day Years Used Date Smoking Tobacco: Never Smokeless Tobacco: Never Alcohol Use Standard Drinks/Week Comments Not Currently 0 (1 standard drink = 0.6 oz pur e alcohol) Housing Stability Answer Date Recorded What is your housing situation today? I have jorje luciano 01/28/[address] you li ve. Do you have problems with any of the following? None of the above 01/28/2023 Food Insecurity Answer Date Recorded Within the past 12 months, y ou worried that your food would run out before you got money to buy more: Sometimes True 2022 Within the past 12 months,th e food you bought just didn't last and you didn't have enough money to get more: Sometimes True 01/28/2023 Transportation Answer Date Recorded In the past 12 months, has l ack of transportation kept you from medical appts, meetings, work or from getting things needed for daily living? No 01/28/2023 Utilities Answer Date Recorded In the past 12 months, has t he electric, gas, oil or water company threatened to shut off services in your home? Yes 01/17/2023 Depression Answer Date Recorded Patient Health Questionnaire-2 Score 0 10/02/2022 Sex and Gender Information Value Date Recorded Sex Assigned at Male 02/09/2022 10:20 AM EDT Legal Sex Male 10:20 AM EDT Gender Identity Male 02/09/2022 10:20 AM EDT Sexual Orientation Straight 02/09/2022 10 :20 AM EDT documented as of this encounter Miscellaneous Notes * Telephone Encounter - Mago Beltran RN - 05/07/2023 3:29 PM EST ----- Message from ELISHA Thomas sent at 05/07/2023 9:01 AM EST ----- Please let Adam know, labs were generally normal - his triglycerides (a type of cholesterol) werejust above normal - not change to his meds right now, but let's recheck in 3 mo to ensure not goingup. Recommend fatty fish, high fiber diet, exercise, mediterranean diet. documented in this encounter Plan of Treatment Upcoming Encounters Date Type Department Care Team (Late st Contact Info) Description 05/19/2024 9:15 AM EST Office Visit [facility] [address] [place] [address] Jennifer Evans ANP [address] [place] [address] documented as of this encounter Visit Diagnoses Not on filedocumented in this encounter Care Teams Chief Hospital Administrator Relationship Specialty Start Date End Date Jennifer Evans ANP [address] [place] [address] PCP - General Family Medicine 12/26/20 documented as of this encounter
--- OUTSIDE RECORDS SUMMARY | 2024-05-05 10:18 | XMS_ITS | Encounter Summary ---
Author Organization [employer] Address [address] [place] [address] 7t [place] [address] Care Team Providers Care Legal Operations Manager Name Role Phone Jennifer Evans Primary Care Provider [phone] Reason for Visit * Reason Comments Med Refill Encounter Details Date Type Department Care Team ([facility] st Contact Info) Description 11/09/2023 Refill [facility] MEDICINE [address] [place] [address] Jennifer Evans ANP [address] [place] [address] Social History Tobacco Use Types Packs/Day Years Used Date Smoking Tobacco: Never Passive Smoke Exposure: Never Smokeless Tobacco: Never Alcohol Use Standard [...] AM EDT documented as of this encounter Plan of Treatment Upcoming Encounters Date Type Department Care Team (Late st Contact Info) Description 05/19/2024 9:15 AM EST Office Visit [facility] MEDICINE [address] [place] [address] Jennifer Evans ANP [address] [place] [address] documented as of this encounter Visit Diagnoses Not on filedocumented in this encounter Care Teams Legal Operations Manager Relationship Specialty Start Date End Date Jennifer Evans ANP [address] [place] [address] PCP - General Family Medicine 12/26/20 documented as of this encounter
--- OUTSIDE RECORDS SUMMARY | 2024-05-05 10:18 | XMS_ITS | Encounter Summary ---
Author Organization [employer] Address [address] [place] [address] 7t [place] [address] Care Team Providers Care Chain Maker Machine Name Role Phone Jennifer Evans Primary Care Provider [phone] Encounter Details Date Type Department Care Team ([facility] st Contact Info) Description 04/10/2024 Telephone [facility] MEDICINE [address] [place] [address] Jennifer Evans ANP [address] [place] [address] Social History Tobacco Use Types Packs/Day Years Used Date Smoking Tobacco: Never Passive Smoke Exposure: Never Smokeless Tobacco: Never Alcohol Use Standard Drinks/Week Comments Not Currently 0 (1 standard drink = 0.6 oz pur e alcohol) Depression Answer Date Recorded Patient Health Questionnaire-9 Score 3 11/26/2023 Patient Health Questionnaire-9 Score 3 11/26/2023 Last PHQ-9: Questionnaire Data Not on file 0 11/26/2023 Housing Stability Answer Date Recorded What is [...] Answer Date Recorded Patient Health Questionnaire-2 Score 3 11/26/2023 Internet Access Answer Date Recorded Internet Access Q1 Yes 12/13/2023 Internet Access Q2 Not on file 12/13/2023 Sex and Gender Information Value Date Recorded Sex Assigned at Male 02/09/2022 10:20 AM EDT Legal Sex Male 10:20 AM EDT Gender Identity Male 02/09/2022 10:20 AM EDT Sexual Orientation Straight 02/09/2022 10 :20 AM EDT documented as of this encounter Plan of Treatment Upcoming Encounters Date Type Department Care Team (Late st Contact Info) Description 05/19/2024 9:15 AM EST Office Visit [facility] MEDICINE [address] [place] [address] Jennifer Evans ANP [address] [place] [address] documented as of this encounter Visit Diagnoses Not on filedocumented in this encounter Additional Health Concerns Assessment Noted Time PHQ-9 Depression Total Score: 3 11/26/19 24 2:32 PM EDT documented as of this encounter Care Teams Chain Maker Machine Relationship Specialty Start Date End Date Jennifer Evans ANP [address] [place] [phone] PCP - General Family Medicine 12/26/20 documented as of this encounter
--- OUTSIDE RECORDS SUMMARY | 2024-05-05 10:18 | XMS_ITS | Encounter Summary ---
Author Organization [employer] Address [address] [place] [address] 7t [place] [address] Care Team Providers Care Lead Technical Writer Name Role Phone Jennifer Evans Primary Care Provider [phone] Reason for Visit * Reason Comments Med Refill Encounter Details Date Type Department Care Team ([facility] st Contact Info) Description 01/28/2023 Refill [facility] MEDICINE [address] [place] [address] Jennifer Evans ANP [address] [place] [address] Social History Tobacco Use Types Packs/Day Years [...] Description 05/19/2024 9:15 AM EST Office Visit [facility] MEDICINE [address] [place] [address] Jennifer Evans ANP [address] [place] [address] documented as of this encounter Visit Diagnoses Not on filedocumented in this encounter Care Teams Lead Technical Writer Relationship Specialty Start Date End Date Jennifer Evans ANP [address] [place] [address] PCP - General Family Medicine 12/26/20 documented as of this encounter
--- OUTSIDE RECORDS SUMMARY | 2024-05-05 10:18 | XMS_ITS | Clinical Summary ---
Author Organization [employer] Address [address] [place] [address] 7t [place] [address] Care Team Providers Care Fusion Juncture Grinder Name Role Phone Jennifer Evans ELISHA Primary Care Provider Allergies No known active allergies Medications nitroglycerin (Nitrostat) 0.[address] 1 TABLET UNDER TONGUE EVERY 5 MIN NEEDED FOR CHEST PAIN, MAX OF 3 DOSES/15 MIN CALL 911/SEEK MEDICAL ATTENTION IF PAIN PERSISTS 3 Active sildenafil (Viagra) 100 MG tabletIndications :Vasculogenic erectile dysfunction, unspecified vasculogenic erectile dysfunction type Take 1 tablet (100 mg) by mouth if needed each day for erectile dysfunction. 20 tablet 4 Active metoprolol tartrate (Lopressor) 25 MG tablet TAKE 1 TABLET(25 MG) BY MOUTH TWICE DAILY 180 tablet 1 4 Active aspirin (Aspirin Low Dose) 81 MG EC tabletIndications :Atherosclerosis of [place] coronary artery of [place] heart without angina pectoris TAKE 1 TABLET BY MOUTH EVERY DAY 90 tablet 3 4 Active atorvastatin (Lipitor) 80 MG tabletIndications :Atherosclerosis of [place] coronary artery of [place] heart without angina pectoris Take 1 tab at bedtime 90 tablet 3 4 Active ezetimibe (Zetia) 10 MG tablet Take 10 mg by mouth Once per day. 4 Active Brilinta 60 MG tablet Take 60 mg by mouth 2 times daily. 4 Active amLODIPine (Norvasc) 5 MG tablet TAKE 1 TABLET BY MOUTH EVERY DAY 90 tablet 1 4 Active Active Problems Problem Noted Date Diagnosed Date Arthritis of carpometacarpal (CMC) joint of left thumb 03/29/2024 Kidney stones 09/10/2023 Assessment & Plan (09/10/2023 11:55 AM EDT): Patient has a f/u appointment with urology 09/21/23 I advise to drink plenty of water Ureteral stent present 09/10/2023 Assessment & Plan (09/10/2023 11:55 AM EDT): F/u with urology DIONI (acute kidney injury) 09/10/2023 Assessment & Plan (09/10/2023 11:56 AM EDT): Most likely secondary to obstruction, should be resolved now Other fatigue 09/10/2023 Assessment & Plan (09/10/2023 11:56 AM EDT): Hgb at office done 16.1 Benign essential HTN 08/04/2023 Atherosclerosis of [place] co ronary artery of [place] heart without angina pectoris 04/23/2023 Overview (04/23/2023): On BB, DAPT, high intensity statin Cont plan per cards Dr. Aparicio: Continue aggressive medical therapy. Importance of dual antiplatelet therapy given the nature of drug-eluting stent was discussed. May consider continuing prolonged dual antiplatelet therapy for 30 months. Blood pressure is well optimized see below. Continue high-intensity statin therapy. Advised lipid panel near future with target goal LDL closer to 60 mg/dL and triglycerides less than 200 mg/dL. S/p [place] 09/2022, [place] [facility] [place] Stress test 03/2023 NM/NM cardiolite stress test Impression: 1. Normal myocardial perfusion 2. Gated LVEF is 52% 3. Transient ischemic dilatation not present Stress EKG is positive for ischemia, clinical correlation suggested [and] Exercise stress test with exercise 10 min 8 sec of Michael protocol protocol, achieving 85% MPHR, without anginal symptoms, with isolated PACs, PVCs rare ventricular cuplet, with normotensive response to exercise, with EKG changes meeting criteria for ischemia: inferolateral leads with gradual improvement back to baseline in recovery. Nuclear images pending. Test reviewed with Dr Aparicio Echo 09/2022 Echocardiogram showed EF 45-50%, basal inferior, mid inferior, basal inferior septal hypokinesis, grade 1 diastolic dysfunction Acute coronary syndrome 09/30/2022 Acute non-ST elevation myocardial infarction (NS CURTIS) 09/30/2022 Chest pain 09/30/2022 Encounters Date Type Department Care Team Description 04/10/2024 Telephone [facility] MEDICINE [address] [place] [address] Jennifer Evans ANP 04/03/2024 Telephone [facility] MEDICINE [address] [place] [address] Kyle Redman [place] recall 03/29/2024 Telephone [facility] MEDICINE [address] [place] [address] Jennifer Evans ANP Results; Referral 03/29/2024 Orders Only [facility] [address] [facility] [place] [address] Jennifer Evans ANP Arthritis of carpometacarpal (CMC) joint of left thumb (Primary Dx) 03/23/2024 9:00 AM EST Office Visit [facility] OPTOMETRY [address] [place] [address] Tarka, Lisa, OD Regular astigmatism, bilateral (Primary Dx); Open angle with borderline findings, low risk, bilateral; [place]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 03/23/2024 Travel from Last 3 Months Immunizations Name Administration Dates Next Due Tdap 01/28/2021 Social History Tobacco Use Types Packs/Day Years Used Date Smoking Tobacco: Never Passive Smoke Exposure: Never Smokeless Tobacco: Never Tobacco Cessation:Counseling Given: Not Answered Alcohol Use Standard Drinks/Week Comments Not Currently [...] Orientation Straight 02/09/2022 10 :20 AM EDT Last Filed Vital Signs Vital Sign Reading Time Taken Comments Blood Pressure 140/88 11/26/2023 1:53 PM EDT Pulse 65 11/26/2023 1:53 PM EDT Temperature 36.8 ??C (98.2 ??F) 11/26/2023 1:53 PM ED T Respiratory Rate 20 11/26/2023 1:53 PM EDT Oxygen Saturation 99% 11/26/2023 1:53 PM EDT Inhaled Oxygen Concentration - - Weight 94.5 kg (208 lb 6.4 oz) 11/26/2023 1:53 P M EDT Height 177.8 cm (5' 10 ) 11/26/2023 1:53 PM EDT Body Mass Index 29.9 11/26/2023 1:53 PM EDT Plan of Treatment Upcoming Encounters Date Type Department Care Team (Late st Contact Info) Description 05/19/2024 9:15 AM EST Office Visit [facility] MEDICINE [address] [place] [address] Jennifer Evans ANP [address] [place], [place] [phone] Health Maintenance Due Date Last Done Comments CT Colonography 1973 Colonoscopy 1973 Colorectal Cancer Screening 1973 FIT DNA/Cologuard 1973 FIT 1973 FOBT 1973 Sigmoidoscopy 1973 Pneumococcal Vaccine: Pediatrics (0 to 5 Years) and At-Risk Patients (6 to 64 Years) (1 of 2 - PCV) 09/29/1979 Alcohol/Substance Use Screening 1985 Family Planning (PISQ) 1988 Hepatitis A Vaccines (1 of 2 - Risk 2-dose series) 1992 Hepatitis B Vaccines (1 of 3 - 19+ 3-dose series) 1992 Zoster Vaccines (1 of 2) 09/29/2023 COVID-19 Vaccine (2023-2 5 season) 2023 03/26/2021, 07/17/2020 Influenza Vaccine (#1) 2023 SDOH Screening 07/12/2024 07/13/2023 Depression Screening 11/25/2024 11/26/2023, 11/26/2023 Tobacco Screening 03/23/2025 03/23/2024 Lipid Panel 04/23/2028 04/23/2023, 09/26/2022, 12/26/2020 DTaP/Tdap/Td Vaccines (2 - T d or Tdap) 01/28/2031 01/28/2021 RSV Patients and Patients Aged 60 years or older (1 - 1-dose 75+ series) 2048 HIV Screening Completed 12/26/2020 Hepatitis C Screening Completed 04/23/2023 , 12/26/2020 HIB Vaccines Aged Out No longer eligi ble based on patient's age to complete this topic HPV Vaccines Aged Out No longer eligi ble based on patient's age to complete this topic IPV Vaccines Aged Out No longer eligi ble based on patient's age to complete this topic Meningococcal Vaccine Aged Out No gricel ray eligible based on patient's age to complete this topic RSV under 20 months Aged Out No longe r eligible based on patient's age to complete this topic Rotavirus Vaccines Aged Out No longer eligible based on patient's age to complete this topic Procedures Procedure Name Priority Date/Time Associated Diagnosis Comments OCT, OPTIC NERVE - OU - BOTH EYES Routine 03/23/2024 9:35 AM EST Open angle with borderline findings, low risk, bilateral HEPATITIS C VIRAL RNA, QUANTITATIVE, REAL-TIME PCR Routine 04/23/2023 12:23 PM EST HCV antibody positive LIPID PANEL, STANDARD Routine 04/23/2023 12:23 PM EST Coronary artery disease involving [place] coronary artery of [place] heart without angina pectoris HIV 1/2 ANTIGEN/ANTIBODY, FOURTH GENERATION W/RFL Routine 12/26/2020 10:58 AM EDT from Last 3 Months or Most Recently Relevant to Health Maintenance Results * OCT, Optic Nerve - OU - Both Eyes (03/23/2024 9:35 AM EST) Lisa Kyle, OD - 03/23/2024 9:35 AM EST OCT OPTIC NERVE INTERPRETATION Optical Coherence Tomography Interpretation Report Reliability: OD: 57 (good quality) OS: 53 (good quality) Measurements: Avg RNFL thickness OD: ??118 microns OS: ??122 microns Test findings: OD: Large disc area, robust RNFL 360 OS: Large disc area, robust RNFL 360 Impression and Plan: Large ONH without glaucomatous damage both eyes (OU). Monitor annually. Lisa Whelan OD OPHTH TOMOGRAPHY Final Result * Hepatitis C Viral RNA, Quantitative, Real-Time PCR (04/23/2023 12:23 PM EST) Hepatitis C Viral Load <15 NOT DETECTED NOT DETECTED IU/mL [facility] HCV Log PCR <1.18 NOT DETECTED NOT DETECTED Log IU/mL [facility] Comment:This test was perfor med using Real-Time Polymerase ChainReaction.Reportable Range: 15 IU/mL to 100,000,000 IU/mL(1.18 Log IU/mL to 8.00 Log IU/mL).The analytical performance characteristics of thisassay have been determined by [employer].The modifications have not been cleared or approved bythe FDA. This assay has been validated pursuant to theCLIA regulations and is used for clinical purposes.For more information on this test, go to:http://education.FiscalNote/faq/ZFI28n9(This link is being provided for informational/educational purposes only.)THIS TEST WAS PERFORMED AT:[employer] [place] [id number] MANUEL MD Blood 04/23/2023 12:2 3 PM EST 04/23/2023 1:09 PM EST Jennifer Evans [facility] LAB BLOOD ORDERABLES Final Resul t Performing Organization Address [facility] [place] de Phone Number [facility] [address] [place] [address] [phone] * (ABNORMAL) Lipid Panel, Standard (04/23/2023 12:23 PM EST) Triglycerides 151(H) <150 mg/dL [facility] Comment:Desirable Triglyceri de: less than 150 mg/dLBorderline High Triglyceride 150-199 mg/dLHigh Triglyceride: 200-499 mg/dLVery High Triglyceride: greater than or equal to 5OO mg/dL Cholesterol 145 <200 mg/dL [facility] Comment:Desirable Cholestero l: less than 200 mg/dLBorderline High Cholesterol: 200-239 mg/dLHigh Cholesterol: greater than 239 mg/dL LDL Cholesterol Calculated 83 <100 mg/dL [facility] Comment:Desirable LDL: less than 100 mg/dLNear Optimal/Above Optimal LDL: 110- 129 mg/dLBorderline High LDL: 130-159 mg/dLHigh LDL: 160-189 mg/dLVery High LDL: greater than or equal to 190 mg/dL HDL Cholesterol 32(L) >40 mg/dL [facility] Comment:Desirable HDL: great er than 40 mg/dL Note: This HDL assay may give artificially low results in patients with liver disease. Blood Venous blood specimen / Unknown 04/23/2023 12:23 PM EST 04/23/2023 1:09 PM EST Jennifer Evans ANP LAB BLOOD ORDERABLES Final Resul t Performing Organization Address City/[facility]/ZIP Co de Phone Number [facility] [address] [place] [address] [phone] * HIV 1/2 ANTIGEN/ANTIBODY,FOURTH GENERATION W/RFL (12/26/2020 10:58 AM EDT) HIV-1/2 ANTIGEN AND ANTIBODIES, 4TH GENERATION W/ REFLEX NON-REACT ALFRED NON-REACT ALFRED [facility] Comment: HIV-1 antigen and HIV-1/HIV-2 antibodies were not detected. There is no laboratory evidence of HIV infection. ?? PLEASE NOTE: This information has been disclosed to you from records whose confidentiality may be protected by state law. ??If your state requires such protection, then the state law prohibits you from making any further disclosure of the information without the specific written consent of the person to whom it pertains, or as otherwise permitted by law. A general authorization for the release of medical or other information is NOT sufficient for this purpose. ? For additional information please refer to http://education.FiscalNote/faq/OXL593 (This link is being provided for informational/ educational purposes only.) ? The performance of this assay has not been clinically validated in patients less than 2 years old. ?? 12/26/2020 10:5 8 AM EDT [facility] LAB BLOOD ORDERABLES Final Resul t [facility] [address] from Last 3 Months or Most Recently Relevant to Health Maintenance Insurance [facility] C3 HSN FULL Care Teams Fusion Juncture Grinder Relationship Specialty Start Date End Date Jennifer Evans ANP [address] [place] [phone] PCP - General Family Medicine 12/26/20
--- OUTSIDE RECORDS SUMMARY | 2024-05-05 10:18 | XMS_ITS | Encounter Summary ---
Author Organization [employer] Address [address] [place] [address] [address]t [place] [address] Care Team Providers Care Lime Boiler Name Role Phone Jennifer Evans Primary Care Provider [phone] Reason for Visit * Reason Comments Med Refill Encounter Details Date Type Department Care Team ([facility] st Contact Info) Description 11/07/2023 Refill [facility] MEDICINE [address] [place] [address] Jennifer Evans ANP [address] [place] [address] Social History Tobacco Use Types Packs/Day Years [...] Description 05/19/2024 9:15 AM EST Office Visit [facility] MEDICINE [address] [place] [address] Jennifer Evans ANP [address] [place] [address] documented as of this encounter Visit Diagnoses Not on filedocumented in this encounter Care Teams Lime Boiler Relationship Specialty Start Date End Date Jennifer Evans ANP [address] [place] [address] PCP - General Family Medicine 12/26/20 documented as of this encounter
== END 2024-05-05 10:41 | disposition home or self-care (01) ==
PROVIDERS: PCP Nurse Practitioner Primary Care
DX: M18.12 Unilateral primary osteoarthritis of first carpometacarpal joint, left hand (principal)
CPT/HCPCS: 99203

== ENCOUNTER → 2024-05-05 09:35 | Outpatient (BNVA) | payer MEDICAID, SELFPAY | PROVIDERS: PCP Nurse Practitioner Primary Care | DX: M18.12 Unilateral primary osteoarthritis of first carpometacarpal joint, left hand (principal) | CPT/HCPCS: 99212 ==

== ENCOUNTER 2024-05-11 09:14 | Outpatient (REF) | payer MEDICAID, SELFPAY ==
--- NOTE | ~2024-05-11 | US_ITS ---
Examination: Penile Doppler flow study. CLINICAL INDICATION: Erectile dysfunction. COMPARISON: None. TECHNIQUE: Routine grayscale followed by color and Doppler imaging of right and left cavernosa was performed pre and post Doppler injection x2 FINDINGS: On initial grayscale imaging there is normal appearing right and left cavernosal arteries and normal caliber. No echogenic calcification visualized. On color imaging there is normal right and left cavernosal arterial flow seen. Initially 30 mg of papillary was injected. Due to suboptimal results a second dose of 30 mg is injected 10 minutes later. On Doppler waveform: Right cavernosal artery, Preinjection measures 15.6 peak systolic velocity and end-diastolic velocity 2.0. Injection time peak systolic velocity is 17.0 and end diastolic velocities 6.3 5 minutes Post injection peak systolic velocities 30.9 and end-diastolic velocity 7.9. 10 minutes postinjection peak systolic velocity measures 30.4 and end diastolic velocity measures 8.4. 15 minutes postinjection peak systolic velocity measures 14.7 and end diastolic velocity is 4.2. 20 minutes postinjection peak systolic velocity measures 16.3 and end diastolic velocity is 3.3. 25 minutes postinjection peak systolic velocity measures 20.5 and end diastole velocity measures 3.5. 30 minutes postinjection peak systolic velocity is 11.7 and an end-diastolic velocity measures 1.58. LEFT CAVERNOSAL ARTERY: Preinjection peak systolic velocity is 12.7 and end diastolic velocity is 2.7. Injection time peak systolic velocities 39.7 end diastolic basilar velocity is 16.8. 5 minutes postinjection peak systolic velocity is 22.5 and endo diastolic velocity is 10.6. 10 minutes postinjection peak systolic velocity is 19.3 and end diastolic velocity is 7.5. 15 minutes post injection peak systolic velocity is 11.3 and end systolic velocity 4.2 20 minutes postinjection peak systolic velocity measures 10.1 and end systolic velocity measures 3.3. 25 minutes postinjection peak systolic velocity measures 8.1 and end diastolic velocity measures 1.9. 30 minutes post injection peak systolic velocity measures 5.46 and end-diastolic velocity is 1.74 US/US duplex AV flow penis comp IMPRESSION: No tyler scale abnormality seen involving the penile shaft. On Doppler imaging there is initial raise in the right cavernosal artery as well as peak systolic velocity up to 10 minutes with subtly drops of the normal at the same time the endovascular velocity increases to above 8.4. Overall findings are suggestive of venous insufficiency unable to hold and maintain blood volume. Similar findings are seen within the left cavernosal artery findings No major discrepancy between the right and left cavernosal artery velocities. Electronically signed by: Arnoldo Roth MD 05/12/2024 03:08 PM TAHIRA
--- NOTE | 2024-05-11 11:19 | W.PM.OPN ---
Operative Note Operative Note Date of Service: 05/11/24 Narrative: Brief Operative Note Date of procedure: 05/11/2024 Pre-op diagnosis: erectile dysfunction Post-op diagnosis: same Procedure: Penile injection performed in ultrasound department for evaluation of erectile dysfunction. Papaverine 60 mg per 2 mL: Injected 2mL/60mg using sterile technique at the 2 o'clock position of the base of the penis. Instructions provided should erection persist more than 30 minutes. Sterile technique used. Consent obtained. All questions were answered. CPT 17739 Anesthesia: none Surgeon: Amaris Hernandez
--- OUTSIDE RECORDS SUMMARY | 2024-05-11 12:25 | XMS_ITS | Encounter Summary ---
Author Organization [employer] Address [address] [place] [address] [address]t [place] [address] Care Team Providers Care Data Processing Clerk Name Role Phone Jennifer Evans Primary Care Provider [phone] Reason for Visit * Reason Comments Med Refill Encounter Details Date Type Department Care Team ([facility] st Contact Info) Description 11/09/2023 Refill [facility] MEDICINE [address] [place] [address] Jennifer Evans ANP [address] [place] [address] Social History Tobacco Use Types Packs/Day Years [...] Description 05/19/2024 9:15 AM EST Office Visit [facility] MEDICINE [address] [place] [address] Jennifer Evans ANP [address] [place] [address] documented as of this encounter Visit Diagnoses Not on filedocumented in this encounter Care Teams Data Processing Clerk Relationship Specialty Start Date End Date Jennifer Evans ANP [address] [place] [address] PCP - General Family Medicine 12/26/20 documented as of this encounter
--- OUTSIDE RECORDS SUMMARY | 2024-05-11 12:25 | XMS_ITS | Encounter Summary ---
Author Organization [employer] Address [address] [place] [address] 7t [place] [address] Care Team Providers Care Film Crew Member Name Role Phone eJnnifer Evans Primary Care Provider [phone] Reason for Visit * Reason Comments Med Refill Encounter Details Date Type Department Care Team ([facility] st Contact Info) Description 01/28/2023 Refill [facility] MEDICINE [address] [place] [address] Jennifer Evans ANP [address] [place] [address] Social History Tobacco Use Types Packs/Day Years [...] Description 05/19/2024 9:15 AM EST Office Visit [facility] MEDICINE [address] [place] [address] Jennifer Evans ANP [address] [place] [address] documented as of this encounter Visit Diagnoses Not on filedocumented in this encounter Care Teams Film Crew Member Relationship Specialty Start Date End Date Jennifer Evans ANP [address] [place] [address] PCP - General Family Medicine 12/26/20 documented as of this encounter
--- OUTSIDE RECORDS SUMMARY | 2024-05-11 12:25 | XMS_ITS | Encounter Summary ---
Author Organization [employer] Address [address] [place] [address] [address] [place] [address] Care Team Providers Care Client Relation Specialist Name Role Phone Jennifer Evans Primary Care Provider [phone] Reason for Visit * Reason Comments Pre-visit Planning SDOH screening posit linsey and Tobacco screening negative Encounter Details Date Type Department Care Team ([facility] st Contact Info) Description 05/08/2024 Patient Outreach [facility] MEDICINE [address] [place] [address] Jennifer Evans ANP [address] [place] [address] Pre-visit Planning (SDOH screening positive and Tobacco screening negative) Social History Tobacco Use Types Packs/Day Years [...] AM EDT documented as of this encounter Progress Notes * Sammie Sheppard - 05/08/2024 10:07 AM EST CC Sammie Neri placed successful outbound call to patient for pre-visit planning. Patient name and confirmed. Patient confirms appt date and time, and has transportation arrangements. Biggest concern for appointment at this time is no concerns. Patient advised to bring to appointment a photo id and insurance card. Appropriate screenings completed in anticipation of appointment. SDOH positive. Patient looking for assistance with food insecurities; Sometimes and utilities.. Referral will be placed. documented in this encounter Plan of Treatment Upcoming Encounters Date Type Department Care Team (Late st Contact Info) Description 05/19/2024 9:15 AM EST Office Visit [facility] MEDICINE [address] [place] [address] Jennifer Evans ANP [address] [place] [address] documented as of this encounter Visit Diagnoses Not on filedocumented in this encounter Additional Health Concerns Assessment Noted Time PHQ-9 Depression Total Score: 3 11/26/19 24 2:32 PM EDT documented as of this encounter Care Teams Client Relation Specialist Relationship Specialty Start Date End Date Jennifer Evans ANP [address] [place] [address] PCP - General Family Medicine 12/26/20 documented as of this encounter
--- OUTSIDE RECORDS SUMMARY | 2024-05-11 12:25 | XMS_ITS | Clinical Summary ---
Author Organization [employer] Address [address] [place] [address] 7t [place] [address] Care Team Providers Care Product Safety Technical Assistant Name Role Phone Jennifer Evans ELISHA Primary Care Provider [phone] Allergies No known active allergies Medications nitroglycerin [...] Dose) 81 MG EC tabletIndications :Atherosclerosis of passamaqu[place] coronary artery of pass[place] heart without angina pectoris TAKE 1 TABLET BY MOUTH EVERY DAY 90 tablet 3 4 Active atorvastatin (Lipitor) 80 MG tabletIndications :Atherosclerosis of pass[place] coronary artery of [place] heart without angina pectoris Take 1 tab [...] 16.1 Benign essential HTN 08/04/2023 Atherosclerosis of pass[place]dy co ronary artery of passama[place]dy heart without angina pectoris 04/23/2023 Overview (04/23/2023): [...] and triglycerides less than 200 mg/dL. S/p [place] 09/2022, [place] [facility] [place] Stress [place] 03/2023 NM/NM cardiolite stress [...] Encounters Date Type Department Care Team Description 05/08/2024 Patient Outreach [facility] MED[facility] [address] [place] [phone] Jennifer Evans ANP Care Coordination (CHW outreach for SDOH food needs - LVM ) 05/08/2024 Patient Outreach [facility] [address] [place] [address] Jennifer Evans ANP Pre-visit Planning (SDOH screening positive and Tobacco screening negative) 04/10/[address] [address] Jennifer Evans ANP 04/03/[address] [address] Kyle Redman [place] recall 03/29/[address] [address] Jennifer Evans ANP Results; Referral 03/29/2024 Orders Only [address] [address] Jennifer Evans ANP Arthritis of carpometacarpal (CMC) joint of left thumb (Primary Dx) 03/23/2024 9:00 AM EST Office Visit [facility] OPTOMETRY [address] [place], [place] [phone] Tarka, Lisa, OD Regular astigmatism, bilateral (Primary [...] Visit [facility] [address] [place], [place] [phone] Jennifer Evans, ELISHA [address] [place] [address] Health Maintenance Due Date Last Done Comments CT Colonography 1973 Colonoscopy 1973 Colorectal Cancer Screening 1973 FIT DNA/Cologuard 1973 FIT 1973 FOBT 1973 Sigmoidoscopy 1973 Alcohol/Substance Use Screening 1985 Family Planning (PISQ) 1988 Hepatitis A Vaccines (1 of 2 - Risk 2-dose series) 1992 Hepatitis B Vaccines (1 of 3 - 19+ 3-dose series) 1992 Pneumococcal Vaccine: 50+ Years (1 of 2 - PCV) 1992 Zoster Vaccines (1 of 2) 09/29/2023 COVID-19 Vaccine (3 - 2023-2 5 season) 2023 03/26/2021, 07/17/2020 Influenza Vaccine (#1) 2023 Depression Screening 11/25/2024 11/26/2023, 11/26/2023 Tobacco Screening 03/23/2025 03/23/2024 SDOH Screening 05/08/2025 05/08/2024 Lipid Panel 04/23/2028 04/23/2023, 09/26/2022, 12/26/2020 DTaP/Tdap/Td [...] 12:23 PM EST Coronary artery disease involving passamaquoddy coronary artery of passamaqu[place]dy heart without angina pectoris HIV 1/2 ANTIGEN/ANTIBODY, FOURTH GENERATION W/RFL Routine 12/26/2020 10:58 AM EDT from Last 3 Months or Most Recently Relevant to Health Maintenance Results * OCT, Optic Nerve - OU - Both Eyes (03/23/2024 9:35 AM EST) Deborah Lisa Whelan, OD - 03/23/2024 9:35 AM EST OCT [...] Load <15 NOT DETECTED NOT DETECTED IU/mL [facility] HCV Log PCR <1.18 NOT DETECTED NOT DETECTED Log IU/mL [facility] Comment:This test was perfor med using Real-Time Polymerase ChainReaction.Reportable Range: 15 IU/mL to 100,000,000 IU/mL(1.18 Log IU/mL to 8.00 Log IU/mL).The analytical performance characteristics of thisassay have been determined by [employer].The modifications have not been cleared or approved bythe FDA. This assay has been validated pursuant to theCLIA regulations and is used for clinical purposes.For more information on this test, go to:http://education.Lockr/faq/SJY57x5(This link is being provided for informational/educational purposes only.)THIS TEST WAS PERFORMED AT:[facility] [place] [id number] MANUEL MD Blood 04/23/2023 12:2 3 PM EST 04/23/2023 1:09 PM EST Jennifer Evans [facility] LAB BLOOD ORDERABLES Final Resul t [facility] [address] [place] [address] [phone] * (ABNORMAL) Lipid Panel, Standard (04/23/2023 12:23 PM EST) Triglycerides 151(H) <150 mg/dL [facility] Comment:Desirable Triglyceri de: less than 150 mg/dLBorderline High Triglyceride 150-199 mg/dLHigh Triglyceride: 200-499 mg/dLVery High Triglyceride: greater than or equal to 5OO mg/dL Cholesterol 145 <200 mg/dL [facility] Comment:Desirable Cholestero l: less than 200 mg/dLBorderline High Cholesterol: 200-239 mg/dLHigh Cholesterol: greater than 239 mg/dL LDL Cholesterol Calculated 83 <100 mg/dL [facility] Comment:Desirable LDL: less than 100 mg/dLNear Optimal/Above Optimal LDL: 110- 129 mg/dLBorderline High LDL: 130-159 mg/dLHigh LDL: 160-189 mg/dLVery High LDL: greater than or equal to 190 mg/dL HDL Cholesterol 32(L) >40 mg/dL [facility] Comment:Desirable HDL: great er than 40 mg/dL Note: This HDL assay may give artificially low results in patients with liver disease. Blood Venous blood specimen / Unknown 04/23/2023 12:23 PM EST 04/23/2023 1:09 PM EST Jennifer Evans [facility] LAB BLOOD ORDERABLES Final Resul t Performing Organization Address [facility]/ZIP Co de Phone Number [facility] [address] [place] [address] [phone] * HIV 1/2 ANTIGEN/ANTIBODY,FOURTH GENERATION W/RFL (12/26/2020 10:58 AM EDT) HIV-1/2 ANTIGEN AND ANTIBODIES, 4TH GENERATION W/ REFLEX NON-REACT ALFRED NON-REACT ALFRED [facility] Comment: HIV-1 antigen and HIV-1/HIV-2 [...] ? For additional information please refer to http://education.Viscose Closures.Alchimer/faq/OGE153 (This link is being provided for informational/ educational purposes only.) ? The performance of this assay has not been clinically validated in patients less than 2 years old. ?? 12/26/2020 10:5 8 AM EDT Jennifer Evans ANP LAB BLOOD ORDERABLES Final Resul t Performing Organization Address [facility] Co de Phone Number [facility] [address] from Last 3 Months or Most Recently Relevant to Health Maintenance Insurance [facility] C3 HSN FULL Care Teams Product Safety Technical Assistant Relationship Specialty Start Date End Date Jennifer Evans ANP [address] [place] [address] PCP - General Family Medicine 12/26/20
--- OUTSIDE RECORDS SUMMARY | 2024-05-11 12:25 | XMS_ITS | Encounter Summary ---
Author Organization [employer] Address [address] [place] [address] 7t [place] [address] Care Team Providers Care Pharmacology Associate Name Role Phone Jennifer Evans Primary Care Provider [phone] Reason for Visit * Reason Comments Med Refill Encounter Details Date Type Department Care Team ([facility] st Contact Info) Description 11/07/2023 Refill [facility] [address] [place] [address] Jennifer Evans ANP [address] [place] [address] Social History Tobacco Use Types Packs/Day Years [...] Description 05/19/2024 9:15 AM EST Office Visit [facility] [address] [place] [address] Jennifer Evans ANP [address] [place] [address] documented as of this encounter Visit Diagnoses Not on filedocumented in this encounter Care Teams Pharmacology Associate Relationship Specialty Start Date End Date Jennifer Evans ANP [address] [place] [address] PCP - General Family Medicine 12/26/20 documented as of this encounter
--- OUTSIDE RECORDS SUMMARY | 2024-05-11 12:25 | XMS_ITS | Encounter Summary ---
Author Organization [employer] Address [address] [place] [address] 7t [place] [address] Care Team Providers Care Curer Foam Rubber Name Role Phone Jennifer Evans Primary Care Provider [phone] Reason for Visit * Reason Comments Care Coordination CHW outreach for SDO H food needs - LVM Encounter Details Date Type Department Care Team (Latest Contact Info) Description 05/08/2024 Patient Outreach [facility] [address] [place] [address] Jennifer Evans ANP [address] [place] [address] Care Coordination (CHW outreach for SDOH food needs - LVM ) Social History Tobacco Use Types Packs/Day Years [...] as of this encounter Progress Notes * Hernando León - 05/08/2024 1:58 PM EST CHW Hernando León, placed outbound call to patient for assistance with SDOH as a referral was placed by the provider. Patient had screened positive for the following SDOH insecurities. No answer atthis time. Patient's name and were not confirmed. CHW left detailed message and provided contact information requesting return call for assistance. Patient educated on extended clinic hours on Mondays through Wednesdays, and Walk-In Urgent Care Located in [facility]. Patient provided with after-hours line for [facility], , which offer night time triage service and option to transfer toon call provider if needed. documented in this encounter Plan of Treatment Upcoming Encounters Date Type Department Care Team (Late st Contact Info) Description 05/19/2024 9:15 AM EST Office Visit [facility] [address] [place] [address] Jennifer Evans ANP [address] [place] [address] documented as of this encounter Visit Diagnoses Not on filedocumented in this encounter Additional Health Concerns Assessment Noted Time PHQ-9 Depression Total Score: 3 11/26/19 24 2:32 PM EDT documented as of this encounter Care Teams Curer Foam Rubber Relationship Specialty Start Date End Date Jennifer Evans ANP [address] [facility] [place] [address] PCP - General Family Medicine 12/26/20 documented as of this encounter
--- OUTSIDE RECORDS SUMMARY | 2024-05-11 12:25 | XMS_ITS | Encounter Summary ---
Author Organization [employer] Address [address] [place] [address] 7t [place] [address] Care Team Providers Care Control Valve Mechanic Name Role Phone Jennifer Evans Primary Care Provider [phone] Reason for Visit * Reason Comments Med Refill Encounter Details Date Type Department Care Team ([facility] st Contact Info) Description 04/26/2023 Refill [facility] [address] [place] [address] Jennifer Evans ANP [address] [place] [address] Social History Tobacco Use Types Packs/Day Years [...] Description 05/19/2024 9:15 AM EST Office Visit [facility] [address] [place] [address] Jennifer Evans ANP [address] [place] [address] documented as of this encounter Visit Diagnoses Not on filedocumented in this encounter Care Teams Control Valve Mechanic Relationship Specialty Start Date End Date Jennifer Evans ANP [address] [place] [address] PCP - General Family Medicine 12/26/20 documented as of this encounter
== END 2024-05-11 09:15 | disposition home or self-care (01) ==
LOC: HO.US 09:14
PROVIDERS: PCP Nurse Practitioner Primary Care; Visit Provider Nurse Practitioner Family
DX: I25.10 Atherosclerotic heart disease of native coronary artery without angina pectoris (principal); N52.9 Male erectile dysfunction, unspecified
CPT/HCPCS: 93980

== ENCOUNTER → 2024-05-11 09:14 | Outpatient (BNV) | payer MEDICAID, SELFPAY | PROVIDERS: PCP Nurse Practitioner Primary Care; Visit Provider Nurse Practitioner Family | DX: N52.9 Male erectile dysfunction, unspecified (principal) | CPT/HCPCS: 54235 ==

== ENCOUNTER → 2024-05-11 10:04 | Outpatient (BNV) | payer MEDICAID, SELFPAY | PROVIDERS: PCP Nurse Practitioner Primary Care; Visit Provider Radiology Diagnostic Radiology | DX: N52.01 Erectile dysfunction due to arterial insufficiency (principal) | CPT/HCPCS: 93980 ==

== ENCOUNTER 2024-11-23 14:07 | Outpatient (REF) | payer BC, SELFPAY ==
--- NOTE | ~2024-11-23 | US_ITS ---
EXAMINATION: US KIDNEY BILATERAL HISTORY: N20.0 - Calculus of kidney TECHNIQUE: Real-time grayscale ultrasound imaging of the kidneys was performed and images were reviewed. COMPARISON: Correlation is made with an unenhanced CT of the abdomen dated 09/02/2023. FINDINGS: Right kidney: The right kidney measures 11.1 x 6.6 x 6.4 cm. Renal parenchymal echotexture and thickness are normal. There are no masses. There is no hydronephrosis or renal calculi. Left Kidney: The left kidney measures 12.1 x 6.7 x 5.4 cm. Renal parenchymal echotexture and thickness are normal. There is a 1.8 x 1.4 x 2.0 cm septated cyst at the lower pole. There is no hydronephrosis or renal calculi. US/US renal BI IMPRESSION: 1.8 x 1.4 x 2.0 cm septated cyst at the lower pole of the left kidney. Otherwise unremarkable renal ultrasound. Electronically signed by: Richmond Sandy MD 11/23/2024 03:05 PM EDT
--- OUTSIDE RECORDS SUMMARY | 2024-11-23 14:56 | XMS_ITS | Clinical Summary ---
Author Organization [employer] Address [address] [facility] 7[address] [place] [address] Care Team Providers Care Assistant Manager/Embalmer Name Role Phone Jennifer Evans ELISHA Primary Care Provider Allergies No known active allergies Medications nitroglycerin (Nitrostat) 0.[address] 1 TABLET UNDER TONGUE EVERY 5 MIN NEEDED FOR CHEST PAIN, MAX OF 3 DOSES/15 MIN CALL 911/SEEK MEDICAL ATTENTION IF PAIN PERSISTS 10/01/19 23 Active sildenafil (Viagra) 100 MG tabletIndicatio ns:Vasculogenic erectile dysfunction, unspecified vasculogenic erectile dysfunction type Take 1 tablet (100 mg) by mouth if needed each day for erectile dysfunction. 20 tablet 04/23/19 24 Active ezetimibe (Zetia) 10 MG tablet Take 10 mg by mouth Once per day. 08/20/19 24 Active Brilinta 60 MG tablet Take 60 mg by mouth 2 times daily. 11/02/19 24 Active amLODIPine (Norvasc) 5 MG tablet TAKE 1 TABLET BY MOUTH EVERY DAY 90 tablet 1 11/10/19 25 Active aspirin (Aspirin Low Dose) 81 MG EC tabletIndicatio ns:Atherosclero sis of platinum coronary artery of platinum heart without angina pectoris TAKE 1 TABLET BY MOUTH EVERY DAY 90 tablet 3 11/10/19 25 Active atorvastatin (Lipitor) 80 MG tabletIndicatio ns:Atherosclero sis of platinum coronary artery of platinum heart without angina pectoris Take 1 tab at bedtime 90 tablet 3 11/10/19 25 Active metoprolol tartrate (Lopressor) 25 MG tablet Take 1 tablet (25 mg) by mouth 2 times daily. 180 tablet 1 11/10/19 25 Active metoprolol tartrate (Lopressor) 25 MG tablet TAKE 1 TABLET(25 MG) BY MOUTH TWICE DAILY 180 tablet 1 08/04/19 24 025 Discontinued(Re order (will not trigger notification to Pharmacy)) aspirin (Aspirin Low Dose) 81 MG EC tabletIndicatio ns:Atherosclero sis of platinum coronary artery of platinum heart without angina pectoris TAKE 1 TABLET BY MOUTH EVERY DAY 90 tablet 3 11/26/19 24 025 Discontinued(Re order (will not trigger notification to Pharmacy)) atorvastatin (Lipitor) 80 MG tabletIndicatio ns:Atherosclero sis of platinum coronary artery of platinum heart without angina pectoris Take 1 tab at bedtime 90 tablet 3 11/26/19 24 025 Discontinued(Re order (will not trigger notification to Pharmacy)) amLODIPine (Norvasc) 5 MG tablet TAKE 1 TABLET BY MOUTH EVERY DAY 90 tablet 1 01/11/20 24 025 Discontinued(Re order (will not trigger notification to Pharmacy)) Active Problems Problem Noted Date Diagnosed Date [...] 16.1 Benign essential HTN 08/04/2023 Atherosclerosis of platinum co ronary artery of platinum heart without angina pectoris 04/23/2023 Overview (04/23/2023): [...] and triglycerides less than 200 mg/dL. S/p [place] 09/2022, [place] [facility] [place] Stress [place] 03/2023 NM/NM cardiolite [...] Encounters Date Type Department Care Team Description 11/09/2024 Refill [facility] [address] [place] [address] Jennifer Evans ANP Atherosclerosis of platinum coronary artery of platinum heart without angina pectoris from Last 3 Months Immunizations Immunization Administration Dates Next Due Tdap 01/28/2021 Social [...] 63 11/26/2023 1:53 PM EDT Temperature 36.8 C (98.2 F) 11/26/2023 1:53 PM EDT Respiratory Rate 20 11/26/2023 1:53 PM EDT [...] Care Team (Late st Contact Info) Description 01/05/2025 9:15 AM EDT Office Visit [facility] [address] [place] [address] Jennifer Evans, ANP [address] [place] [address] Health Maintenance Due Date Last Done Comments CT Colonography 1973 Colonoscopy 1973 Colorectal Cancer Screening 1973 FIT DNA/Cologuard 1973 FIT 1973 FOBT 1973 Sigmoidoscopy 1973 Disability Screening 1973 Alcohol/Substance Use Screening 1985 Family Planning (PISQ) 1988 Hepatitis B Vaccines (1 of 3 - 19+ 3-dose series) 1992 Pneumococcal Vaccine: 50+ Years (1 of 2 - PCV) 1992 Zoster Vaccines (1 of 2) 09/29/2023 COVID-19 Vaccine (3 - 2023-2 5 season) 2023 03/26/2021, 07/17/2020 Depression Screening 11/25/2024 11/26/2023, 11/26/2023 Influenza Vaccine (#1) 2024 Tobacco Screening 03/23/2025 03/23/2024 SDOH Screening 05/08/2025 [...] on patient's age to complete this topic Hepatitis A Vaccines Aged Out No long er eligible based on patient's age to complete this topic IPV Vaccines Aged Out No longer eligi ble based on patient's age to complete this topic Meningococcal B Vaccine Aged Out No l onger eligible based on patient's age to complete [...] Procedure Name Priority Date/Time Associated Diagnosis Comments HEPATITIS C VIRAL RNA, QUANTITATIVE, REAL-TIME PCR Routine 04/23/2023 12:23 PM EST HCV antibody positive LIPID PANEL, STANDARD Routine 04/23/2023 12:23 PM EST Coronary artery disease involving platinum coronary artery of platinum heart without angina pectoris HIV 1/2 ANTIGEN/ANTIBODY, FOURTH GENERATION W/RFL Routine 12/26/2020 10:58 AM EDT from Last 3 Months or Most Recently Relevant to Health Maintenance Results * Hepatitis C Viral RNA, Quantitative, Real-Time PCR (04/23/2023 12:23 PM EST) Hepatitis C Viral Load <15 NOT DETECTED NOT DETECTED IU/mL [facility] HCV Log PCR <1.18 NOT DETECTED NOT DETECTED Log IU/mL [facility] Comment:This test was perfor med using Real-Time Polymerase ChainReaction.Reportable Range: 15 IU/mL to 100,000,000 IU/mL(1.18 Log IU/mL to 8.00 Log IU/mL).The analytical performance characteristics of thisassay have been determined by [employer].The modifications have not been cleared or approved bythe FDA. This assay has been validated pursuant to theCLIA regulations and is used for clinical purposes.For more information on this test, go to:http://education.BIScience/faq/DKI80i3(This link is being provided for informational/educational purposes only.)THIS TEST WAS PERFORMED AT:[facility] [place] [id number] MANUEL MD Blood 04/23/2023 12:2 3 PM EST 04/23/2023 1:09 PM EST Jennifer [facility] LAB BLOOD ORDERABLES Final Resul t [facility] [address] [place] [address] [phone] * (ABNORMAL) Lipid Panel, Standard (04/23/2023 12:23 PM EST) Triglycerides 151(H) <150 mg/dL [facility] Comment:Desirable Triglyceri de: less than 150 mg/dLBorderline High Triglyceride 150-199 mg/dLHigh Triglyceride: 200-499 mg/dLVery High Triglyceride: greater than or equal to 5OO mg/dL Cholesterol 145 <200 mg/dL [facility] Comment:Desirable Cholestero l: less than 200 mg/dLBorderline High Cholesterol: 200-239 mg/dLHigh Cholesterol: greater than 239 mg/dL LDL Cholesterol Calculated 83 <100 mg/dL [facility] Comment:Desirable LDL: less than 100 mg/dLNear Optimal/Above Optimal LDL: 110- 129 mg/dLBorderline High LDL: 130-159 mg/dLHigh LDL: 160-189 mg/dLVery High LDL: greater than or equal to 190 mg/dL HDL Cholesterol 32(L) >40 mg/dL [facility] Comment:Desirable HDL: great er than 40 mg/dL Note: This HDL assay may give artificially low results in patients with liver disease. Blood Venous blood specimen / Unknown 04/23/2023 12:23 PM EST 04/23/2023 1:09 PM EST [facility] LAB BLOOD ORDERABLES Final Resul t [facility] [address] [place] [address] [phone] * HIV 1/2 ANTIGEN/ANTIBODY,FOURTH GENERATION W/RFL (12/26/2020 10:58 AM EDT) HIV-1/2 ANTIGEN AND ANTIBODIES, 4TH GENERATION W/ REFLEX NON-REACT ALFRED NON-REACT ALFRED [facility] Comment: HIV-1 antigen and HIV-1/HIV-2 antibodies were not detected. There is no laboratory evidence of HIV infection. PLEASE NOTE: This information has been disclosed to you from records whose confidentiality may be protected by state law. If your state requires such protection, then the state law prohibits you from making any further disclosure of the information without the specific written consent of the person to whom it pertains, or as otherwise permitted by law. A general authorization for the release of medical or other information is NOT sufficient for this purpose. For additional information please refer to http://Tumotorizado.com.BIScience/faq/HRI303 (This link is being provided for informational/ educational purposes only.) The performance of this assay has not been clinically validated in patients less than 2 years old. 12/26/2020 10:5 8 AM EDT [facility] LAB BLOOD ORDERABLES Final Resul t [facility] [address] from Last 3 Months or Most Recently Relevant to Health Maintenance Insurance [facility] HMO Care Teams Assistant Manager/Embalmer Relationship Specialty Start Date End Date Jennifer Evans ANP [address] [place] [address] PCP - General Family Medicine 12/26/20
== END 2024-11-23 14:08 | disposition home or self-care (01) ==
LOC: HO.US 14:07
PROVIDERS: PCP Nurse Practitioner Primary Care; Visit Provider Urology
DX: N20.0 Calculus of kidney (principal)
CPT/HCPCS: 76775

== ENCOUNTER → 2024-11-23 14:09 | Outpatient (BNV) | payer BC, SELFPAY | PROVIDERS: PCP Nurse Practitioner Primary Care; Visit Provider Radiology Diagnostic Radiology | DX: N28.1 Cyst of kidney, acquired (principal) | CPT/HCPCS: 76775 ==